=== PATIENT | female | born 1960 | race African-American/Black ===

== ENCOUNTER → 2017-04-01 | Outpatient (CLI) | payer BC | LOC: RAD 10:50 | PROVIDERS: ATTEND Family Medicine | DX: R10.31 Right lower quadrant pain (principal) | CPT/HCPCS: 74176 ==

== ENCOUNTER → 2017-07-17 | Outpatient (CLI) | payer BC ==
--- NOTE | 2017-07-19 13:23 | WOMENS IMAGING REPORT ---
EXAM DESCRIPTION: BILAT SCREENING MAMMO W/CAD COMPLETED DATE/TIME: 07/17/2017 3:40 pm REASON FOR STUDY: BILTERAL SCREENING Z12.31 ENCNTR SCREEN MAMMOGRAM FOR MALIGNANT NEOPLASM OF MARII COMPARISON: 2015 TECHNIQUE: Standard craniocaudal and mediolateral oblique views of each breast recorded using digita l acquisition. LIMITATIONS: None. FINDINGS: RIGHT BREAST MASSES: No suspicious masses. CALCIFICATIONS: No new or suspicious calcifications. ARCHITECTURAL DISTORTION: None. DEVELOPING DENSITY: None. ASYMMETRY: None noted. OTHER: No other significant findings. LEFT BREAST MASSES: No suspicious masses. CALCIFICATIONS: No new or suspicious calcifications. ARCHITECTURAL DISTORTION: Area of architecture distortion and possible developing mass central breast 12 o'clock 7.8 cm from the nipple DEVELOPING DENSITY: None. ASYMMETRY: None noted. OTHER: No other significant findings. Read with the assistance of CAD. .[facility] - R2 Cenova Version 1.3 .[facility] - R2 Cenova Version 1.3 .[facility] - R2 Cenova Version 2.4 .[facility] - R2 Cenova Version 2.4 .[facility] - R2 All Purpose Clerk Version 9.2 IMPRESSION: Architecture distortion in the left breast BREAST DENSITY: b. There are scattered areas of fibroglandular density. BIRAD: 0 Incomplete: Needs Additional Imaging Evaluation and/or prior Mammograms for Comparison. RECOMMENDATION: RECOMMENDED FOLLOW-UP: Breast tomosynthesis with spot compression and ultrasound. The patient will be contacted for additional imaging. COMMENT: The patient has been notified of the results by letter per [place] requirements. Additional no tification policies are in place for contacting patient with suspicious or incomplete findings. Quality ID #[id number]: The [employer] recommends an annual screening mammogram for women aged 40 years or over. This facility utilizes a reminder system to ensure that all patients receive reminder letters, and/or direct phone calls for appointments. This includes reminders for routine scr eening mammograms, diagnostic mammograms, or other Breast Imaging Interventions when appropriate. Th is patient will be placed in the appropriate reminder system. The [employer] (ACR) has developed recommendations for screening MRI of the breast s in certain patient populations, to be used in conjunction with mammography. Breast MRI surveillanc e may be appropriate for women with more than 20% lifetime risk of developing breast cancer as deter mined by genetic testing, significant family history of the disease, or history of mantle radiation f or Hodgkins Disease. ACR Practice Guidelines 2008. TECHNICAL DOCUMENTATION: FINDING NUMBER: (1) ASSESSMENT: (1) JOB ID: [id number] [employer]- All Rights Reserved
== END ==
LOC: WI 15:36
PROVIDERS: ATTEND Nurse Practitioner
DX: Z12.31 Encounter for screening mammogram for malignant neoplasm of breast (principal)
CPT/HCPCS: 77067; G0202

== ENCOUNTER → 2017-08-13 | Outpatient (CLI) | payer BC ==
--- NOTE | 2017-08-13 17:11 | WOMENS IMAGING REPORT ---
EXAM DESCRIPTION: 3D DX MAMMO LEFT UNILAT; U/S BREAST UNILAT LIMITED COMPLETED DATE/TIME: 08/13/2017 1:07 pm; 08/13/2017 1:35 pm REASON FOR STUDY: INCONCLUSIVE MAMMO; INCONCLUSIVE MAMMO; R92.2 R92.2 INCONCLUSIVE MAMMOGRAM COMPARISON: Multiple since 2015 TECHNIQUE: Cone compression craniocaudal and mediolateral oblique images of the breast recorded usin g digital acquisition and breast tomosynthesis. Left breast 90 mediolateral view. Left breast ultrasound LIMITATIONS: None. FINDINGS: BREAST: Left MASSES: The 12 o'clock position left breast, 5 to 6 cm from the nipple, a spiculated mass is present measuring about 2 cm in diameter. This mass is highly suspicious for malignancy. CALCIFICATIONS: No new or suspicious calcifications. ARCHITECTURAL DISTORTION: None. DEVELOPING DENSITY: None. ASYMMETRY: None noted. OTHER: No other significant findings. Read with the assistance of CAD. .[facility] - R2 Cenova Version 1.3 .[facility] - R2 Cenova Version 1.3 .[facility] - R2 Cenova Version 2.4 .[facility] [place] - R2 Cenova Version 2.4 .[facility] - R2 Reli[employer] Technicians Version 9.2 Left breast ultrasound: Ultrasound was performed by both myself as well as the technologist. At the 12 o'clock position, a 2 .4 x 1.5 cm mass is present with ill-defined margins internal color flow and acoustic absorption high ly suspicious for malignancy. This finding was discussed with the patient. She understands the need for left breast biopsy. IMPRESSION: Left breast mass at the 12 o'clock position highly suspicious for malignancy (BI-RADS 5) BREAST DENSITY: b. There are scattered areas of fibroglandular density. BIRAD: 5 Highly suggestive of malignancy. Appropriate action should be taken. RECOMMENDATION: RECOMMENDED FOLLOW UP: Left breast ultrasound-guided core biopsy and post biopsy cli p placement. Follow-up left breast two-view mammogram SPECIFIC INTERVENTION/IMAGING/CONSULTATION RECOMMENDED:As above COMMUNICATION:Today's findings were discussed with the patient, she understands that she needs a left breast biopsy. The findings were also discussed with Lashonda Frederick 08/13/2017 1330 hours. COMMENT: The patient has been notified of the results by letter per MQSA requirements. Additional no tification policies are in place for contacting patient with suspicious or incomplete findings. Quality ID #[id number]: The [employer] recommends an annual screening mammogram for women aged 40 years or over. This facility utilizes a reminder system to ensure that all patients receive reminder letters, and/or direct phone calls for appointments. This includes reminders for routine scr eening mammograms, diagnostic mammograms, or other Breast Imaging Interventions when appropriate. Th is patient will be placed in the appropriate reminder system. The [employer] (ACR) has developed recommendations for screening MRI of the breast s in certain patient populations, to be used in conjunction with mammography. Breast MRI surveillanc e may be appropriate for women with more than 20% lifetime risk of developing breast cancer as deter mined by genetic testing, significant family history of the disease, or history of mantle radiation f or Hodgkins Disease. ACR Practice Guidelines 2008. DBT Technology DBT is a type of tomographic mammography. With conventional mammography, overlapping breast tissue ma y make lesions difficult to detect, even with good compression. DBT uses an x-ray tube that rotates a round the breast, taking images at different angles. These images are then combined to create thin sl ices of the breast that the radiologist can view as a 3D reconstruction. The [employer] unit can perform full-field digital mammograms (2D imaging); or DBT (3D imaging); or both, in a combination mode that quickly performs both the mammogram and the tomosynthesis scan while the breast is still compressed. PQRS 6045F: Fluoroscopic imaging is not utilized for breast tomosynthesis. TECHNICAL DOCUMENTATION: FINDING NUMBER: (1) ASSESSMENT: (1) JOB ID: [id number] [employer]- All Rights Reserved
--- NOTE | 2017-08-13 17:11 | WOMENS IMAGING REPORT ---
EXAM DESCRIPTION: 3D DX MAMMO LEFT UNILAT; U/S BREAST UNILAT LIMITED COMPLETED DATE/TIME: 08/13/2017 1:07 pm; 08/13/2017 1:35 pm REASON FOR STUDY: INCONCLUSIVE MAMMO; INCONCLUSIVE MAMMO; R92.2 R92.2 INCONCLUSIVE MAMMOGRAM COMPARISON: Multiple since 2015 TECHNIQUE: Cone compression craniocaudal and mediolateral oblique images of the breast recorded usin g digital acquisition and breast tomosynthesis. Left breast 90 mediolateral view. Left breast ultrasound LIMITATIONS: None. FINDINGS: BREAST: Left MASSES: The 12 o'clock position left breast, 5 to 6 cm from the nipple, a spiculated mass is present measuring about 2 cm in diameter. This mass is highly suspicious for malignancy. CALCIFICATIONS: No new or suspicious calcifications. ARCHITECTURAL DISTORTION: None. DEVELOPING DENSITY: None. ASYMMETRY: None noted. OTHER: No other significant findings. Read with the assistance of CAD. .[facility] - R2 Cenova Version 1.3 .[facility] - R2 Cenova Version 1.3 .[facility] - R2 Cenova Version 2.4 .[facility] - R2 Cenova Version 2.4 .[facility] - R2 Certified Juvenile Probation Officer Version 9.2 Left breast ultrasound: Ultrasound was performed by both myself as well as the technologist. At the 12 o'clock position, a 2 .4 x 1.5 cm mass is present with ill-defined margins internal color flow and acoustic absorption high ly suspicious for malignancy. This finding was discussed with the patient. She understands the need for left breast biopsy. IMPRESSION: Left breast mass at the 12 o'clock position highly suspicious for malignancy (BI-RADS 5) BREAST DENSITY: b. There are scattered areas of fibroglandular density. BIRAD: 5 Highly suggestive of malignancy. Appropriate action should be taken. RECOMMENDATION: RECOMMENDED FOLLOW UP: Left breast ultrasound-guided core biopsy and post biopsy cli p placement. Follow-up left breast two-view mammogram SPECIFIC INTERVENTION/IMAGING/CONSULTATION RECOMMENDED:As above COMMUNICATION:Today's findings were discussed with the patient, she understands that she needs a left breast biopsy. The findings were also discussed with Lashonda Frederick 08/13/2017 1330 hours. COMMENT: The patient has been notified of the results by letter per MQSA requirements. Additional no tification policies are in place for contacting patient with suspicious or incomplete findings. Quality ID #[id number]: The [employer] recommends an annual screening mammogram for women aged 40 years or over. This facility utilizes a reminder system to ensure that all patients receive reminder letters, and/or direct phone calls for appointments. This includes reminders for routine scr eening mammograms, diagnostic mammograms, or other Breast Imaging Interventions when appropriate. Th is patient will be placed in the appropriate reminder system. The [employer] (ACR) has developed recommendations for screening MRI of the breast s in certain patient populations, to be used in conjunction with mammography. Breast MRI surveillanc e may be appropriate for women with more than 20% lifetime risk of developing breast cancer as deter mined by genetic testing, significant family history of the disease, or history of mantle radiation f or Hodgkins Disease. ACR Practice Guidelines 2008. DBT Technology DBT is a type of tomographic mammography. With conventional mammography, overlapping breast tissue ma y make lesions difficult to detect, even with good compression. DBT uses an x-ray tube that rotates a round the breast, taking images at different angles. These images are then combined to create thin sl ices of the breast that the radiologist can view as a 3D reconstruction. The [employer] unit can perform full-field digital mammograms (2D imaging); or DBT (3D imaging); or both, in a combination mode that quickly performs both the mammogram and the tomosynthesis scan while the breast is still compressed. PQRS 6045F: Fluoroscopic imaging is not utilized for breast tomosynthesis. TECHNICAL DOCUMENTATION: FINDING NUMBER: (1) ASSESSMENT: (1) JOB ID: [id number] [employer] All Rights Reserved
== END ==
LOC: WI 12:35
PROVIDERS: ATTEND Nurse Practitioner
DX: N63 Unspecified lump in breast (principal)
CPT/HCPCS: 77061; 76642; G0206

== ENCOUNTER → 2017-08-19 | Day surgery (SDC) | payer BC ==
--- NOTE | 2017-08-21 09:00 | WOMENS IMAGING REPORT ---
EXAM DESCRIPTION: U/S BREAST BX; LEFT DIG DX MAMMO NO CHG COMPLETED DATE/TIME: 08/19/2017 10:31 am; 08/19/2017 10:18 am REASON FOR STUDY: LT BREAST MASS; S/P LT BREAST BIOPSY N63 UNSPECIFIED LUMP IN BREAST COMPARISON: Previous mammograms and ultrasound 08/13/2017, 07/17/2017, 07/09/2016 TECHNIQUE: The procedure was discussed with the patient and the patient agreed to proceed. The patient was scanned and the area of interest in the 12 o'clock position 9 to 10 cm from the nippl e of the left breast was localized. This correlates with the area of concern on prior imaging studie s. This area was targeted for ultrasound-guided core biopsy. After sterile skin prep and 4 mL local lidocaine 1% for skin and deep tissue anesthesia, a 14 gauge c oaxial core biopsy needle was used to obtain several cores of tissue from the lesion. Under ultrasou nd guidance, a RIBBON clip was placed in the areas sampled. There were no immediate post-procedure c omplications. MAMMOGRAM: Post-procedure two view mammogram was acquired in the digital mammogram suite. The clip wa s 2 cm deep to the expected location on the follow-up mammograms. No significant hematoma. Pathology yields a diagnosis of invasive ductal carcinoma Pathology is concordant. Procedure performed by Dr. Corcoran, who notified the ordering physician's office of the results, . This result was also discussed with the ordering physician's office, 08/21/2017 0800 hours. LIMITATIONS: None. FINDINGS: Ultrasound guided breast biopsy, right breast, medial set diagnosis of invasive ductal car cinoma at the 12 o'clock position POST PROCEDURE MAMMOGRAMS FOR MARKER PLACEMENT: Yes IMPRESSION: ULTRASOUND-GUIDED CORE BIOPSY OF THE LEFT BREAST YIELDS A DIAGNOSIS OF INVASIVE DUCTAL C ARCINOMA BI-RADS 6 Known biopsy-proven malignancy. Appropriate action should be taken. COMMENT: COMMUNICATION: The patient's provider has been notified of the findings. The provider will discuss the findings with the patient. Patient medication list reviewed: Yes- Quality ID# [id number]:Eligible professional attests to documenting i n the medical record they obtained, updated, or reviewed the patient's current medications. TECHNICAL DOCUMENTATION: JOB ID: [id number] [employer]- All Rights Reserved
== END ==
LOC: WI 08:57
PROVIDERS: ATTEND Nuclear Medicine
PROC: 0HBU3ZX Excision of Left Breast, Percutaneous Approach, Diagnostic (ICD-10-PCS; principal; 2017-08-19)
DX: C50.912 Malignant neoplasm of unspecified site of left female breast (principal)
CPT/HCPCS: 19083; 88305; 88342

== ENCOUNTER 2017-12-23 11:58 | Inpatient (IN) | payer BC ==
[2017-12-23] MEDS ORDERED: NORMAL SALINE 1000 ML 1,000 ML IV ONE ×3 (12:42→17:07)
[2017-12-23] MEDS ORDERED: ONDANSETRON HCL INJ/PF 4 MG/2 ML SDV IV ONE (12:43)
--- NOTE | 2017-12-23 12:44 | ER Document Report ---
ED Medical Screen (RME) - General Chief Complaint: General Weakness Stated Complaint: WEAKNESS,NAUSEA Time Seen by Provider: 12/23/17 12:42 Notes: Patient is currently on chemotherapy for breast cancer. She reports feeling very weak with lots of nausea and vomiting over the last several days. TRAVEL OUTSIDE OF THE [place] IN LAST 30 DAYS: No - Related Data Allergies/Adverse Reactions: Sulfa (Sulfonamide Antibiotics) Adverse Reaction (Verified 12/23/17 12:00) Past Medical History Renal/ Medical History: Denies: Hx Peritoneal Dialysis Physical Exam - Vital signs Vitals: Temp Pulse Resp BP Pulse Ox 99.3 F 142 H 18 113/94 H 99 12/23/17 12:13 12/23/17 12:13 12/23/17 12:13 12/23/17 12:13 12/23/17 12:13 Course - Vital Signs Vital signs: Temp Pulse Resp BP Pulse Ox 99.3 F 142 H 18 113/94 H 99 12/23/17 12:13 12/23/17 12:13 12/23/17 12:13 12/23/17 12:13 12/23/17 12:13
[2017-12-23 13:13] LABS: HEMOGLOBIN 11.5 g/dL (12.0-15.5); MEAN CORPUSCULAR HEMOGLOBIN 28.8 pg (27.0-33.4); MEAN CORPUSCULAR HGB CONC 32.8 g/dL (32.0-36.0); MEAN CORPUSCULAR VOLUME 88 fl (80-97); PLATELET COUNT 105 10^3/uL (150-450); RED BLOOD COUNT 3.98 10^6/uL (3.72-5.28); RED CELL DISTRIBUTION WIDTH 19.5 % (11.5-14.0); WHITE BLOOD COUNT 16.3 10^3/uL (4.0-10.5)
[2017-12-23 13:19] LABS: INTERNATIONAL RATION (INR) 1.04; PROTHROMBIN TIME 14.3 SEC (11.4-15.4)
[2017-12-23 13:32] LABS: ALANINE AMINOTRANSFERASE 29 U/L (9-52); ALBUMIN 3.3 g/dL (3.5-5.0); ALKALINE PHOSPHATASE 121 U/L (38-126); ANION GAP 9 (5-19); ASPARTATE AMINO TRANSFERASE 14 U/L (14-36); BILIRUBIN,DIRECT 0.1 mg/dL (0.0-0.4); BILIRUBIN,TOTAL 1.1 mg/dL (0.2-1.3); BLOOD UREA NITROGEN 34 mg/dL (7-20); CALCIUM 9.3 mg/dL (8.4-10.2); CARBON DIOXIDE 22 mmol/L (22-30); CHLORIDE 100 mmol/L (98-107); POTASSIUM 5.1 mmol/L (3.6-5.0); SODIUM 130.5 mmol/L (137-145); TOTAL PROTEIN 5.6 g/dL (6.3-8.2)
[2017-12-23 13:39] LABS: GLUCOSE 423 mg/dL (75-110)
[2017-12-23 13:44] LABS: ABSOLUTE LYMPHOCYTES# (MANUAL) 2.1 10^3/uL (0.5-4.7); ABSOLUTE MONOCYTES # (MANUAL) 1.1 10^3/uL (0.1-1.4); ANISOCYTOSIS 2+; BAND NEUTROPHILS % (MANUAL) 2 % (3-5); BASOPHILS % (MANUAL) 0 % (0-2); EOSINOPHILS % (MANUAL) 0 % (0-6); LYMPHOCYTES % (MANUAL) 13 % (13-45); MONOCYTES % (MANUAL) 7 % (3-13); OVALOCYTES SLIGHT; PLATELET COMMENT DECREASED; POIKILOCYTOSIS 1+; ROULEAUX 1+; SCHISTOCYTES SLIGHT; SEGMENTED NEUTROPHILS % (MAN) 78 % (42-78); TEAR DROP CELLS SLIGHT; TOTAL CELLS COUNTED 100; TOXIC GRANULATION SLIGHT
--- NOTE | 2017-12-23 13:56 | RADIOLOGY REPORT (SQ) ---
EXAM DESCRIPTION: CHEST SINGLE VIEW portable COMPLETED DATE/TIME: 12/23/2017 1:39 pm REASON FOR STUDY: cough COMPARISON: 2008 EXAM PARAMETERS: NUMBER OF VIEWS: One view. TECHNIQUE: Single frontal radiographic view of the chest acquired. RADIATION DOSE: NA LIMITATIONS: None. FINDINGS: LUNGS AND PLEURA: No opacities, masses or pneumothorax. No pleural effusion. MEDIASTINUM AND HILAR STRUCTURES: No masses. Contour normal. HEART AND VASCULAR STRUCTURES: Heart normal in size. Normal vasculature. BONES: No acute findings. HARDWARE: Port on the right. OTHER: No other significant finding. IMPRESSION: Nothing acute. TECHNICAL DOCUMENTATION: JOB ID: [id number] [employer]- All Rights Reserved
[2017-12-23] MEDS ORDERED: CEFEPIME 1 GM/D5W RTU 1 GM/50 ML RTUPB IV ONE (15:32)
--- NOTE | 2017-12-23 15:35 | ER Document Report ---
ED General - General Chief Complaint: General Weakness Stated Complaint: WEAKNESS,NAUSEA Time Seen by Provider: 12/23/17 12:42 TRAVEL OUTSIDE OF THE [place] IN LAST 30 DAYS: No - HPI Patient complains to provider of: not feeling well Onset: Last week Onset/Duration: Gradual, Worse Quality of pain: No pain Associated symptoms: Body/muscle aches, Chills, Nonproductive cough, Nausea, Vomiting Exacerbated by: Denies Relieved by: Denies - Related Data Allergies/Adverse Reactions: Sulfa (Sulfonamide Antibiotics) Adverse Reaction (Verified 12/23/17 12:00) Past Medical History - General Information source: Patient - Social History Smoking Status: Never Smoker Frequency of alcohol use: None Drug Abuse: None Lives with: Family Family History: Reviewed & Not Pertinent Patient has suicidal ideation: No Patient has homicidal ideation: No - Past Medical History Cardiac Medical History: Reports: Hx Hypertension Pulmonary Medical History: Reports: None Neurological Medical History: Reports: None Endocrine Medical History: Reports: Hx Diabetes Mellitus Type 2 Renal/ Medical History: Denies: Hx Peritoneal Dialysis Malignancy Medical History: Reports: Hx Breast Cancer - chemo 2 weeks ago Psychiatric Medical History: Reports: None Traumatic Medical History: Reports: None Past Surgical History: Reports: Other - port Review of Systems - Review of Systems Constitutional: Chills, Weakness EENT: No symptoms reported Cardiovascular: No symptoms reported Respiratory: No symptoms reported Gastrointestinal: See HPI Genitourinary: No symptoms reported Female Genitourinary: No symptoms reported Musculoskeletal: No symptoms reported Skin: No symptoms reported Hematologic/Lymphatic: No symptoms reported Neurological/Psychological: No symptoms reported Physical Exam - Vital signs Vitals: Temp Pulse Resp BP Pulse Ox 99.3 F 142 H 18 113/94 H 99 12/23/17 12:13 12/23/17 12:13 12/23/17 12:13 12/23/17 12:13 12/23/17 12:13 - Notes Notes: Female exam PHYSICAL EXAMINATION: GENERAL: The ill-appearing. No acute distress. HEAD: Atraumatic, normocephalic. EYES: Pupils equal round and reactive to light, extraocular movements intact, conjunctiva are normal. ENT: Nares patent, oropharynx with white patchy areas consistent with thrush. Dry mucous membranes. NECK: Normal range of motion, supple without lymphadenopathy LUNGS: Breath sounds clear to auscultation bilaterally and equal. No wheezes rales or rhonchi. HEART:tachy without murmurs ABDOMEN: Soft, nontender, nondistended abdomen. No guarding, no rebound. No masses appreciated. Female : deferred Musculoskeletal: Normal range of motion, no pitting or edema. No cyanosis. NEUROLOGICAL: Cranial nerves grossly intact. Normal speech. Normal sensory, motor exams PSYCH: Normal mood, normal affect. SKIN: Warm, Dry, normal turgor, no rashes or lesions noted. Right anterior chest wall without signs or symptoms of infection Course - Re-evaluation Re-evalutation: 12/23/17 17:[address] Odering third NS bolus. - Vital Signs Vital signs: Temp Pulse Resp BP Pulse Ox 99.5 F 142 H 18 110/70 98 12/23/17 16:14 12/23/17 12:13 12/23/17 16:00 12/23/17 13:13 12/23/17 13:13 - Laboratory Result Diagrams: 12/23/17 12:55 12/23/17 12:55 Laboratory results interpreted by me: 12/23/17 12/23/17 12:55 12:55 WBC 16.3 H Hgb 11.5 L Hct 35.0 L RDW 19.5 H Plt Count 105 L Band Neutrophils % 2 L Abs Neuts (Manual) 13.0 H Sodium 130.5 L Potassium 5.1 H BUN 34 H Creatinine 1.51 H Est GFR ( Amer) 43 L Est GFR (Non-Af Amer) 35 L Glucose 423 H* Total Protein 5.6 L Albumin 3.3 L - Diagnostic Test Radiology reviewed: Image reviewed, Reports reviewed Radiology results interpreted by me: 12/23/17 17:03 No acute findings chest x-ray - EKG Interpretation by Me Rate: Tachycardia - 132. LVH Discharge - Discharge Clinical Impression: Breast cancer, Neutrophilic leukocytosis, Hyponatremia, Uncontrolled diabetes mellitus, Thrush, oral, Sinus tachycardia Condition: Stable Disposition: ADMITTED INPATIENT Admitting Provider: Hospitalist Romi Mcdermott Unit Admitted: Telemetry
[2017-12-23 17:24] LABS: APPEARANCE,URINE SLIGHTLY-CLOUDY; BILIRUBIN,URINE NEGATIVE (NEGATIVE); COLOR,URINE YELLOW; GLUCOSE, URINE >=500 mg/dL (NEGATIVE); KETONES,URINE NEGATIVE (NEGATIVE); LEUKOCYTE ESTERASE,URINE LARGE (NEGATIVE); NITRITE,URINE NEGATIVE (NEGATIVE); PROTEIN,URINE 30 mg/dL (NEGATIVE); URINE SPECIFIC GRAVITY 1.015; UROBILINOGEN,URINE NEGATIVE mg/dL (<2.0)
[2017-12-23] MEDS ORDERED: ONDANSETRON HCL INJ/PF 4 MG/2 ML SDV IV PRN (17:33)
[2017-12-23] MEDS ORDERED: DEXTROSE 50%-WATER 25 GM/50 ML DISP.SYRIN IV PRN ×2 (17:43)
[2017-12-23] MEDS ORDERED: GLUCAGON,HUMAN RECOMB 1 MG INJ IM PRN (17:43)
[2017-12-23] MEDS ORDERED: DEXTROSE 40% GEL 15 GM TUBE PO PRN ×2 (17:43)
[2017-12-23] MEDS ORDERED: POTASSI CL 20 MEQ/NS 1L 1,000 ML IV PRN (17:49)
[2017-12-23] MEDS ORDERED: PIPERACILLIN SODIUM/TAZOBACTAM 3.375 GM in NORMAL SALINE 100 ML IV SCH (18:00)
[2017-12-23] MEDS ORDERED: VANCOMYCIN HCL 0 MG in DEXTROSE 5%-WATER 250 ML IV NR (18:00)
--- NOTE | 2017-12-23 18:13 | PDOC H&P ---
History of Present Illness Admission Date/PCP: 12/23/17 15:49 director product safety: [facility] Oncologist: [facility] in [place] History of Present Illness: CINTHIA ROSS is a 57 year old female who presents to the emergency room with fever and shaking chills and weakness. Her past medical history is significant for stage II breast cancer for which she is undergoing treatment in [place]. The patient is feeling quite poorly and this an extremely poor historian however it appears her past medical history is significant for a transplanted kidney in 1998, diabetes mellitus, hypertension and hyperlipidemia. She is chronically immunosuppressed due to her transplanted kidney. She reports that s she just started a new chemotherapy a couple of weeks ago and that she is felt extremely poorly since that time. She has had increasing weakness. She has poor p.o. intake and has not been eating or drinking. She states that she has a dry cough. She has had nausea but no vomiting. She has some mild stomach pain and she is having dysuria and thinks she may have a urinary tract infection. Past Medical History Cardiac Medical History: Reports: Hypertension Pulmonary Medical History: Reports: None Neurological Medical History: Reports: None Endocrine Medical History: Reports: Diabetes Mellitus Type 2 Renal/ Medical History: Reports: Other - The patient has a transplanted kidney Malignancy Medical History: Reports: Breast Cancer - chemo 2 weeks ago Psychiatric Medical History: Reports: None Traumatic Medical History: Reports: None Hematology: Reports: Anemia - Iron deficiency anemia Past Surgical History Past Surgical History: Reports: Other - port Social History Information Source: Patient Lives with: Family Smoking Status: Never Smoker Frequency of Alcohol Use: None Hx Recreational Drug Use: No Family History Family History: Reviewed & Not Pertinent Parental Family History Reviewed: Yes Children Family History Reviewed: Yes Sibling(s) Family History Reviewed.: Yes Medication/Allergy Allergies/Adverse Reactions: Sulfa (Sulfonamide Antibiotics) Adverse Reaction (Verified 12/23/17 12:00) Review of Systems Constitutional: PRESENT: anorexia, chills, fatigue, fever(s), headache(s), weakness Eyes: ABSENT: visual disturbances Ears: ABSENT: hearing changes Nose, Mouth, and Throat: PRESENT: headache(s). ABSENT: mouth pain, sore throat , vertigo Cardiovascular: ABSENT: chest pain, dyspnea on exertion, edema, palpitations Respiratory: PRESENT: cough. ABSENT: hemoptysis, sputum Gastrointestinal: PRESENT: abdominal pain, nausea. ABSENT: diarrhea, vomiting Genitourinary: PRESENT: dysuria. ABSENT: hematuria Musculoskeletal: PRESENT: back pain, muscle weakness Integumentary: ABSENT: lesions, rash Neurological: PRESENT: confusion, dizziness, weakness. ABSENT: abnormal gait Psychiatric: ABSENT: anxiety, depression, hallucinations Endocrine: PRESENT: cold intolerance - Discharge 5 Physical Exam Vital Signs: Temp Pulse Resp BP Pulse Ox 99.5 F 142 H 18 110/70 98 12/23/17 16:14 12/23/17 12:13 12/23/17 16:00 12/23/17 13:13 12/23/17 13:13 General appearance: PRESENT: no acute distress, well-developed, well-nourished, other - Acutely ill-appearing Head exam: PRESENT: atraumatic, normocephalic Eye exam: PRESENT: conjunctiva pink, EOMI, PERRLA. ABSENT: scleral icterus Ear exam: PRESENT: normal external ear exam Mouth exam: PRESENT: dry mucosa, tongue midline Neck exam: ABSENT: carotid bruit, JVD, lymphadenopathy, thyromegaly Respiratory exam: PRESENT: clear to auscultation niki. ABSENT: rales, rhonchi, wheezes Cardiovascular exam: PRESENT: RRR. ABSENT: diastolic murmur, rubs, systolic murmur Pulses: PRESENT: normal dorsalis pedis pul GI/Abdominal exam: PRESENT: soft, tenderness. ABSENT: rebound, rigid Rectal exam: PRESENT: deferred Extremities exam: PRESENT: full ROM. ABSENT: calf tenderness, clubbing, pedal edema Neurological exam: PRESENT: alert, awake, oriented to person, oriented to place , oriented to time, oriented to situation, CN II-XII grossly intact. ABSENT: motor sensory deficit Psychiatric exam: PRESENT: appropriate affect, normal mood. ABSENT: homicidal ideation, suicidal ideation Skin exam: PRESENT: dry, intact, warm. ABSENT: cyanosis, rash Results Laboratory Results: 12/23/17 16:55 Urine Color YELLOW Urine Appearance SLIGHTLY-CLOUDY Urine pH 5.0 Ur Specific [place] 1.015 Urine Protein 30 H Urine Glucose (UA) >=500 H Urine Ketones NEGATIVE Urine Blood SMALL H Urine Nitrite NEGATIVE Ur Leukocyte Esterase LARGE H Urine WBC (Auto) 42 Urine RBC (Auto) 5 Impressions: Chest X-Ray 12/23/17 00:00 IMPRESSION: Nothing acute. Assessment & Plan - Diagnosis (1) Sepsis Plan: The patient has evidence of early sepsis. She has leukocytosis, fever, tachypnea, sinus tachycardia and evidence of infection with a urinary tract infection. She also she also is chronically immunosuppressed due to her immunosuppressive drugs for her kidney transplant and recent chemotherapy and may not be mounting an impressive immune response. Therapy will be outlined below. (2) Urinary tract infection Is this a current diagnosis for this admission?: Yes Plan: Foods that the patient is having fevers and shaking chills. She is chronically immunosuppressed. At this point the only source of infection that we are finding is evidence of a urinary tract infection. Due to her significant immunosuppressives immunosuppressed state I am going to place the patient on broad-spectrum IV antibiotics with IV vancomycin and Zosyn. (3) Fever Is this a current diagnosis for this admission?: Yes Plan: The patient is significantly dehydrated. She did also complains of a cough. Chest x-ray was not concerning for underlying pneumonia. The patient will be hydrated with IV fluids tonight and we will recheck a chest x-ray in the morning to see if there is a dividing pneumonia. She will be placed on broad- spectrum IV antibiotics as mentioned above. (4) Transplanted kidney Is this a current diagnosis for this admission?: Yes Plan: The patient will continue her tacrolimus and azathioprine. Unfortunately we do not have nephrology here over the weekend. She cannot recall who her airbrush artist was. Her creatinine was 1.5 at the time of admission. I do not know what her baseline is as all of her doctors are out of town. We will have to watch her kidney function quite closely. (5) Hypertension Is this a current diagnosis for this admission?: Yes Plan: The patient's blood pressure is on the low side likely due to her underlying infection. I am going to hold her Tekturna as well as her amlodipine. (6) Diabetes mellitus Plan: The patient is insulin-dependent. We will continue her Lantus at 28 units nightly. She will also have sliding scale coverage available. Her blood sugar was markedly elevated at the time of admission. Likely due to her acute illness. (7) Anemia Plan: Likely multifactorial. The patient takes iron supplementation at home so she has an element of iron deficiency. Also likely related to her underlying malignancy. (8) Hyponatremia Is this a current diagnosis for this admission?: Yes Plan: She will have a chemistry panel drawn in the morning. (9) Hyperkalemia Is this a current diagnosis for this admission?: Yes Plan: This is quite mild. We will check a chemistry panel in the morning. (10) Elevated serum creatinine Is this a current diagnosis for this admission?: Yes Plan: I do not know what her baseline creatinine is. Currently it is 1.5. She will be given normal saline overnight. She does have a transplanted kidney and is quite ill. We will check a chemistry panel in the morning. - Time Time Spent: Greater than 70 Minutes - Inpatient Certification Medical Necessity: Significant Comorbidiites Make Outpatient Treatment Too Risky , Need Close Monitoring Due to Risk of Patient Decompensation, Need For IV Fluids, Need for IV Antibiotics, Other - Inpatient hospitalization remains necessary. This is a chronically immunosuppressed patient on chemotherapy coming in with signs of early sepsis. She is requiring parenteral fluids and antibiotics. I expect she will be in the hospital for several days.
[2017-12-23 18:50] LABS: VENOUS BLOOD BASE EXCESS -1.9 mmol/L; VENOUS BLOOD HCO3 21.6 mmol/L (20-32); VENOUS BLOOD PCO2 30.4 mmHg (35-63); VENOUS BLOOD PH 7.47 (7.30-7.42)
[2017-12-23] MEDS ORDERED: PIPERACILLIN SODIUM/TAZOBACTAM 2.25 GM in NORMAL SALINE 50 ML IV SCH (21:00)
[2017-12-23] MEDS ORDERED: INSULIN GLARGINE,HUM.REC.ANLOG 300 UNIT/3 ML INSULN.PEN SUBCUT SCH (22:00)
[2017-12-23] MEDS: GABAPENTIN 300 MG CAPSULE PO SCH (23:06)
[2017-12-23] MEDS: TACROLIMUS ANHYDROUS 1 MG CAPSULE PO SCH (23:06)
[2017-12-23] MEDS: ATORVASTATIN CALCIUM 80 MG TABLET PO SCH (23:06)
--- NOTE | 2017-12-23 23:37 | EKG REPORT ---
SEVERITY:- ABNORMAL ECG - SINUS TACHYCARDIA NUPUR, CONSIDER BIATRIAL ABNORMALITIES LEFT VENTRICULAR HYPERTROPHY BORDERLINE T ABNORMALITIES, INFERIOR LEADS : Confirmed by: Batool Butler 23-Dec-2017 23:37:33
[2017-12-23] MEDS ORDERED: VANCOMYCIN HCL 2,000 MG in DEXTROSE 5%-WATER 500 ML IV ONE (23:45)
[2017-12-23] MEDS ORDERED: VANCOMYCIN HCL INJ 1000 MG VIAL IV PRN (23:50)
[2017-12-24] MEDS: INSULIN LISPRO 100 UNIT/ML 3 ML VIAL SUBCUT PRN ×4 (00:28→23:02)
[2017-12-24] MEDS ORDERED: NORMAL SALINE 1000 ML 1,000 ML IV PRN (00:50)
[2017-12-24] MEDS ORDERED: VANCOMYCIN HCL INJ 1000 MG VIAL ONE (00:59)
[2017-12-24] MEDS ORDERED: DILTIAZEM HCL 60 MG TABLET PO ONE (01:00)
[2017-12-24] MEDS ORDERED: DILTIAZEM HCL 30 MG TABLET PO ONE (03:00)
[2017-12-24] MEDS ORDERED: CEFEPIME 1 GM/D5W RTU 1 GM/50 ML RTUPB IV ONE ×2 (03:30→03:40)
[2017-12-24] MEDS: DILTIAZEM HCL 30 MG TABLET PO SCH ×4 (05:37→23:03)
[2017-12-24] MEDS: LANSOPRAZOLE 30 MG TAB.RAP.DR PO SCH (05:38)
[2017-12-24] MEDS: PIPERACILLIN SODIUM/TAZOBACTAM 2.25 GM in NORMAL SALINE 50 ML IV SCH ×3 (05:39→17:58)
[2017-12-24] MEDS: PREDNISONE 5 MG TABLET PO SCH (09:35)
[2017-12-24] MEDS: FERROUS SULFATE 325 MG TABLET PO SCH (09:35)
[2017-12-24] MEDS: AZATHIOPRINE 50 MG TABLET PO SCH (09:36)
[2017-12-24] MEDS: TACROLIMUS ANHYDROUS 1 MG CAPSULE PO SCH ×2 (09:36→23:03)
[2017-12-24] MEDS: ENOXAPARIN SODIUM INJ 40 MG/0.4 ML DISP.SYRIN SUBCUT SCH (09:37)
[2017-12-24] MEDS ORDERED: ALISKIREN HEMIFUMARATE 150 MG TABLET PO SCH (10:00)
--- NOTE | 2017-12-24 18:31 | PDOC PROGRESS REPORT ---
Subjective Progress Note for:: 12/24/17 Subjective:: Patient refers that feels better however is not specific as far as which symptoms had improved. She is more concerned about finding her glasses Review of systems All organ systems evaluated and negative except as seen subjective All laboratories and diagnostics have been reviewed Reason For Visit: FEVER,IMMUNOSUPPRESSED Physical Exam Vital Signs: Temp Pulse Resp BP Pulse Ox 99.4 F 114 H 20 132/61 H 100 12/24/17 04:48 12/24/17 04:48 12/24/17 04:48 12/24/17 04:48 12/24/17 04:48 Intake & Output 12/23/17 12/24/17 12/25/17 06:59 06:59 06:59 Intake Total 1500 Balance 1500 Weight 89.7 kg General appearance: PRESENT: no acute distress, cooperative, obese Head exam: PRESENT: atraumatic, normocephalic Eye exam: PRESENT: conjunctiva pink, EOMI, PERRLA Ear exam: PRESENT: normal external ear exam, TM's normal bilaterally Mouth exam: PRESENT: moist, neck supple Neck exam: PRESENT: full ROM. ABSENT: JVD, lymphadenopathy, tenderness Respiratory exam: PRESENT: clear to auscultation niki Cardiovascular exam: PRESENT: RRR. ABSENT: diastolic murmur, systolic murmur Vascular exam: PRESENT: normal capillary refill GI/Abdominal exam: PRESENT: normal bowel sounds, soft. ABSENT: tenderness Extremities exam: PRESENT: full ROM. ABSENT: joint swelling, pedal edema Musculoskeletal exam: PRESENT: full ROM Neurological exam: PRESENT: alert, awake, oriented to person, oriented to place , oriented to time, oriented to situation, CN II-XII grossly intact Psychiatric exam: PRESENT: appropriate affect, normal mood Skin exam: PRESENT: intact, normal color Results Laboratory Results: 12/23/17 12/23/17 16:55 18:25 VBG pH 7.47 H VBG pCO2 30.4 L VBG HCO3 21.6 VBG Base Excess -1.9 Urine Color YELLOW Urine Appearance SLIGHTLY-CLOUDY Urine pH 5.0 Ur Specific [place] 1.015 Urine Protein 30 H Urine Glucose (UA) >=500 H Urine Ketones NEGATIVE Urine Blood SMALL H Urine Nitrite NEGATIVE Ur Leukocyte Esterase LARGE H Urine WBC (Auto) 42 Urine RBC (Auto) 5 Impressions: Chest X-Ray 01/22/18 00:00 IMPRESSION: Nothing acute. Assessment & Plan - Diagnosis (1) UTI (urinary tract infection) Qualifiers: Urinary tract infection type: acute cystitis Hematuria presence: with hematuria Qualified Code(s): N30.01 - Acute cystitis with hematuria Is this a current diagnosis for this admission?: Yes Plan: Gram-negative bacilli growing in urine culture. Likely culprit of presentation. Will continue current management (2) Bacteremia Is this a current diagnosis for this admission?: Yes Plan: 1 blood culture bottle positive so there is still a possibility of being a contaminant. Will await for result. Will repeat blood culture (3) Anemia Qualifiers: Anemia type: unspecified type Qualified Code(s): D64.9 - Anemia, unspecified Is this a current diagnosis for this admission?: Yes Plan: Likely of chronic disease. We will trend (4) Breast cancer Qualifiers: Breast location: unspecified site of breast Laterality: unspecified laterality Is this a current diagnosis for this admission?: Yes Plan: Patient made aware that for now likely she will not be able to get the next course of chemotherapy due to infection (5) Diabetes mellitus Qualifiers: Diabetes mellitus type: type 2 Diabetes mellitus complication status: with unspecified complications Diabetes mellitus middle or intermediate school principal insulin use: with [place] use Qualified Code(s): E11.8 - Type 2 diabetes mellitus with unspecified complications; Z79.4 - senior care (current) use of insulin; Z79.4 - middle or intermediate school principal ( current) use of insulin; Z79.4 - middle or intermediate school principal (current) use of insulin; Z79.4 - senior care (current) use of insulin Is this a current diagnosis for this admission?: Yes Plan: Increase Lantus to 28 units twice a day and will continue sliding scale (6) Elevated serum creatinine Is this a current diagnosis for this admission?: Yes Plan: To trend - Time Time Spent with patient: 15-24 minutes Medications reviewed and adjusted accordingly: Yes Anticipated discharge: Home Within: within 72 hours - Inpatient Certification Based on my medical assessment, after consideration of the patient's comorbidities, presenting symptoms, or acuity I expect that the services needed warrant INPATIENT care.: Yes I certify that my determination is in accordance with my understanding of Medicare's requirements for reasonable and necessary INPATIENT services [42 CFR 412.3e].: Yes Medical Necessity: Need Close Monitoring Due to Risk of Patient Decompensation, Need for IV Antibiotics
[2017-12-24] MEDS: NORMAL SALINE 1000 ML 1,000 ML IV PRN (20:34)
[2017-12-24 21:19] LABS: ALANINE AMINOTRANSFERASE 45 U/L (9-52); ALBUMIN 2.2 g/dL (3.5-5.0); ALKALINE PHOSPHATASE 107 U/L (38-126); ANION GAP 6 (5-19); ASPARTATE AMINO TRANSFERASE 39 U/L (14-36); BILIRUBIN,DIRECT 0.3 mg/dL (0.0-0.4); BLOOD UREA NITROGEN 18 mg/dL (7-20); CARBON DIOXIDE 18 mmol/L (22-30); CHLORIDE 108 mmol/L (98-107); GLUCOSE 265 mg/dL (75-110); PHOSPHORUS 2.5 mg/dL (2.5-4.5); POTASSIUM 4.6 mmol/L (3.6-5.0); SODIUM 131.8 mmol/L (137-145)
[2017-12-24 21:54] LABS: ABSOLUTE LYMPHOCYTES (AUTO) 1.1 10^3/uL (0.5-4.7); ABSOLUTE MONOCYTES (AUTO) 0.6 10^3/uL (0.1-1.4); ABSOLUTE NEUT (AUTO) 6.3 10^3/uL (1.7-8.2); BASOPHILS % (AUTO) 0.5 % (0-2); HEMATOCRIT 24.9 % (36.0-47.0); LYMPHOCYTES % (AUTO) 13.4 % (13-45); MEAN CORPUSCULAR HEMOGLOBIN 29.7 pg (27.0-33.4); MEAN CORPUSCULAR HGB CONC 33.4 g/dL (32.0-36.0); MEAN CORPUSCULAR VOLUME 89 fl (80-97); MONOCYTES % (AUTO) 7.7 % (3-13); PLATELET COUNT 111 10^3/uL (150-450); RED BLOOD COUNT 2.79 10^6/uL (3.72-5.28); RED CELL DISTRIBUTION WIDTH 19.4 % (11.5-14.0); SEGMENTED NEUTROPHILS % (AUTO) 78.4 % (42-78); TOTAL CELLS COUNTED % (AUTO) 100 %; WHITE BLOOD COUNT 8.1 10^3/uL (4.0-10.5)
[2017-12-24 22:02] LABS: HEMOGLOBIN 8.3 g/dL (12.0-15.5)
[2017-12-24] MEDS: ATORVASTATIN CALCIUM 80 MG TABLET PO SCH (23:03)
[2017-12-24] MEDS: GABAPENTIN 300 MG CAPSULE PO SCH (23:03)
[2017-12-24] MEDS: VANCOMYCIN HCL 1,250 MG in DEXTROSE 5%-WATER 250 ML IV SCH (23:04)
[2017-12-25] MEDS: PIPERACILLIN SODIUM/TAZOBACTAM 2.25 GM in NORMAL SALINE 50 ML IV SCH ×4 (00:41→17:27)
[2017-12-25] MEDS: DILTIAZEM HCL 30 MG TABLET PO SCH ×4 (05:35→23:02)
[2017-12-25] MEDS: LANSOPRAZOLE 30 MG TAB.RAP.DR PO SCH (05:35)
[2017-12-25 07:08] LABS: ABSOLUTE LYMPHOCYTES (AUTO) 1.4 10^3/uL (0.5-4.7); ABSOLUTE MONOCYTES (AUTO) 0.6 10^3/uL (0.1-1.4); ABSOLUTE NEUT (AUTO) 4.6 10^3/uL (1.7-8.2); BASOPHILS % (AUTO) 0.4 % (0-2); EOSINOPHILS % (AUTO) 0.1 % (0-6); HEMATOCRIT 23.3 % (36.0-47.0); LYMPHOCYTES % (AUTO) 20.7 % (13-45); MEAN CORPUSCULAR HEMOGLOBIN 29.5 pg (27.0-33.4); MEAN CORPUSCULAR HGB CONC 33.2 g/dL (32.0-36.0); MEAN CORPUSCULAR VOLUME 89 fl (80-97); MONOCYTES % (AUTO) 9.7 % (3-13); PLATELET COUNT 132 10^3/uL (150-450); RED BLOOD COUNT 2.62 10^6/uL (3.72-5.28); SEGMENTED NEUTROPHILS % (AUTO) 69.1 % (42-78); TOTAL CELLS COUNTED % (AUTO) 100 %; WHITE BLOOD COUNT 6.6 10^3/uL (4.0-10.5)
[2017-12-25 07:11] LABS: HEMOGLOBIN 7.7 g/dL (12.0-15.5)
[2017-12-25 07:29] LABS: ANION GAP 6 (5-19); BLOOD UREA NITROGEN 15 mg/dL (7-20); CALCIUM 8.2 mg/dL (8.4-10.2); CARBON DIOXIDE 20 mmol/L (22-30); CHLORIDE 111 mmol/L (98-107); GLUCOSE 153 mg/dL (75-110); POTASSIUM 4.2 mmol/L (3.6-5.0); SODIUM 137.3 mmol/L (137-145)
[2017-12-25] MEDS: AZATHIOPRINE 50 MG TABLET PO SCH (10:03)
[2017-12-25] MEDS: FERROUS SULFATE 325 MG TABLET PO SCH (10:04)
[2017-12-25] MEDS: HYDROCODONE/ACETAMINOPHEN 5-325 MG TABLET PO PRN ×3 (10:04→23:02)
[2017-12-25] MEDS: TACROLIMUS ANHYDROUS 1 MG CAPSULE PO SCH ×2 (10:04→21:07)
[2017-12-25] MEDS: PREDNISONE 5 MG TABLET PO SCH (10:04)
[2017-12-25] MEDS: INSULIN GLARGINE,HUM.REC.ANLOG 300 UNIT/3 ML INSULN.PEN SUBCUT SCH ×2 (10:05→17:27)
[2017-12-25] MEDS: ENOXAPARIN SODIUM INJ 40 MG/0.4 ML DISP.SYRIN SUBCUT SCH (10:06)
[2017-12-25] MEDS: INSULIN LISPRO 100 UNIT/ML 3 ML VIAL SUBCUT PRN ×2 (12:41→22:10)
[2017-12-25] MEDS ORDERED: NORMAL SALINE 250 ML IV PRN ×2 (14:51)
[2017-12-25] MEDS ORDERED: FUROSEMIDE INJ/PF 20 MG/2 ML SDV IV PRN (14:51)
--- NOTE | 2017-12-25 15:03 | PDOC PROGRESS REPORT ---
Subjective Progress Note for:: 12/25/17 Subjective:: Patient complains of constipation Review of systems All organ systems evaluated and negative except as seen subjective All laboratories and diagnostics have been reviewed Reason For Visit: FEVER,IMMUNOSUPPRESSED Physical Exam Vital Signs: Temp Pulse Resp BP Pulse Ox 97.9 F 94 18 137/58 H 100 12/25/17 03:21 12/25/17 03:21 12/25/17 03:21 12/25/17 03:21 12/25/17 03:21 Intake & Output 12/23/17 12/24/17 12/25/17 06:59 06:59 06:59 Intake Total 1500 2200 Output Total 400 Balance 1500 1800 Weight 89.7 kg 93 kg General appearance: PRESENT: no acute distress, cooperative, obese Head exam: PRESENT: atraumatic, normocephalic Eye exam: PRESENT: conjunctiva pink, EOMI, PERRLA Ear exam: PRESENT: normal external ear exam, TM's normal bilaterally Mouth exam: PRESENT: moist, neck supple Neck exam: PRESENT: full ROM. ABSENT: JVD, lymphadenopathy, tenderness Respiratory exam: PRESENT: clear to auscultation niki Cardiovascular exam: PRESENT: RRR. ABSENT: diastolic murmur, systolic murmur Vascular exam: PRESENT: normal capillary refill GI/Abdominal exam: PRESENT: normal bowel sounds, soft. ABSENT: tenderness Extremities exam: PRESENT: full ROM. ABSENT: clubbing, joint swelling, pedal edema Musculoskeletal exam: PRESENT: ambulatory Neurological exam: PRESENT: alert, oriented to person, oriented to place, oriented to time, oriented to situation, CN II-XII grossly intact Psychiatric exam: PRESENT: appropriate affect, normal mood Skin exam: PRESENT: intact, normal color Results Laboratory Results: 12/24/17 12/24/17 12/24/17 20:40 20:40 21:46 WBC Cancelled 8.1 RBC Cancelled 2.79 L Hgb Cancelled 8.3 L D Hct Cancelled 24.9 L MCV Cancelled 89 MCH Cancelled 29.7 MCHC Cancelled 33.4 RDW Cancelled 19.4 H Plt Count Cancelled 111 L Seg Neutrophils % Cancelled 78.4 H Lymphocytes % Cancelled 13.4 Monocytes % Cancelled 7.7 Eosinophils % Cancelled 0.0 Basophils % Cancelled 0.5 Absolute Neutrophils Cancelled 6.3 Absolute Lymphocytes Cancelled 1.1 Absolute Monocytes Cancelled 0.6 Absolute Eosinophils Cancelled 0.0 Absolute Basophils Cancelled 0.0 Sodium 131.8 L Potassium 4.6 Chloride 108 H Carbon Dioxide 18 L Anion Gap 6 BUN 18 Creatinine 1.54 H Est GFR ( Amer) 42 L Est GFR (Non-Af Amer) 35 L Glucose 265 H Calcium 8.0 L Phosphorus 2.5 Magnesium 1.6 Total Bilirubin 1.0 AST 39 H ALT 45 Alkaline Phosphatase 107 Total Protein 4.0 L Albumin 2.2 L Impressions: Chest X-Ray 12/23/17 00:00 IMPRESSION: Nothing acute. Assessment & Plan - Diagnosis (1) UTI (urinary tract infection) Qualifiers: Urinary tract infection type: acute cystitis Hematuria presence: with hematuria Qualified Code(s): N30.01 - Acute cystitis with hematuria Is this a current diagnosis for this admission?: Yes Plan: Urine culture growing E. coli and a second gram-negative bacilli. Will continue with current management (2) Bacteremia Is this a current diagnosis for this admission?: Yes Plan: One blood culture bottle is positive so there is still a possibility of being a contaminant. Will await for result. Will repeat blood culture (3) Anemia Qualifiers: Anemia type: other cause Is this a current diagnosis for this admission?: Yes Plan: Acute decrease relates to chemotherapy. 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 Qualified Code(s): E11.8 - Type 2 diabetes mellitus with unspecified complications; Z79.4 - retirement (current) use of insulin; 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; 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 of insulin; Z79.4 - retirement (current) use of insulin Is this a current diagnosis for this admission?: Yes Plan: Continue Lantus to 28 units twice a day and will continue sliding scale (6) Elevated serum creatinine Is this a current diagnosis for this admission?: Yes Plan: To trend - Time Time Spent with patient: 15-24 minutes Medications reviewed and adjusted accordingly: Yes Anticipated discharge: Home Within: within 48 hours - Inpatient Certification Based on my medical assessment, after consideration of the patient's comorbidities, presenting symptoms, or acuity I expect that the services needed warrant INPATIENT care.: Yes I certify that my determination is in accordance with my understanding of Medicare's requirements for reasonable and necessary INPATIENT services [42 CFR 412.3e].: Yes Medical Necessity: Need for IV Antibiotics - Blood transfusion
[2017-12-25] MEDS: LACTULOSE SYRUP 20 GM/30 ML UDCUP PO SCH (17:28)
[2017-12-25] MEDS: POLYETHYLENE GLYCOL 3350 POWDER 17 GM/1 PACKET PO SCH (17:28)
[2017-12-25] MEDS: GABAPENTIN 300 MG CAPSULE PO SCH (21:07)
[2017-12-25] MEDS: ATORVASTATIN CALCIUM 80 MG TABLET PO SCH (21:07)
[2017-12-25] MEDS: VANCOMYCIN HCL 1,250 MG in DEXTROSE 5%-WATER 250 ML IV SCH (21:07)
[2017-12-26] MEDS: PIPERACILLIN SODIUM/TAZOBACTAM 2.25 GM in NORMAL SALINE 50 ML IV SCH ×2 (02:56→08:23)
[2017-12-26] MEDS: DILTIAZEM HCL 30 MG TABLET PO SCH ×2 (05:12→12:32)
[2017-12-26] MEDS: NORMAL SALINE 1000 ML 1,000 ML IV PRN (05:13)
[2017-12-26] MEDS: LANSOPRAZOLE 30 MG TAB.RAP.DR PO SCH (05:13)
[2017-12-26 05:35] LABS: ABSOLUTE LYMPHOCYTES (AUTO) 1.1 10^3/uL (0.5-4.7); ABSOLUTE MONOCYTES (AUTO) 0.6 10^3/uL (0.1-1.4); ABSOLUTE NEUT (AUTO) 5.3 10^3/uL (1.7-8.2); BASOPHILS % (AUTO) 0.6 % (0-2); EOSINOPHILS % (AUTO) 0.1 % (0-6); HEMOGLOBIN 8.7 g/dL (12.0-15.5); LYMPHOCYTES % (AUTO) 16.1 % (13-45); MEAN CORPUSCULAR HEMOGLOBIN 29.4 pg (27.0-33.4); MEAN CORPUSCULAR HGB CONC 33.3 g/dL (32.0-36.0); MEAN CORPUSCULAR VOLUME 88 fl (80-97); MONOCYTES % (AUTO) 8.2 % (3-13); PLATELET COUNT 187 10^3/uL (150-450); RED BLOOD COUNT 2.95 10^6/uL (3.72-5.28); RED CELL DISTRIBUTION WIDTH 18.1 % (11.5-14.0); TOTAL CELLS COUNTED % (AUTO) 100 %; WHITE BLOOD COUNT 7.1 10^3/uL (4.0-10.5)
[2017-12-26] MEDS: FERROUS SULFATE 325 MG TABLET PO SCH (10:51)
[2017-12-26] MEDS: ENOXAPARIN SODIUM INJ 40 MG/0.4 ML DISP.SYRIN SUBCUT SCH (10:51)
[2017-12-26] MEDS: INSULIN GLARGINE,HUM.REC.ANLOG 300 UNIT/3 ML INSULN.PEN SUBCUT SCH ×2 (10:51→18:35)
[2017-12-26] MEDS: AZATHIOPRINE 50 MG TABLET PO SCH (10:51)
[2017-12-26] MEDS: PREDNISONE 5 MG TABLET PO SCH (10:51)
[2017-12-26] MEDS: TACROLIMUS ANHYDROUS 1 MG CAPSULE PO SCH ×2 (10:51→21:14)
[2017-12-26] MEDS ORDERED: ONDANSETRON HCL INJ/PF 4 MG/2 ML SDV IV PRN (11:30)
--- NOTE | 2017-12-26 12:51 | PDOC PROGRESS REPORT ---
Subjective Progress Note for:: 12/26/17 Subjective:: Patient complains of shortness of breath since she came in otherwise feels better. Review of systems All organ systems evaluated and negative except as seen subjective All laboratories and diagnostics have been reviewed Reason For Visit: FEVER,IMMUNOSUPPRESSED Physical Exam Vital Signs: Temp Pulse Resp BP Pulse Ox 98.0 F 89 16 135/65 H 100 12/26/17 01:05 12/26/17 02:00 12/26/17 01:05 12/26/17 01:05 12/26/17 01:05 Intake & Output 12/25/17 12/26/17 12/27/17 06:59 06:59 06:59 Intake Total 2200 2550 Output Total 400 400 Balance 1800 2150 Weight 93 kg 94.5 kg General appearance: PRESENT: no acute distress, cooperative, obese Head exam: PRESENT: atraumatic, normocephalic Eye exam: PRESENT: conjunctiva pink, EOMI, PERRLA Ear exam: PRESENT: normal external ear exam Mouth exam: PRESENT: moist Neck exam: PRESENT: full ROM. ABSENT: JVD, tenderness Respiratory exam: PRESENT: clear to auscultation niki Cardiovascular exam: PRESENT: RRR. ABSENT: diastolic murmur, systolic murmur Vascular exam: PRESENT: normal capillary refill GI/Abdominal exam: PRESENT: normal bowel sounds, soft. ABSENT: tenderness Extremities exam: ABSENT: clubbing, joint swelling, pedal edema Musculoskeletal exam: PRESENT: ambulatory Neurological exam: PRESENT: alert, awake, oriented to person, oriented to place , oriented to time, oriented to situation, CN II-XII grossly intact Psychiatric exam: PRESENT: appropriate affect, normal mood Skin exam: PRESENT: intact, pallor Results Laboratory Results: 12/26/17 05:00 12/25/17 05:25 12/25/17 12/25/17 12/25/17 05:25 05:25 15:40 WBC 6.6 RBC 2.62 L Hgb 7.7 L Hct 23.3 L MCV 89 MCH 29.5 MCHC 33.2 RDW 19.0 H Plt Count 132 L Seg Neutrophils % 69.1 Lymphocytes % 20.7 Monocytes % 9.7 Eosinophils % 0.1 Basophils % 0.4 Absolute Neutrophils 4.6 Absolute Lymphocytes 1.4 Absolute Monocytes 0.6 Absolute Eosinophils 0.0 Absolute Basophils 0.0 Sodium 137.3 Potassium 4.2 Chloride 111 H Carbon Dioxide 20 L Anion Gap 6 BUN 15 Creatinine 1.34 H Est GFR ( Amer) 49 L Est GFR (Non-Af Amer) 41 L Glucose 153 H Calcium 8.2 L Magnesium 1.7 Blood Type A POSITIVE Antibody Screen NEGATIVE 12/26/17 05:00 WBC 7.1 RBC 2.95 L Hgb 8.7 L Hct 26.0 L MCV 88 MCH 29.4 MCHC 33.3 RDW 18.1 H Plt Count 187 Seg Neutrophils % 75.0 Lymphocytes % 16.1 Monocytes % 8.2 Eosinophils % 0.1 Basophils % 0.6 Absolute Neutrophils 5.3 Absolute Lymphocytes 1.1 Absolute Monocytes 0.6 Absolute Eosinophils 0.0 Absolute Basophils 0.0 Sodium Potassium Chloride Carbon Dioxide Anion Gap BUN Creatinine Est GFR ( Amer) Est GFR (Non-Af Amer) Glucose Calcium Magnesium Blood Type Antibody Screen Impressions: Chest X-Ray 12/23/17 00:00 IMPRESSION: Nothing acute. Assessment & Plan - Diagnosis (1) UTI (urinary tract infection) Qualifiers: Urinary tract infection type: acute cystitis Hematuria presence: with hematuria Qualified Code(s): N30.01 - Acute cystitis with hematuria Is this a current diagnosis for this admission?: Yes Plan: Urine culture growing E. coli and Klebsiella. To discontinue Zosyn and change to Ceftin (2) Bacteremia Is this a current diagnosis for this admission?: No Plan: Repeat blood cultures final report still pending but initial blood culture resulting to me due to contaminant (3) Anemia Qualifiers: Anemia type: other cause Is this a current diagnosis for this admission?: Yes Plan: Acute decrease relates to chemotherapy. 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 Qualified Code(s): E11.8 - Type 2 diabetes mellitus with unspecified complications; Z79.4 - intermodal dispatcher (current) use of insulin; Z79.4 - intermodal dispatcher ( current) use of insulin; Z79.4 - [facility] (current) use of insulin; Z79.4 - [facility] (current) use of insulin Is this a current diagnosis for this admission?: Yes Plan: Continue Lantus to 28 units twice a day and will continue sliding scale (6) CKD (chronic kidney disease) stage 3, GFR 30-59 ml/min Is this a current diagnosis for this admission?: Yes Plan: Stable (7) Dyspnea Qualifiers: Dyspnea type: shortness of breath Qualified Code(s): R06.02 - Shortness of breath; R06.00 - Dyspnea, unspecified; R06.01 - Orthopnea Is this a current diagnosis for this admission?: Yes Plan: Order VQ scan - Time Time Spent with patient: 15-24 minutes Anticipated discharge: Home Within: within 48 hours - Inpatient Certification Based on my medical assessment, after consideration of the patient's comorbidities, presenting symptoms, or acuity I expect that the services needed warrant INPATIENT care.: Yes I certify that my determination is in accordance with my understanding of Medicare's requirements for reasonable and necessary INPATIENT services [42 CFR 412.3e].: Yes Medical Necessity: Need Close Monitoring Due to Risk of Patient Decompensation
[2017-12-26] MEDS ORDERED: DILTIAZEM HCL 180 MG CAPSULE.CR PO ONE (13:30)
--- NOTE | 2017-12-26 13:36 | RADIOLOGY REPORT (SQ) ---
EXAM DESCRIPTION: CHEST PA/LAT COMPLETED DATE/TIME: 12/26/2017 1:27 pm REASON FOR STUDY: DYSPNEA (ALSO FOR NM VQ SCAN) COMPARISON: 12/23/2017. EXAM PARAMETERS: NUMBER OF VIEWS: two views TECHNIQUE: Digital Frontal and Lateral radiographic views of the chest acquired. RADIATION DOSE: NA LIMITATIONS: none FINDINGS: LUNGS AND PLEURA: No opacities, masses or pneumothorax. No pleural effusion. MEDIASTINUM AND HILAR STRUCTURES: No masses or contour abnormalities. HEART AND VASCULAR STRUCTURES: Heart normal size. No evidence for failure. BONES: No acute findings. HARDWARE: Vascular access port. OTHER: No other significant finding. IMPRESSION: NO SIGNIFICANT RADIOGRAPHIC FINDING IN THE CHEST. TECHNICAL DOCUMENTATION: JOB ID: [id number] [employer]- All Rights Reserved
--- NOTE | 2017-12-26 13:38 | RADIOLOGY REPORT (SQ) ---
EXAM DESCRIPTION: NM LUNG PERFUSION SCAN COMPLETED DATE/TIME: 12/26/2017 1:25 pm REASON FOR STUDY: dyspnea COMPARISON: Concurrent chest x-ray. RADIONUCLIDE AND DOSE: 5.13 millicuries TC-99m MAA The route of agent administration: Intravenous TECHNIQUE: Eight views of the lungs acquired following injection of MAA. LIMITATIONS: None. FINDINGS: PERFUSION: Perfusion images with normal homogenous activity and no wedge-shaped or segment al defects. OTHER: No other significant finding. IMPRESSION: NORMAL PERFUSION LUNG SCAN. TECHNICAL DOCUMENTATION: JOB ID: [id number] [employer]- All Rights Reserved
[2017-12-26] MEDS: POLYETHYLENE GLYCOL 3350 POWDER 17 GM/1 PACKET PO SCH (18:22)
[2017-12-26] MEDS: LACTULOSE SYRUP 20 GM/30 ML UDCUP PO SCH (18:33)
[2017-12-26] MEDS: CEFUROXIME 500 MG TABLET PO SCH (21:13)
[2017-12-26] MEDS: GABAPENTIN 300 MG CAPSULE PO SCH (21:14)
[2017-12-26] MEDS: ATORVASTATIN CALCIUM 80 MG TABLET PO SCH (21:14)
[2017-12-26] MEDS: INSULIN LISPRO 100 UNIT/ML 3 ML VIAL SUBCUT PRN (22:57)
[2017-12-27] MEDS: LANSOPRAZOLE 30 MG TAB.RAP.DR PO SCH (05:16)
[2017-12-27 08:23] LABS: ABSOLUTE LYMPHOCYTES (AUTO) 1.1 10^3/uL (0.5-4.7); ABSOLUTE MONOCYTES (AUTO) 0.8 10^3/uL (0.1-1.4); ABSOLUTE NEUT (AUTO) 6.6 10^3/uL (1.7-8.2); BASOPHILS % (AUTO) 0.3 % (0-2); EOSINOPHILS % (AUTO) 0.1 % (0-6); HEMATOCRIT 24.9 % (36.0-47.0); HEMOGLOBIN 8.4 g/dL (12.0-15.5); LYMPHOCYTES % (AUTO) 12.9 % (13-45); MEAN CORPUSCULAR HEMOGLOBIN 29.6 pg (27.0-33.4); MEAN CORPUSCULAR HGB CONC 33.5 g/dL (32.0-36.0); MEAN CORPUSCULAR VOLUME 88 fl (80-97); MONOCYTES % (AUTO) 9.7 % (3-13); PLATELET COUNT 245 10^3/uL (150-450); RED BLOOD COUNT 2.83 10^6/uL (3.72-5.28); RED CELL DISTRIBUTION WIDTH 18.2 % (11.5-14.0); TOTAL CELLS COUNTED % (AUTO) 100 %; WHITE BLOOD COUNT 8.6 10^3/uL (4.0-10.5)
[2017-12-27 08:38] LABS: ANION GAP 5 (5-19); BLOOD UREA NITROGEN 13 mg/dL (7-20); CALCIUM 9.1 mg/dL (8.4-10.2); CARBON DIOXIDE 21 mmol/L (22-30); CHLORIDE 113 mmol/L (98-107); GLUCOSE 98 mg/dL (75-110); POTASSIUM 4.2 mmol/L (3.6-5.0); SODIUM 138.6 mmol/L (137-145)
[2017-12-27] MEDS: INSULIN GLARGINE,HUM.REC.ANLOG 300 UNIT/3 ML INSULN.PEN SUBCUT SCH ×2 (09:31→17:16)
[2017-12-27] MEDS: ENOXAPARIN SODIUM INJ 40 MG/0.4 ML DISP.SYRIN SUBCUT SCH (09:32)
[2017-12-27] MEDS: TACROLIMUS ANHYDROUS 1 MG CAPSULE PO SCH ×2 (09:32→21:49)
[2017-12-27] MEDS: FERROUS SULFATE 325 MG TABLET PO SCH (09:34)
[2017-12-27] MEDS: CEFUROXIME 500 MG TABLET PO SCH (09:34)
[2017-12-27] MEDS: PREDNISONE 5 MG TABLET PO SCH (09:35)
[2017-12-27] MEDS: AZATHIOPRINE 50 MG TABLET PO SCH (09:35)
[2017-12-27] MEDS: INSULIN LISPRO 100 UNIT/ML 3 ML VIAL SUBCUT PRN ×3 (11:56→22:26)
[2017-12-27] MEDS: CEFTRIAXONE 2 GM/D5W RTU 2 GM/50 ML RTUPB IV SCH (14:21)
[2017-12-27] MEDS: LACTOBACILLUS ACIDOPHILUS 250 MG TAB PO SCH (17:16)
--- NOTE | 2017-12-27 18:54 | PDOC PROGRESS REPORT ---
Subjective Progress Note for:: 12/27/17 Subjective:: Relates that is having diarrhea since last night. Shortness of breath is getting better. Nurse reports that patient is not requiring oxygen supplementation Review of systems All organ systems evaluated and negative except as seen subjective All laboratories and diagnostics have been reviewed Reason For Visit: FEVER,IMMUNOSUPPRESSED Physical Exam Vital Signs: Temp Pulse Resp BP Pulse Ox 98.5 F 88 20 114/52 L 100 12/27/17 03:34 12/27/17 07:00 12/27/17 03:34 12/27/17 03:34 12/27/17 03:34 Intake & Output 12/26/17 12/27/17 12/28/17 06:59 06:59 06:59 Intake Total 2550 1108 Output Total 400 Balance 2150 1108 Weight 94.5 kg 93.9 kg General appearance: PRESENT: no acute distress, cooperative, obese Head exam: PRESENT: atraumatic, normocephalic Eye exam: PRESENT: EOMI, PERRLA Ear exam: PRESENT: normal external ear exam, TM's normal bilaterally Neck exam: PRESENT: full ROM. ABSENT: JVD, lymphadenopathy, tenderness Respiratory exam: PRESENT: clear to auscultation niki Cardiovascular exam: PRESENT: RRR. ABSENT: diastolic murmur, systolic murmur Vascular exam: PRESENT: normal capillary refill GI/Abdominal exam: PRESENT: normal bowel sounds, soft. ABSENT: tenderness Extremities exam: PRESENT: full ROM. ABSENT: joint swelling, pedal edema Musculoskeletal exam: PRESENT: ambulatory, full ROM Neurological exam: PRESENT: alert, awake, oriented to person, oriented to place , oriented to time, oriented to situation, CN II-XII grossly intact Psychiatric exam: PRESENT: appropriate affect, normal mood Results Laboratory Results: 12/26/17 05:00 12/26/17 21:45 12/26/17 21:45 Creatinine 1.36 H Est GFR ( Amer) 48 L Est GFR (Non-Af Amer) 40 L 12/23/17 16:55 Clean Catch Midstream Urine Culture - Final Escherichia Coli Klebsiella Pneumoniae 12/26/17 11:29 NT-Pro-B Natriuret Pep 513 Impressions: Chest X-Ray 12/26/17 00:00 IMPRESSION: NO SIGNIFICANT RADIOGRAPHIC FINDING IN THE CHEST. Lung Scan-VQ NM 12/26/17 00:00 IMPRESSION: NORMAL PERFUSION LUNG SCAN. Assessment & Plan - Diagnosis (1) UTI (urinary tract infection) Qualifiers: Urinary tract infection type: acute cystitis Hematuria presence: with hematuria Qualified Code(s): N30.01 - Acute cystitis with hematuria Is this a current diagnosis for this admission?: Yes Plan: Urine culture growing E. coli and Klebsiella. Since growing gram-positive cocci in blood will place on Rocephin IV which will cover for both gram-negative bacilli (2) Bacteremia Is this a current diagnosis for this admission?: No Plan: Repeat blood cultures are negative. However grew Staphylococcus auricularis. To order echocardiogram and to place patient on Rocephin IV She will need a full course of 14 days (3) Anemia Qualifiers: Anemia type: other cause Is this a current diagnosis for this admission?: Yes Plan: Acute decrease relates to chemotherapy. Improved after transfusion of 1 unit of packed red blood cell (4) Breast cancer Qualifiers: Breast location: unspecified site of breast Laterality: unspecified laterality Is this a current diagnosis for this admission?: Yes Plan: Patient made aware that for now likely she will not be able to get the next course of chemotherapy due to infection (5) Diabetes mellitus Qualifiers: Diabetes mellitus type: type 2 Diabetes mellitus complication status: with unspecified complications Diabetes mellitus chcf insulin use: with chcf use Qualified Code(s): E11.8 - Type 2 diabetes mellitus with unspecified complications; Z79.4 - halfway (current) use of insulin; Z79.4 - petroleum terminal plant operator ( current) use of insulin; Z79.4 - petroleum terminal plant operator (current) use of insulin; Z79.4 - halfway (current) use of insulin Is this a current diagnosis for this admission?: Yes Plan: Continue Lantus to 28 units twice a day and will continue sliding scale (6) CKD (chronic kidney disease) stage 3, GFR 30-59 ml/min Is this a current diagnosis for this admission?: Yes Plan: Stable (7) Dyspnea Qualifiers: Dyspnea type: shortness of breath Qualified Code(s): R06.02 - Shortness of breath; R06.00 - Dyspnea, unspecified; R06.01 - Orthopnea Is this a current diagnosis for this admission?: Yes Plan: Resolved. (8) Acute respiratory failure Qualifiers: Respiratory failure complication: hypoxia Qualified Code(s): J96.01 - Acute respiratory failure with hypoxia Is this a current diagnosis for this admission?: Yes Plan: Resolved. Order BNP in a.m. (9) Diarrhea Qualifiers: Diarrhea type: unspecified type Qualified Code(s): R19.7 - Diarrhea, unspecified Is this a current diagnosis for this admission?: Yes Plan: Will discontinue MiraLAX and lactulose since she might be going from constipated to having diarrhea. Add lactobacillus - Time Time Spent with patient: 15-24 minutes Medications reviewed and adjusted accordingly: Yes Anticipated discharge: Home Within: within 72 hours - Inpatient Certification Based on my medical assessment, after consideration of the patient's comorbidities, presenting symptoms, or acuity I expect that the services needed warrant INPATIENT care.: Yes I certify that my determination is in accordance with my understanding of Medicare's requirements for reasonable and necessary INPATIENT services [42 CFR 412.3e].: Yes Medical Necessity: Need for IV Antibiotics
[2017-12-27] MEDS: HYDROCODONE/ACETAMINOPHEN 5-325 MG TABLET PO PRN (18:59)
[2017-12-27] MEDS: ATORVASTATIN CALCIUM 80 MG TABLET PO SCH (21:48)
[2017-12-27] MEDS: GABAPENTIN 300 MG CAPSULE PO SCH (21:49)
[2017-12-28] MEDS: LANSOPRAZOLE 30 MG TAB.RAP.DR PO SCH (05:32)
[2017-12-28] MEDS: PREDNISONE 5 MG TABLET PO SCH (10:08)
[2017-12-28] MEDS: LACTOBACILLUS ACIDOPHILUS 250 MG TAB PO SCH ×2 (10:09→18:01)
[2017-12-28] MEDS: ENOXAPARIN SODIUM INJ 40 MG/0.4 ML DISP.SYRIN SUBCUT SCH (10:09)
[2017-12-28] MEDS: FERROUS SULFATE 325 MG TABLET PO SCH (10:09)
[2017-12-28] MEDS: TACROLIMUS ANHYDROUS 1 MG CAPSULE PO SCH ×2 (10:09→22:03)
[2017-12-28] MEDS: INSULIN GLARGINE,HUM.REC.ANLOG 300 UNIT/3 ML INSULN.PEN SUBCUT SCH ×2 (10:09→18:02)
[2017-12-28] MEDS: HYDROCODONE/ACETAMINOPHEN 5-325 MG TABLET PO PRN ×2 (10:10→18:01)
[2017-12-28] MEDS: AZATHIOPRINE 50 MG TABLET PO SCH (10:14)
--- NOTE | 2017-12-28 13:06 | PDOC PROGRESS REPORT ---
Subjective Progress Note for:: 12/28/17 Subjective:: Patient refers that is not having shortness of breath and the diarrhea is gone Review of systems All organ systems evaluated and negative except as seen subjective All laboratories and diagnostics have been reviewed Reason For Visit: FEVER,IMMUNOSUPPRESSED Physical Exam Vital Signs: Temp Pulse Resp BP Pulse Ox 98.4 F 102 H 20 134/68 H 100 12/28/17 04:09 12/28/17 04:09 12/28/17 04:09 12/28/17 04:09 12/28/17 04:09 Intake & Output 12/27/17 12/28/17 12/29/17 06:59 06:59 06:59 Intake Total 1108 1447 Balance 1108 1447 Weight 93.9 kg 92.4 kg General appearance: PRESENT: no acute distress, cooperative, obese Head exam: PRESENT: atraumatic, normocephalic Eye exam: PRESENT: EOMI, PERRLA Ear exam: PRESENT: normal external ear exam Mouth exam: PRESENT: moist Neck exam: PRESENT: full ROM. ABSENT: JVD, lymphadenopathy, tenderness Respiratory exam: PRESENT: clear to auscultation niki Cardiovascular exam: PRESENT: RRR. ABSENT: diastolic murmur, systolic murmur Vascular exam: PRESENT: normal capillary refill GI/Abdominal exam: PRESENT: normal bowel sounds, soft. ABSENT: tenderness Extremities exam: PRESENT: full ROM. ABSENT: joint swelling, pedal edema Musculoskeletal exam: PRESENT: ambulatory. ABSENT: full ROM Neurological exam: PRESENT: alert, awake, oriented to person, oriented to place , oriented to time, oriented to situation, CN II-XII grossly intact Psychiatric exam: PRESENT: appropriate affect, normal mood Skin exam: PRESENT: erythema, normal color Results Laboratory Results: 12/27/17 08:04 12/27/17 08:04 12/27/17 12/27/17 08:04 08:04 WBC 8.6 RBC 2.83 L Hgb 8.4 L Hct 24.9 L MCV 88 MCH 29.6 MCHC 33.5 RDW 18.2 H Plt Count 245 Seg Neutrophils % 77.0 Lymphocytes % 12.9 L Monocytes % 9.7 Eosinophils % 0.1 Basophils % 0.3 Absolute Neutrophils 6.6 Absolute Lymphocytes 1.1 Absolute Monocytes 0.8 Absolute Eosinophils 0.0 Absolute Basophils 0.0 Sodium 138.6 Potassium 4.2 Chloride 113 H Carbon Dioxide 21 L Anion Gap 5 BUN 13 Creatinine 1.04 Est GFR ( Amer) > 60 Est GFR (Non-Af Amer) 54 L Glucose 98 Calcium 9.1 12/26/17 12/28/17 11:29 06:00 NT-Pro-B Natriuret Pep 513 1160 H Impressions: Chest X-Ray 12/26/17 00:00 IMPRESSION: NO SIGNIFICANT RADIOGRAPHIC FINDING IN THE CHEST. Lung Scan-VQ NM 12/26/17 00:00 IMPRESSION: NORMAL PERFUSION LUNG SCAN. Assessment & Plan - Diagnosis (1) UTI (urinary tract infection) Qualifiers: Urinary tract infection type: acute cystitis Hematuria presence: with hematuria Qualified Code(s): N30.01 - Acute cystitis with hematuria Is this a current diagnosis for this admission?: Yes Plan: Urine culture growing E. coli and Klebsiella. Continue current treatment (2) Bacteremia Is this a current diagnosis for this admission?: No Plan: Repeat blood cultures are negative. Initial blood culture drawn fro her port grew Staphylococcus auricularis. Ordered echocardiogram and to continue Rocephin IV. Will try to contact ID in [facility]. (3) Anemia Qualifiers: Anemia type: other cause Is this a current diagnosis for this admission?: Yes Plan: Acute decrease relates to chemotherapy. Improved after transfusion of 1 unit of packed red blood cell (4) Breast cancer Qualifiers: Breast location: unspecified site of breast Laterality: unspecified laterality Is this a current diagnosis for this admission?: Yes Plan: Patient made aware that for now likely she will not be able to get the next course of chemotherapy due to infection (5) Diabetes mellitus Qualifiers: Diabetes mellitus type: type 2 Diabetes mellitus complication status: with unspecified complications Diabetes mellitus fci insulin use: with fci use Qualified Code(s): E11.8 - Type 2 diabetes mellitus with unspecified complications; Z79.4 - long term care social worker (current) use of insulin; Z79.4 - jail ( current) use of insulin; Z79.4 - long term care social worker (current) use of insulin; Z79.4 - jail (current) use of insulin Is this a current diagnosis for this admission?: Yes Plan: Continue Lantus to 28 units twice a day and will continue sliding scale (6) CKD (chronic kidney disease) stage 3, GFR 30-59 ml/min Is this a current diagnosis for this admission?: Yes Plan: Stable (7) Dyspnea Qualifiers: Dyspnea type: shortness of breath Qualified Code(s): R06.02 - Shortness of breath; R06.00 - Dyspnea, unspecified; R06.01 - Orthopnea Is this a current diagnosis for this admission?: Yes Plan: Resolved. (8) Acute respiratory failure Qualifiers: Respiratory failure complication: hypoxia Qualified Code(s): J96.01 - Acute respiratory failure with hypoxia Is this a current diagnosis for this admission?: Yes Plan: Resolved. BNP elevated and may relate to fluid overload. Echocardiogram has been requested. Will start Lasix IV (9) Diarrhea Qualifiers: Diarrhea type: unspecified type Qualified Code(s): R19.7 - Diarrhea, unspecified Is this a current diagnosis for this admission?: Yes Plan: Resolved - Time Time Spent with patient: 15-24 minutes Medications reviewed and adjusted accordingly: Yes Anticipated discharge: Home Within: within 72 hours - Inpatient Certification Based on my medical assessment, after consideration of the patient's comorbidities, presenting symptoms, or acuity I expect that the services needed warrant INPATIENT care.: Yes I certify that my determination is in accordance with my understanding of Medicare's requirements for reasonable and necessary INPATIENT services [42 CFR 412.3e].: Yes Medical Necessity: Need for IV Antibiotics - IV lasix
[2017-12-28] MEDS ORDERED: FUROSEMIDE INJ/PF 20 MG/2 ML SDV IV ONE (14:30)
[2017-12-28] MEDS: CEFTRIAXONE 2 GM/D5W RTU 2 GM/50 ML RTUPB IV SCH (15:04)
[2017-12-28] MEDS: INSULIN LISPRO 100 UNIT/ML 3 ML VIAL SUBCUT PRN ×2 (15:05→18:02)
[2017-12-28] MEDS: GABAPENTIN 300 MG CAPSULE PO SCH (22:03)
[2017-12-28] MEDS: ATORVASTATIN CALCIUM 80 MG TABLET PO SCH (22:03)
[2017-12-28] MEDS: FUROSEMIDE INJ/PF 20 MG/2 ML SDV IV SCH (22:04)
[2017-12-29] MEDS: HYDROCODONE/ACETAMINOPHEN 5-325 MG TABLET PO PRN ×2 (05:28→19:50)
[2017-12-29] MEDS: LANSOPRAZOLE 30 MG TAB.RAP.DR PO SCH (05:28)
[2017-12-29 06:00] LABS: HEMATOCRIT 26.1 % (36.0-47.0); HEMOGLOBIN 8.8 g/dL (12.0-15.5); MEAN CORPUSCULAR HEMOGLOBIN 29.3 pg (27.0-33.4); MEAN CORPUSCULAR HGB CONC 33.7 g/dL (32.0-36.0); MEAN CORPUSCULAR VOLUME 87 fl (80-97); PLATELET COUNT 341 10^3/uL (150-450); RED CELL DISTRIBUTION WIDTH 18.3 % (11.5-14.0); WHITE BLOOD COUNT 11.8 10^3/uL (4.0-10.5)
[2017-12-29 06:28] LABS: ABSOLUTE LYMPHOCYTES# (MANUAL) 3.1 10^3/uL (0.5-4.7); ABSOLUTE MONOCYTES # (MANUAL) 1.1 10^3/uL (0.1-1.4); ABSOLUTE NEUTROPHILS# (MANUAL) 7.7 10^3/uL (1.7-8.2); BAND NEUTROPHILS % (MANUAL) 1 % (3-5); BASOPHILS % (MANUAL) 0 % (0-2); EOSINOPHILS % (MANUAL) 0 % (0-6); LYMPHOCYTES % (MANUAL) 26 % (13-45); MONOCYTES % (MANUAL) 9 % (3-13); SEGMENTED NEUTROPHILS % (MAN) 64 % (42-78); TOTAL CELLS COUNTED 100
[2017-12-29 06:29] LABS: ANION GAP 6 (5-19); BLOOD UREA NITROGEN 14 mg/dL (7-20); CALCIUM 9.2 mg/dL (8.4-10.2); CARBON DIOXIDE 24 mmol/L (22-30); CHLORIDE 110 mmol/L (98-107); GLUCOSE 59 mg/dL (75-110); HYPERSEGMENTED NEUTROPHILS PRESENT; PLATELET CLUMPS PRESENT; PLATELET COMMENT ADEQUATE; POTASSIUM 3.7 mmol/L (3.6-5.0); SODIUM 139.9 mmol/L (137-145)
[2017-12-29 06:32] LABS: ANISOCYTOSIS 1+; BURR CELLS SLIGHT; HYPOCHROMASIA SLIGHT; OVALOCYTES SLIGHT; POIKILOCYTOSIS SLIGHT; POLYCHROMASIA 1+
[2017-12-29] MEDS ORDERED: MAGNESIUM SULFATE/D5W 1 GM/100 ML RTUPB IV ONE (07:15)
[2017-12-29] MEDS ORDERED: MAGNESIUM SULFATE 4 GM/100 ML RTUPB IV ONE (07:20)
[2017-12-29] MEDS: INSULIN GLARGINE,HUM.REC.ANLOG 300 UNIT/3 ML INSULN.PEN SUBCUT SCH ×2 (09:49→18:13)
[2017-12-29] MEDS ORDERED: MAGNESIUM SULFATE 4 GM/D5W 100 ML IV ONE ×2 (10:00)
[2017-12-29] MEDS: PREDNISONE 5 MG TABLET PO SCH (10:24)
[2017-12-29] MEDS: TACROLIMUS ANHYDROUS 1 MG CAPSULE PO SCH ×2 (10:24→21:33)
[2017-12-29] MEDS: AZATHIOPRINE 50 MG TABLET PO SCH (10:24)
[2017-12-29] MEDS: LACTOBACILLUS ACIDOPHILUS 250 MG TAB PO SCH ×2 (10:24→18:13)
[2017-12-29] MEDS: FERROUS SULFATE 325 MG TABLET PO SCH (10:25)
[2017-12-29] MEDS: FUROSEMIDE INJ/PF 20 MG/2 ML SDV IV SCH ×2 (10:25→21:31)
[2017-12-29] MEDS: ENOXAPARIN SODIUM INJ 40 MG/0.4 ML DISP.SYRIN SUBCUT SCH (10:25)
--- NOTE | 2017-12-29 11:41 | PDOC PROGRESS REPORT ---
Subjective Progress Note for:: 12/29/17 Subjective:: No complaints Review of systems All organ systems evaluated and negative except as seen subjective All laboratories and diagnostics have been reviewed Reason For Visit: FEVER,IMMUNOSUPPRESSED Physical Exam Vital Signs: Temp Pulse Resp BP Pulse Ox 98.3 F 112 H 18 135/61 H 96 12/29/17 05:27 12/29/17 05:27 12/29/17 05:27 12/29/17 05:27 12/29/17 05:27 Intake & Output 12/28/17 12/29/17 12/30/17 06:59 06:59 06:59 Intake Total 1447 2076 Balance 1442076 Weight 92.4 kg 89.8 kg General appearance: PRESENT: no acute distress, cooperative, obese Head exam: PRESENT: atraumatic, normocephalic Eye exam: PRESENT: EOMI, PERRLA Ear exam: PRESENT: normal external ear exam Mouth exam: PRESENT: moist Neck exam: PRESENT: full ROM. ABSENT: JVD, lymphadenopathy Respiratory exam: PRESENT: clear to auscultation niki. ABSENT: unlabored Cardiovascular exam: PRESENT: RRR. ABSENT: diastolic murmur, systolic murmur Vascular exam: PRESENT: normal capillary refill GI/Abdominal exam: PRESENT: normal bowel sounds, soft. ABSENT: tenderness Extremities exam: PRESENT: full ROM. ABSENT: pedal edema Musculoskeletal exam: PRESENT: ambulatory Neurological exam: PRESENT: alert, awake, oriented to person, oriented to place , oriented to time, oriented to situation, CN II-XII grossly intact Psychiatric exam: PRESENT: appropriate affect, normal mood Skin exam: PRESENT: intact, normal color Results Laboratory Results: 12/29/17 05:30 12/29/17 05:30 12/29/17 12/29/17 05:30 05:30 WBC 11.8 H RBC 3.00 L Hgb 8.8 L Hct 26.1 L MCV 87 MCH 29.3 MCHC 33.7 RDW 18.3 H Plt Count 341 Seg Neutrophils % Not Reportable Lymphocytes % Not Reportable Monocytes % Not Reportable Eosinophils % Not Reportable Basophils % Not Reportable Absolute Neutrophils Not Reportable Absolute Lymphocytes Not Reportable Absolute Monocytes Not Reportable Absolute Eosinophils Not Reportable Absolute Basophils Not Reportable Sodium 139.9 Potassium 3.7 Chloride 110 H Carbon Dioxide 24 Anion Gap 6 BUN 14 Creatinine 1.19 Est GFR ( Amer) 56 L Est GFR (Non-Af Amer) 47 L Glucose 59 L Calcium 9.2 Magnesium 1.1 L* 12/23/17 18:25 Blood Blood Culture - Final NO GROWTH IN 5 DAYS 12/26/17 12/28/17 11:29 06:00 NT-Pro-B Natriuret Pep 513 1160 H Impressions: Chest X-Ray 12/26/17 00:00 IMPRESSION: NO SIGNIFICANT RADIOGRAPHIC FINDING IN THE CHEST. Lung Scan-VQ NM 12/26/17 00:00 IMPRESSION: NORMAL PERFUSION LUNG SCAN. Assessment & Plan - Diagnosis (1) UTI (urinary tract infection) Qualifiers: Urinary tract infection type: acute cystitis Hematuria presence: with hematuria Qualified Code(s): N30.01 - Acute cystitis with hematuria Is this a current diagnosis for this admission?: Yes Plan: Urine culture growing E. coli and Klebsiella. Patient switch to cefazolin because of MSSA in blood (2) Bacteremia Is this a current diagnosis for this admission?: No Plan: Repeat blood cultures are negative. Initial blood culture drawn fro her port grew Staphylococcus auricularis. Ordered echocardiogram and to change to cefazolin due to MSSA. Echocardiogram has been ordered (3) Anemia Qualifiers: Anemia type: other cause Is this a current diagnosis for this admission?: Yes Plan: Acute decrease relates to chemotherapy. Improved after transfusion of 1 unit of packed red blood cell (4) Breast cancer Qualifiers: Breast location: unspecified site of breast Laterality: unspecified laterality Is this a current diagnosis for this admission?: Yes Plan: Patient made aware that for now likely she will not be able to get the next course of chemotherapy due to infection (5) Diabetes mellitus Qualifiers: Diabetes mellitus type: type 2 Diabetes mellitus complication status: with unspecified complications Diabetes mellitus intermediate insulin use: with local intermodal truck driver use Qualified Code(s): E11.8 - Type 2 diabetes mellitus with unspecified complications; Z79.4 - long term (current) use of insulin; Z79.4 - group home ( current) use of insulin; Z79.4 - group home (current) use of insulin; Z79.4 - long term (current) use of insulin Is this a current diagnosis for this admission?: Yes Plan: Continue Lantus to 28 units twice a day and will continue sliding scale (6) CKD (chronic kidney disease) stage 3, GFR 30-59 ml/min Is this a current diagnosis for this admission?: Yes Plan: Stable (7) Dyspnea Qualifiers: Dyspnea type: shortness of breath Qualified Code(s): R06.02 - Shortness of breath; R06.00 - Dyspnea, unspecified; R06.01 - Orthopnea Is this a current diagnosis for this admission?: Yes Plan: Resolved. (8) Acute respiratory failure Qualifiers: Respiratory failure complication: hypoxia Qualified Code(s): J96.01 - Acute respiratory failure with hypoxia Is this a current diagnosis for this admission?: Yes Plan: Resolved. BNP elevated and may relate to fluid overload. Echocardiogram has been requested. Continue lasix IV (9) Diarrhea Qualifiers: Diarrhea type: unspecified type Qualified Code(s): R19.7 - Diarrhea, unspecified Is this a current diagnosis for this admission?: Yes Plan: Resolved (10) Hypomagnesemia Is this a current diagnosis for this admission?: Yes Plan: Replace IV and trend - Time Time Spent with patient: 15-24 minutes Medications reviewed and adjusted accordingly: Yes - Inpatient Certification Based on my medical assessment, after consideration of the patient's comorbidities, presenting symptoms, or acuity I expect that the services needed warrant INPATIENT care.: Yes I certify that my determination is in accordance with my understanding of Medicare's requirements for reasonable and necessary INPATIENT services [42 CFR 412.3e].: Yes Medical Necessity: Need Close Monitoring Due to Risk of Patient Decompensation, Need for IV Antibiotics
[2017-12-29] MEDS ORDERED: CEFAZOLIN 2 GM/D5W RTU 2 GM/50 ML RTUPB IV SCH (12:00)
[2017-12-29] MEDS: CEFAZOLIN 2 GM/D5W RTU 2 GM/50 ML RTUPB IV SCH ×2 (16:00→21:34)
[2017-12-29] MEDS: INSULIN LISPRO 100 UNIT/ML 3 ML VIAL SUBCUT PRN ×2 (18:13→22:37)
[2017-12-29] MEDS: ATORVASTATIN CALCIUM 80 MG TABLET PO SCH (21:33)
[2017-12-29] MEDS: GABAPENTIN 300 MG CAPSULE PO SCH (21:33)
[2017-12-30] MEDS: CEFAZOLIN 2 GM/D5W RTU 2 GM/50 ML RTUPB IV SCH ×3 (02:29→15:26)
[2017-12-30] MEDS: HYDROCODONE/ACETAMINOPHEN 5-325 MG TABLET PO PRN ×3 (04:52→21:04)
[2017-12-30] MEDS: LANSOPRAZOLE 30 MG TAB.RAP.DR PO SCH (04:52)
[2017-12-30 07:26] LABS: ABSOLUTE LYMPHOCYTES (AUTO) 1.8 10^3/uL (0.5-4.7); ABSOLUTE MONOCYTES (AUTO) 1.2 10^3/uL (0.1-1.4); ABSOLUTE NEUT (AUTO) 9.2 10^3/uL (1.7-8.2); BASOPHILS % (AUTO) 0.4 % (0-2); EOSINOPHILS % (AUTO) 0.2 % (0-6); HEMATOCRIT 27.9 % (36.0-47.0); HEMOGLOBIN 9.1 g/dL (12.0-15.5); LYMPHOCYTES % (AUTO) 14.8 % (13-45); MEAN CORPUSCULAR HEMOGLOBIN 29.1 pg (27.0-33.4); MEAN CORPUSCULAR HGB CONC 32.8 g/dL (32.0-36.0); MEAN CORPUSCULAR VOLUME 89 fl (80-97); MONOCYTES % (AUTO) 9.4 % (3-13); PLATELET COUNT 364 10^3/uL (150-450); RED BLOOD COUNT 3.14 10^6/uL (3.72-5.28); RED CELL DISTRIBUTION WIDTH 18.8 % (11.5-14.0); SEGMENTED NEUTROPHILS % (AUTO) 75.2 % (42-78); TOTAL CELLS COUNTED % (AUTO) 100 %; WHITE BLOOD COUNT 12.3 10^3/uL (4.0-10.5)
[2017-12-30 07:50] LABS: ANION GAP 11 (5-19); BLOOD UREA NITROGEN 14 mg/dL (7-20); CALCIUM 9.4 mg/dL (8.4-10.2); CARBON DIOXIDE 25 mmol/L (22-30); CHLORIDE 105 mmol/L (98-107); GLUCOSE 52 mg/dL (75-110); POTASSIUM 3.7 mmol/L (3.6-5.0); SODIUM 141.1 mmol/L (137-145)
[2017-12-30] MEDS: FERROUS SULFATE 325 MG TABLET PO SCH (10:09)
[2017-12-30] MEDS: PREDNISONE 5 MG TABLET PO SCH (10:09)
[2017-12-30] MEDS: LACTOBACILLUS ACIDOPHILUS 250 MG TAB PO SCH ×2 (10:09→18:18)
[2017-12-30] MEDS: TACROLIMUS ANHYDROUS 1 MG CAPSULE PO SCH ×2 (10:10→21:05)
[2017-12-30] MEDS: AZATHIOPRINE 50 MG TABLET PO SCH (10:10)
[2017-12-30] MEDS: INSULIN GLARGINE,HUM.REC.ANLOG 300 UNIT/3 ML INSULN.PEN SUBCUT SCH ×2 (10:12→18:19)
[2017-12-30] MEDS: ENOXAPARIN SODIUM INJ 40 MG/0.4 ML DISP.SYRIN SUBCUT SCH (10:12)
[2017-12-30] MEDS: INSULIN LISPRO 100 UNIT/ML 3 ML VIAL SUBCUT PRN ×2 (13:18→18:19)
--- NOTE | 2017-12-30 16:55 | PDOC PROGRESS REPORT ---
Subjective Progress Note for:: 12/30/17 Subjective:: No complaints Review of systems All organ systems evaluated and negative except as seen subjective All laboratories and diagnostics have been reviewed Reason For Visit: FEVER,IMMUNOSUPPRESSED Physical Exam Vital Signs: Temp Pulse Resp BP Pulse Ox 98.8 F 108 H 19 145/65 H 99 12/30/17 04:08 12/30/17 04:08 12/30/17 04:08 12/30/17 04:08 12/30/17 04:08 Intake & Output 12/29/17 12/30/17 12/31/17 06:59 06:59 06:59 Intake Total 2076 173 Balance 2076 1736 Weight 89.8 kg 88.3 kg General appearance: PRESENT: no acute distress, morbidly obese Head exam: PRESENT: atraumatic, normocephalic Eye exam: PRESENT: EOMI, PERRLA Ear exam: PRESENT: normal external ear exam Mouth exam: PRESENT: moist, neck supple Neck exam: PRESENT: full ROM. ABSENT: JVD, lymphadenopathy Respiratory exam: PRESENT: clear to auscultation niki Cardiovascular exam: PRESENT: RRR. ABSENT: diastolic murmur, systolic murmur Vascular exam: PRESENT: normal capillary refill Extremities exam: PRESENT: full ROM. ABSENT: clubbing, pedal edema Musculoskeletal exam: PRESENT: ambulatory. ABSENT: full ROM Neurological exam: PRESENT: alert, awake, oriented to person, oriented to place , oriented to time, oriented to situation, CN II-XII grossly intact Psychiatric exam: PRESENT: appropriate affect, normal mood Skin exam: PRESENT: intact, normal color Results Laboratory Results: 12/29/17 05:30 12/29/17 05:30 12/26/17 12/28/17 11:29 06:00 NT-Pro-B Natriuret Pep 513 1160 H Impressions: Chest X-Ray 12/26/17 00:00 IMPRESSION: NO SIGNIFICANT RADIOGRAPHIC FINDING IN THE CHEST. Lung Scan-VQ NM 12/26/17 00:00 IMPRESSION: NORMAL PERFUSION LUNG SCAN. Assessment & Plan - Diagnosis (1) UTI (urinary tract infection) Qualifiers: Urinary tract infection type: acute cystitis Hematuria presence: with hematuria Qualified Code(s): N30.01 - Acute cystitis with hematuria Is this a current diagnosis for this admission?: Yes Plan: Urine culture growing E. coli and Klebsiella. Ceftin 500 mgs po bid (2) Bacteremia Is this a current diagnosis for this admission?: No Plan: Repeat blood cultures realigned still growing gram-positive cocci. Talk to patient's oncologist Dr. Hearn [phone] And agrees line need to come off. Patient still needing 3 more treatments for cancer therapy. I had requested a PICC line and then found out after I talked to these Dr. Hearn, that radiology was concerned about the kidney functions even though is normal. We do not have a renal service available for consult for the next [address] Santos to remove the MediPort. A peripheral line has been obtained and will put patient on nafcillin 12 g continuously. Recommend to contact her oncologist again for further redirect. Oncologist is willing to follow-up patient as far as obtaining blood cultures etc. (3) Anemia Qualifiers: Anemia type: other cause Is this a current diagnosis for this admission?: Yes Plan: Acute decrease relates to chemotherapy. Improved after transfusion of 1 unit of packed red blood cell (4) Breast cancer Qualifiers: Breast location: unspecified site of breast Laterality: unspecified laterality Is this a current diagnosis for this admission?: Yes Plan: Patient made aware that for now likely she will not be able to get the next course of chemotherapy due to infection (5) Diabetes mellitus Qualifiers: Diabetes mellitus type: type 2 Diabetes mellitus complication status: with unspecified complications Diabetes mellitus local company intermodal truck driver insulin use: with local company intermodal truck driver use Qualified Code(s): E11.8 - Type 2 diabetes mellitus with unspecified complications; Z79.4 - penitentiary (current) use of insulin; Z79.4 - penitentiary ( current) use of insulin; 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 of insulin; 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 of insulin Is this a current diagnosis for this admission?: Yes (6) CKD (chronic kidney disease) stage 3, GFR 30-59 ml/min Is this a current diagnosis for this admission?: Yes Plan: Stable (7) Dyspnea Qualifiers: Dyspnea type: shortness of breath Qualified Code(s): R06.02 - Shortness of breath; R06.00 - Dyspnea, unspecified; R06.01 - Orthopnea Is this a current diagnosis for this admission?: Yes Plan: Resolved. (8) Acute respiratory failure Qualifiers: Respiratory failure complication: hypoxia Qualified Code(s): J96.01 - Acute respiratory failure with hypoxia Is this a current diagnosis for this admission?: Yes Plan: Resolved. BNP elevated and may relate to fluid overload. Echocardiogram result is pending. Off lasix (9) Diarrhea Qualifiers: Diarrhea type: unspecified type Qualified Code(s): R19.7 - Diarrhea, unspecified Is this a current diagnosis for this admission?: Yes Plan: Resolved (10) Hypomagnesemia Is this a current diagnosis for this admission?: Yes Plan: Replaced - Time Time Spent with patient: 15-24 minutes Medications reviewed and adjusted accordingly: Yes Anticipated discharge: Home with Homehealth Within: within 48 hours - Inpatient Certification Based on my medical assessment, after consideration of the patient's comorbidities, presenting symptoms, or acuity I expect that the services needed warrant INPATIENT care.: Yes I certify that my determination is in accordance with my understanding of Medicare's requirements for reasonable and necessary INPATIENT services [42 CFR 412.3e].: Yes Medical Necessity: Need for IV Antibiotics
[2017-12-30] MEDS ORDERED: DILTIAZEM HCL INJ 25 MG/5 ML VIAL ONE (17:55)
[2017-12-30] MEDS ORDERED: WATER IV PRN (18:00)
[2017-12-30] MEDS ORDERED: NAFCILLIN SODIUM IV PRN (18:00)
[2017-12-30] MEDS ORDERED: DEXTROSE 5% IV PRN (18:00)
--- NOTE | 2017-12-30 18:05 | XCELERA REPORT ---
[address] [address] Transthoracic Echocardiogram Report Name: CINTHIA ROSS Age: 57 yrs Gender: Female : 1960 Patient Status: Inpatient Patient Location: [address] [place] [address] Study Date: 12/30/2017 10:59 AM Height: 63 in Weight: 203 lb BSA: 1.9 m2 Procedure: A complete two-dimensional transthoracic echocardiogram was performed (2D, M-mode, spectral and color flow Doppler). The study was technically adequate with some images being suboptimal in quality. Reason For Study: elevated bnp/dyspnea Ordering Physician: FAHAD ARANGO Performed By: Trista Herron Interpretation Summary The left ventricular ejection fraction is normal. There is borderline concentric left ventricular hypertrophy. The left ventricle is grossly normal size. Doppler measurements suggest pseudonormalized left ventricular relaxation, which is associated with grade II/IV or mild to moderate diastolic dysfunction Wall motion cannot be accurately commented on, but no definite regional wall motion abnormalities noted. Borderline right ventricular enlargement. The right atrium is normal in size The left atrium is mildly dilated. There is a trace amount of mitral regurgitation There is no mitral valve stenosis. No aortic regurgitation is present. There is no aortic valve stenosis There is a trace or physiologic amount of tricuspid regurgitation Tricuspid regurgitation jet envelope not well defined to measure RV systolic pressure accurately. There is no pericardial effusion. MMode/2D Measurements & Calculations RVDd: 4.3 cm LVIDd: 4.9 cm FS: 39.5 % Ao root diam: 2.6 cm IVSd: 0.97 cm LVIDs: 3.0 cm EDV(Teich): 113.7 ml LVPWd: 0.98 cm ESV(Teich): 34.2 ml Ao root area: 5.3 cm2 EF(Teich): 69.9 % Doppler Measurements & Calculations MV E max mao: MV dec slope: Ao V2 max: LV V1 max P.5 cm/sec 200.4 cm/sec 8.6 mmHg MV A max mao: 696.1 cm/sec2 Ao max PG: LV V1 max: 145.7 cm/sec MV dec time: 16.1 mmHg 146.3 cm/sec MV E/A: 0.57 0.12 sec PA V2 max: TR max mao: 134.4 cm/sec 239.7 cm/sec PA max P.2 mmHgTR max P.0 mmHg Left Ventricle The left ventricle is grossly normal size. There is borderline concentric left ventricular hypertrophy. The left ventricular ejection fraction is normal. Doppler measurements suggest pseudonormalized left ventricular relaxation, which is associated with grade II/IV or mild to moderate diastolic dysfunction. Wall motion cannot be accurately commented on, but no definite regional wall motion abnormalities noted. Right Ventricle Borderline right ventricular enlargement. There is normal right ventricular wall thickness. The right ventricular systolic function is normal. Atria The right atrium is normal in size. The left atrium is mildly dilated. Interarterial septum not well visualized and not well dopplered. Cannot comment on ASD/PFO presence. Mitral Valve The mitral valve is grossly normal. There is no mitral valve stenosis. There is a trace amount of mitral regurgitation. Aortic Valve The aortic valve is grossly normal. There is no aortic valve stenosis. No aortic regurgitation is present. Tricuspid Valve The tricuspid valve is not well visualized secondary to technical limitations. There is no tricuspid stenosis. There is a trace or physiologic amount of tricuspid regurgitation. Tricuspid regurgitation jet envelope not well defined to measure RV systolic pressure accurately. Pulmonic Valve The pulmonic valve is not well visualized. Great Vessels The aortic root is not well visualized but is probably normal size. The inferior vena cava appeared normal and decreased > 50% with respiration (RAP 5-10 mmHg). Effusions There is no pericardial effusion. : FAHAD ARANGO > Batool Butler
[2017-12-30] MEDS ORDERED: NORMAL SALINE 500 ML IV ONE (18:12)
[2017-12-30] MEDS: CEFUROXIME 500 MG TABLET PO SCH (18:18)
[2017-12-30] MEDS: GABAPENTIN 300 MG CAPSULE PO SCH (21:04)
[2017-12-30] MEDS: ATORVASTATIN CALCIUM 80 MG TABLET PO SCH (21:04)
[2017-12-31] MEDS: HYDROCODONE/ACETAMINOPHEN 5-325 MG TABLET PO PRN ×3 (02:41→22:38)
--- NOTE | 2017-12-31 06:43 | CONSULTATION REPORT E ---
Consultation Report NAME: CINTHIA ROSS : 1960 AGE: 57Y DATE: 12/30/2017 330 A TO: IKE STEPHENS M.D. FROM: LUKASZ ASHLEY M.D. Requesting Physician Patient is seen at the request of the hospitalist. CHIEF COMPLAINT: Port removal. HISTORY OF PRESENT ILLNESS: The patient is a 57-year-old, -Y[place] female with a long history of multiple chronic medical problems who was rehospitalized at [facility] approximately 1 week ago to the hospitalist service for fever, shaking chills, and weakness. She was felt to have sepsis, likely of urinary tract infection. She was started on intravenous antibiotics with resolution of UTI sxs but tachycardia has persisted. She has had extensive workup including VQ scan negative for PE, and chest x-ray showing no evidence of pneumonia. Two sets of blood cultures, 1 from 12/23 and 1 from 12/28 grew out gram-positive cocci , identification pending. Opinion was rendered by patient's oncologist who recommended port removal. Surgery was consulted. The patient's history is significant for end-stage renal disease, 20 years status post cadaveric kidney transplant by Dr. Tylor Hurt, [facility]. The patient is maintained on chronic tacrolimus and Imuran immunosuppression. Several months ago, the patient was diagnosed with triple-negative breast cancer. She is undergoing neoadjuvant chemotherapy through a right subclavian Infusaport catheter placed approximately 4 months ago by [facility]. According to the patient, her primary tumor has shrunk favorably. This is her first Infusaport catheter. She denies problems with it to date. Past medical and surgical history, review of systems, and medications, are all found in the history and physical document. PHYSICAL EXAM: GENERAL: Patient examined on the third floor of [facility]. She remains tachycardic throughout her entire hospitalization. Temperature has been afebrile. Again, patient immunosuppressed pharmacologically. Patient is awake, alert and oriented x4. NEUROLOGIC: Patient is getting up and going to the bathroom at the bedside commode. CHEST: Examination revealed right subclavian port in position. No erythema, edema, swelling, drainage, etc. The port is de-accessed. It feels like it is an elongated, 2-chamber port. CARDIOPULMONARY: The rest of the cardiopulmonary exam is grossly unremarkable except for the tachycardia. LABORATORY PROFILE: White blood cell count up to 12,300, hemoglobin 9.1. PT/INR on 12/23 unremarkable, BUN and creatinine this morning 1.3 and 14. IMPRESSION: Gram-positive septicemia in pharmacologically immunosuppressed patient with diabetes, end-stage renal failure with kidney transplant, superimposed on neoadjuvant chemotherapy for Stage II, triple-negative breast cancer; rule out port as source for sepsis. RECOMMENDATIONS: 1. I received this consultation at approximately 7:30 this evening. Due to intraoperative surgical commitments and other more emergent consults, I am seen the patient now at 11 p.m. She is not interested in performing a procedure at bedside tonight. 2. We will review patient's case for port removal tomorrow with the team. This will be done by the surgicalist of the day. I explained to the patient that a reassessment will occur in the morning, and if deemed appropriate, port can be removed at bedside. 3. Will hold Lovenox and other blood thinners tonight and tomorrow morning. DICTATING PHYSICIAN: IKE STEPHENS M.D. [id number] PHY#: [id number] ID: [id number] JOB#: [id number] ACCT: [id number] cc:IKE STEPHENS M.D. > MTDD
[2017-12-31] MEDS: LANSOPRAZOLE 30 MG TAB.RAP.DR PO SCH (06:56)
[2017-12-31 07:35] LABS: ABSOLUTE LYMPHOCYTES (AUTO) 1.9 10^3/uL (0.5-4.7); ABSOLUTE NEUT (AUTO) 4.6 10^3/uL (1.7-8.2); BASOPHILS % (AUTO) 0.4 % (0-2); EOSINOPHILS % (AUTO) 0.3 % (0-6); HEMOGLOBIN 8.9 g/dL (12.0-15.5); LYMPHOCYTES % (AUTO) 24.6 % (13-45); MEAN CORPUSCULAR HGB CONC 34.2 g/dL (32.0-36.0); MEAN CORPUSCULAR VOLUME 88 fl (80-97); MONOCYTES % (AUTO) 13.9 % (3-13); PLATELET COUNT 329 10^3/uL (150-450); RED BLOOD COUNT 2.96 10^6/uL (3.72-5.28); RED CELL DISTRIBUTION WIDTH 18.9 % (11.5-14.0); SEGMENTED NEUTROPHILS % (AUTO) 60.8 % (42-78); TOTAL CELLS COUNTED % (AUTO) 100 %; WHITE BLOOD COUNT 7.5 10^3/uL (4.0-10.5)
[2017-12-31 07:39] LABS: ANION GAP 8 (5-19); BLOOD UREA NITROGEN 12 mg/dL (7-20); CALCIUM 9.3 mg/dL (8.4-10.2); CARBON DIOXIDE 24 mmol/L (22-30); CHLORIDE 110 mmol/L (98-107); GLUCOSE 77 mg/dL (75-110); POTASSIUM 4.1 mmol/L (3.6-5.0); SODIUM 141.6 mmol/L (137-145)
[2017-12-31] MEDS: ENOXAPARIN SODIUM INJ 40 MG/0.4 ML DISP.SYRIN SUBCUT SCH (09:22)
[2017-12-31] MEDS ORDERED: GLUCAGON,HUMAN RECOMB 1 MG INJ SUBCUT PRN (10:35)
[2017-12-31] MEDS ORDERED: DEXTROSE 40% GEL 15 GM TUBE PO PRN ×2 (10:35)
[2017-12-31] MEDS ORDERED: DEXTROSE 50%-WATER 25 GM/50 ML DISP.SYRIN IV PRN ×2 (10:35)
--- NOTE | 2017-12-31 10:35 | PDOC PROGRESS REPORT ---
Subjective Progress Note for:: 12/31/17 Subjective:: No complaints this morning. She reports no tenderness around the port site Reason For Visit: FEVER,IMMUNOSUPPRESSED Physical Exam Vital Signs: Temp Pulse Resp BP Pulse Ox 98.5 F 106 H 14 141/67 H 94 12/31/17 08:25 12/31/17 08:25 12/31/17 08:25 12/31/17 08:25 12/31/17 08:25 Intake & Output 12/30/17 12/31/17 01/01/18 06:59 06:59 06:59 Intake Total 1737 1465 Balance 1737 1465 Weight 88.3 kg Respiratory exam: PRESENT: clear to auscultation niki Cardiovascular exam: PRESENT: RRR GI/Abdominal exam: PRESENT: soft, other - Nontender. Bowel sounds normal Skin exam: PRESENT: other - Port site without significant erythema. There is some mild thickening of the subcutaneous tissue around the port site. Results Laboratory Results: 12/31/17 06:37 12/31/17 06:37 12/31/17 12/31/17 06:37 06:37 WBC 7.5 RBC 2.96 L Hgb 8.9 L Hct 26.0 L MCV 88 MCH 30.0 MCHC 34.2 RDW 18.9 H Plt Count 329 Seg Neutrophils % 60.8 Lymphocytes % 24.6 Monocytes % 13.9 H Eosinophils % 0.3 Basophils % 0.4 Absolute Neutrophils 4.6 Absolute Lymphocytes 1.9 Absolute Monocytes 1.0 Absolute Eosinophils 0.0 Absolute Basophils 0.0 Sodium 141.6 Potassium 4.1 Chloride 110 H Carbon Dioxide 24 Anion Gap 8 BUN 12 Creatinine 1.19 Est GFR ( Amer) 56 L Est GFR (Non-Af Amer) 47 L Glucose 77 Calcium 9.3 Magnesium 1.6 12/28/17 16:43 Blood Blood Culture - Final Staphylococcus Epidermidis 12/25/17 17:25 Blood Blood Culture - Final NO GROWTH IN 5 DAYS 12/25/17 15:40 Blood Blood Culture - Final NO GROWTH IN 5 DAYS 12/26/17 12/28/17 11:29 06:00 NT-Pro-B Natriuret Pep 513 1160 H Impressions: Chest X-Ray 12/26/17 00:00 IMPRESSION: NO SIGNIFICANT RADIOGRAPHIC FINDING IN THE CHEST. Lung Scan-VQ NM 12/26/17 00:00 IMPRESSION: NORMAL PERFUSION LUNG SCAN. Assessment & Plan - Diagnosis (1) Bacteremia Is this a current diagnosis for this admission?: No - Plan Summary Plan Summary: Oncology would like to have the port removed. I will make her n.p.o. after midnight and plan removal of the port in the operating room tomorrow.
[2017-12-31] MEDS: FERROUS SULFATE 325 MG TABLET PO SCH (11:54)
[2017-12-31] MEDS: TACROLIMUS ANHYDROUS 1 MG CAPSULE PO SCH ×2 (11:54→22:40)
[2017-12-31] MEDS: PREDNISONE 5 MG TABLET PO SCH (11:55)
[2017-12-31] MEDS: LACTOBACILLUS ACIDOPHILUS 250 MG TAB PO SCH ×2 (11:56→17:37)
[2017-12-31] MEDS: CEFUROXIME 500 MG TABLET PO SCH ×2 (11:56→17:37)
[2017-12-31] MEDS: AZATHIOPRINE 50 MG TABLET PO SCH (11:57)
[2017-12-31] MEDS: INSULIN GLARGINE,HUM.REC.ANLOG 300 UNIT/3 ML INSULN.PEN SUBCUT SCH ×2 (12:56→17:39)
--- NOTE | 2017-12-31 14:28 | PDOC CONSULTATION ---
<ZENAIDA SWAIN - Last Filed: 12/31/17 14:06> Consultation Consult Date: 12/31/17 Consult reason:: PICC line placement approval History of Present Illness Admission Date/PCP: 12/23/17 15:49 History of Present Illness: CINTHIA ROSS is a 57 year old female who presents to the emergency room with fever and shaking chills and weakness. Her past medical history is significant for stage II breast cancer for which she is undergoing treatment in [place]. The patient is feeling quite poorly and this an extremely poor historian however it appears her past medical history is significant for a transplanted kidney in 1998, diabetes mellitus, hypertension and hyperlipidemia. She is chronically immunosuppressed due to her transplanted kidney. She reports that s she just started a new chemotherapy a couple of weeks ago. She has felt bad since the time of starting that chemo. She had increasing weakness. She has had a non-productive cough over the past week. She has had nausea but no vomiting. At the time of admission she was having mild stomach pain and she was having dysuria. Over her visit blood cultures and an urine culture was done. Both showed growth. At this time I was consulted to determine if she could have a picc line placed. According to her, her baseline creatinine is from 1.1 to 1.4. Past Medical History Pulmonary Medical History: Reports: None Neurological Medical History: Reports: None Endocrine Medical History: Reports: Diabetes Mellitus Type 2 Complications of Diabetes: Reports: None Renal/ Medical History: Reports: Other - The patient has a transplanted kidney Malignancy Medical History: Reports: Breast Cancer - chemo 2 weeks ago Psychiatric Medical History: Reports: None Traumatic Medical History: Reports: None Past Surgical History Past Surgical History: Reports: Other - port Social History Lives with: Family Smoking Status: Former Smoker Last Time Smoked: 1998 Frequency of Alcohol Use: None Hx Recreational Drug Use: No Drugs: None - Advance Directive Resuscitation Status: Full Code Family History Parental Family History Reviewed: No Children Family History Reviewed: NA Sibling(s) Family History Reviewed.: NA Medication/Allergy Home Medications: Amlodipine Besylate [Norvasc 10 mg Tablet] 10 mg PO DAILY 12/23/17 Atorvastatin Calcium [Lipitor 80 mg Tablet] 80 mg PO QHS 12/23/17 Dexamethasone [Decadron 4 Mg Tablet] 8 mg PO BID MDD SEE PATIENT COMMENTS Esomeprazole Mag Trihydrate [Nexium] 40 mg PO ACBRKFST 12/23/17 Ferrous Sulfate [Feosol 325 mg Tablet] 325 mg PO DAILY 12/23/17 Gabapentin [Neurontin 300 mg Capsule] 300 mg PO Q8 12/23/17 Glyburide [Diabeta 5 mg Tablet] 5 mg PO DAILY 12/23/17 Insulin Glargine,Hum.rec.anlog [Lantus Solostar] 28 unit SQ QHS 12/23/17 Ondansetron [Zofran Odt 4 mg Tablet] 8 mg PO Q6HP PRN 12/23/17 Prednisone [Deltasone 5 mg Tablet] 5 mg PO WBRKFST 12/23/17 Prochlorperazine Maleate [Compazine 10 mg Tablet] 10 mg PO Q6HP PRN 12/23/17 Sennosides/Docusate 8.6-50 mg [Senna Plus Tablet] 1 tab PO DAILY 12/23/17 Tramadol HCl [Ultram 50 mg Tablet] 50 mg PO Q6HP PRN 12/23/17 Allergies/Adverse Reactions: Sulfa (Sulfonamide Antibiotics) Adverse Reaction (Verified 12/23/17 12:00) Review of Systems Constitutional: PRESENT: weakness. ABSENT: chills, fever(s), headache(s) - f Eyes: ABSENT: visual disturbances Ears: ABSENT: hearing changes Cardiovascular: ABSENT: chest pain, dyspnea on exertion, edema, orthropnea, palpitations Respiratory: PRESENT: cough. ABSENT: dyspnea, sputum Gastrointestinal: PRESENT: nausea. ABSENT: abdominal pain, constipation, diarrhea, vomiting Genitourinary: PRESENT: dysuria. ABSENT: hematuria Musculoskeletal: PRESENT: muscle weakness Integumentary: ABSENT: erythema, lesions Neurological: PRESENT: weakness. ABSENT: dizziness, numbness Physical Exam Vital Signs: Temp Pulse Resp BP Pulse Ox 98.0 F 111 H 18 166/65 H 98 12/31/17 11:48 12/31/17 11:48 12/31/17 11:48 12/31/17 11:48 12/31/17 11:48 Intake & Output 12/30/17 12/31/17 01/01/18 06:59 06:59 06:59 Intake Total 1737 1465 0 Balance 1737 1465 0 Weight 88.3 kg General appearance: PRESENT: no acute distress, well-developed, well-nourished Mouth exam: PRESENT: moist, neck supple Neck exam: PRESENT: full ROM. ABSENT: JVD Respiratory exam: PRESENT: clear to auscultation niki. ABSENT: accessory muscle use, crackles, rales, rhonchi, wheezes Cardiovascular exam: PRESENT: RRR, +S1, +S2 GI/Abdominal exam: PRESENT: soft Extremities exam: ABSENT: pedal edema, tenderness Musculoskeletal exam: PRESENT: normal inspection. ABSENT: tenderness Neurological exam: PRESENT: alert, awake, oriented to person, oriented to place , oriented to time, oriented to situation Skin exam: PRESENT: dry, intact, warm Results Laboratory Results: 12/31/17 06:37 12/31/17 06:37 12/31/17 12/31/17 06:37 06:37 WBC 7.5 RBC 2.96 L Hgb 8.9 L Hct 26.0 L MCV 88 MCH 30.0 MCHC 34.2 RDW 18.9 H Plt Count 329 Seg Neutrophils % 60.8 Lymphocytes % 24.6 Monocytes % 13.9 H Eosinophils % 0.3 Basophils % 0.4 Absolute Neutrophils 4.6 Absolute Lymphocytes 1.9 Absolute Monocytes 1.0 Absolute Eosinophils 0.0 Absolute Basophils 0.0 Sodium 141.6 Potassium 4.1 Chloride 110 H Carbon Dioxide 24 Anion Gap 8 BUN 12 Creatinine 1.19 Est GFR ( Amer) 56 L Est GFR (Non-Af Amer) 47 L Glucose 77 Calcium 9.3 Magnesium 1.6 12/28/17 16:43 Blood Blood Culture - Final Staphylococcus Epidermidis 12/25/17 17:25 Blood Blood Culture - Final NO GROWTH IN 5 DAYS 12/25/17 15:40 Blood Blood Culture - Final NO GROWTH IN 5 DAYS 12/26/17 12/28/17 11:29 06:00 NT-Pro-B Natriuret Pep 513 1160 H Impressions: Chest X-Ray 12/26/17 00:00 IMPRESSION: NO SIGNIFICANT RADIOGRAPHIC FINDING IN THE CHEST. Lung Scan-VQ NM 12/26/17 00:00 IMPRESSION: NORMAL PERFUSION LUNG SCAN. Assessment & Plan - Diagnosis (1) Bacteremia Is this a current diagnosis for this admission?: No Plan: With the patient's current GFR she is okay to have a picc lined placed. <Celso FOFANA - Last Filed: 01/01/18 13:35> History of Present Illness Admission Date/PCP: 12/23/17 15:49 History of Present Illness: CINTHIA ROSS is a 57 year old female Physical Exam Vital Signs: Temp Pulse Resp BP Pulse Ox 99.0 F 120 H 17 152/70 H 100 01/01/18 12:42 01/01/18 12:42 01/01/18 12:42 01/01/18 12:42 01/01/18 12:42 Intake & Output 12/31/17 01/01/18 01/02/18 06:59 06:59 06:59 Intake Total 1465 1310 360 Output Total 0 60 Balance 1465 1310 300 Weight 90.7 kg Results Laboratory Results: 01/01/18 05:44 12/31/17 06:37 01/01/18 05:44 WBC 7.4 RBC 2.85 L Hgb 8.4 L Hct 25.1 L MCV 88 MCH 29.6 MCHC 33.6 RDW 18.6 H Plt Count 314 12/28/17 16:43 Blood Blood Culture - Final Staphylococcus Epidermidis 12/26/17 12/28/17 11:29 06:00 NT-Pro-B Natriuret Pep 513 1160 H Impressions: Chest X-Ray 12/26/17 00:00 IMPRESSION: NO SIGNIFICANT RADIOGRAPHIC FINDING IN THE CHEST. Lung Scan-VQ NM 12/26/17 00:00 IMPRESSION: NORMAL PERFUSION LUNG SCAN. Assessment & Plan - Diagnosis (1) CKD (chronic kidney disease) stage 3, GFR 30-59 ml/min Is this a current diagnosis for this admission?: Yes Plan: CKD 3 in the background of transplanted kidney. Given that she is OK to have the PICC line. (2) Diabetes mellitus Qualifiers: Diabetes mellitus type: type 2 Diabetes mellitus complication status: with unspecified complications Diabetes mellitus group home insulin use: with group home use Qualified Code(s): E11.8 - Type 2 diabetes mellitus with unspecified complications; Z79.4 - oil heaterman (current) use of insulin; Z79.4 - MCC ( current) use of insulin; Z79.4 - oil heaterman (current) use of insulin; Z79.4 - MCC (current) use of insulin Is this a current diagnosis for this admission?: Yes Plan: Adv on tight control (3) Transplanted kidney Is this a current diagnosis for this admission?: Yes Plan: On high risk meds.
[2017-12-31] MEDS: INSULIN LISPRO 100 UNIT/ML 3 ML VIAL SUBCUT PRN (17:45)
--- NOTE | 2017-12-31 18:11 | PDOC PROGRESS REPORT ---
Subjective Progress Note for:: 12/31/17 Subjective:: Patient is doing well she has no specific complaints no fever no chills no shortness of breath Reason For Visit: FEVER,IMMUNOSUPPRESSED Physical Exam Vital Signs: Temp Pulse Resp BP Pulse Ox 98.1 F 105 H 18 124/62 100 12/31/17 15:23 12/31/17 15:23 12/31/17 15:23 12/31/17 15:23 12/31/17 15:23 Intake & Output 12/30/17 12/31/17 01/01/18 00:59 00:59 00:59 Intake Total 1667 1085 480 Balance 1667 1085 480 Weight 89.8 kg 88.3 kg General appearance: PRESENT: no acute distress, morbidly obese Head exam: PRESENT: atraumatic, normocephalic Eye exam: PRESENT: EOMI, PERRLA Ear exam: PRESENT: normal external ear exam Mouth exam: PRESENT: moist, neck supple Neck exam: PRESENT: full ROM. ABSENT: JVD, lymphadenopathy Respiratory exam: PRESENT: clear to auscultation niki Cardiovascular exam: PRESENT: RRR. Grade 3/6 systolic murmur Vascular exam: PRESENT: normal capillary refill Extremities exam: PRESENT: full ROM. ABSENT: clubbing, pedal edema Musculoskeletal exam: PRESENT: ambulatory. ABSENT: full ROM Neurological exam: PRESENT: alert, awake, oriented to person, oriented to place , oriented to time, oriented to situation, CN II-XII grossly intact Results Laboratory Results: 12/31/17 06:37 12/31/17 06:37 12/31/17 12/31/17 06:37 06:37 WBC 7.5 RBC 2.96 L Hgb 8.9 L Hct 26.0 L MCV 88 MCH 30.0 MCHC 34.2 RDW 18.9 H Plt Count 329 Seg Neutrophils % 60.8 Lymphocytes % 24.6 Monocytes % 13.9 H Eosinophils % 0.3 Basophils % 0.4 Absolute Neutrophils 4.6 Absolute Lymphocytes 1.9 Absolute Monocytes 1.0 Absolute Eosinophils 0.0 Absolute Basophils 0.0 Sodium 141.6 Potassium 4.1 Chloride 110 H Carbon Dioxide 24 Anion Gap 8 BUN 12 Creatinine 1.19 Est GFR ( Amer) 56 L Est GFR (Non-Af Amer) 47 L Glucose 77 Calcium 9.3 Magnesium 1.6 12/28/17 16:43 Blood Blood Culture - Final Staphylococcus Epidermidis 12/25/17 17:25 Blood Blood Culture - Final NO GROWTH IN 5 DAYS 12/25/17 15:40 Blood Blood Culture - Final NO GROWTH IN 5 DAYS 12/26/17 12/28/17 11:29 06:00 NT-Pro-B Natriuret Pep 513 1160 H Impressions: Chest X-Ray 12/26/17 00:00 IMPRESSION: NO SIGNIFICANT RADIOGRAPHIC FINDING IN THE CHEST. Lung Scan-VQ NM 12/26/17 00:00 IMPRESSION: NORMAL PERFUSION LUNG SCAN. Assessment & Plan - Diagnosis (1) MSSA (methicillin susceptible Staphylococcus aureus) Is this a current diagnosis for this admission?: Yes Plan: Bacteremia on nafcillin IV PICC line insertion was improved Treatment should be 14 days of treatment after negative blood culture (2) Breast cancer Qualifiers: Breast location: unspecified site of breast Laterality: unspecified laterality Is this a current diagnosis for this admission?: Yes (3) CKD (chronic kidney disease) stage 3, GFR 30-59 ml/min Is this a current diagnosis for this admission?: Yes - Time Time Spent with patient: PICC line to be inserted in a.m. Patient may be transferred to telemetry unit Time Spent with patient: 25-34 minutes
[2017-12-31] MEDS ORDERED: VANCOMYCIN HCL 0 MG in DEXTROSE 5%-WATER 250 ML IV NR (18:30)
[2017-12-31] MEDS: ATORVASTATIN CALCIUM 80 MG TABLET PO SCH (22:36)
[2017-12-31] MEDS: GABAPENTIN 300 MG CAPSULE PO SCH (22:38)
[2017-12-31] MEDS: VANCOMYCIN HCL 1,000 MG in DEXTROSE 5%-WATER 250 ML IV SCH (22:38)
[2018-01-01] MEDS: LANSOPRAZOLE 30 MG TAB.RAP.DR PO SCH (06:07)
[2018-01-01 06:14] LABS: HEMATOCRIT 25.1 % (36.0-47.0); HEMOGLOBIN 8.4 g/dL (12.0-15.5); MEAN CORPUSCULAR HEMOGLOBIN 29.6 pg (27.0-33.4); MEAN CORPUSCULAR HGB CONC 33.6 g/dL (32.0-36.0); MEAN CORPUSCULAR VOLUME 88 fl (80-97); PLATELET COUNT 314 10^3/uL (150-450); RED BLOOD COUNT 2.85 10^6/uL (3.72-5.28); RED CELL DISTRIBUTION WIDTH 18.6 % (11.5-14.0); WHITE BLOOD COUNT 7.4 10^3/uL (4.0-10.5)
[2018-01-01] MEDS ORDERED: BUPIVACAINE HCL 0.5%-EPI 1:200000 INJ/PF 30 ML VIAL ONE (08:27)
[2018-01-01] MEDS ORDERED: NORMAL SALINE 1000 ML 1,000 ML IV PRN (08:31)
[2018-01-01] MEDS ORDERED: PROPOFOL INJ 200 MG/20 ML VIAL IV ONE (09:31)
[2018-01-01] MEDS ORDERED: MIDAZOLAM 2 MG/2 ML INJ ONE (09:31)
[2018-01-01] MEDS ORDERED: FENTANYL CITRATE INJ/PF 100 MCG/2 ML AMPUL ONE (09:31)
[2018-01-01] MEDS ORDERED: DEXMEDETOMIDINE INJ 80 MCG/20 ML VIAL IV ONE (09:32)
[2018-01-01] MEDS ORDERED: PROMETHAZINE HCL INJ 25 MG/1 ML VIAL IV PRN (10:10)
[2018-01-01] MEDS ORDERED: MEPERIDINE HCL/PF INJ 25 MG/1 ML DISP.SYRIN IV PRN (10:10)
[2018-01-01] MEDS ORDERED: FENTANYL CITRATE INJ/PF 100 MCG/2 ML AMPUL IV PRN ×3 (10:10)
--- NOTE | 2018-01-01 10:29 | Operative Report ---
Operative Report DATE OF SURGERY: 01/01/18 PREOPERATIVE DIAGNOSIS: Bacteremia POSTOPERATIVE DIAGNOSIS: Bacteremia OPERATION: Removal of Port-A-Cath SURGEON: GLORIA BARON ANESTHESIA: Local TISSUE REMOVED OR ALTERED: Port-A-Cath COMPLICATIONS: None ESTIMATED BLOOD LOSS: Minimal INTRAOPERATIVE FINDINGS: No purulent fluid identified around the port PROCEDURE: After informed consent, the patient was taken to the operating room. After administration of IV sedation, she was prepped and draped in sterile fashion. The patient was on antibiotics preoperatively at therapeutic levels. 1% lidocaine was used for local anesthesia. A skin incision was made overlying the port. No sutures were identified anchoring the port to the chest wall. The port was easily mobilized and the catheter withdrawn. The tip of the catheter was sent for culture sensitivity and Gram stain. The wound was irrigated. The wound was then closed in layers with 3-0 Vicryl subcutaneous suture and 4-0 Monocryl interrupted subcuticular closure. Dermabond was applied. The patient told procedure well, was awake from anesthesia, transferred to the recovery room in stable condition
[2018-01-01] MEDS: DIPHENHYDRAMINE HCL 50 MG/ML VIAL IV PRN ×2 (11:25→11:27)
[2018-01-01] MEDS: ENOXAPARIN SODIUM INJ 40 MG/0.4 ML DISP.SYRIN SUBCUT SCH (11:37)
[2018-01-01] MEDS: CEFUROXIME 500 MG TABLET PO SCH ×2 (11:43→17:44)
[2018-01-01] MEDS: FERROUS SULFATE 325 MG TABLET PO SCH (11:44)
[2018-01-01] MEDS: AZATHIOPRINE 50 MG TABLET PO SCH (11:44)
[2018-01-01] MEDS: PREDNISONE 5 MG TABLET PO SCH (11:45)
[2018-01-01] MEDS: VANCOMYCIN HCL 1,000 MG in DEXTROSE 5%-WATER 250 ML IV SCH ×2 (11:46→21:50)
[2018-01-01] MEDS: TACROLIMUS ANHYDROUS 1 MG CAPSULE PO SCH ×2 (11:46→21:51)
[2018-01-01] MEDS: LACTOBACILLUS ACIDOPHILUS 250 MG TAB PO SCH ×2 (11:46→17:44)
[2018-01-01] MEDS: INSULIN GLARGINE,HUM.REC.ANLOG 300 UNIT/3 ML INSULN.PEN SUBCUT SCH ×2 (11:47→17:42)
--- NOTE | 2018-01-01 14:58 | PDOC PROGRESS REPORT ---
Subjective Reason For Visit: FEVER,IMMUNOSUPPRESSED Physical Exam Vital Signs: Temp Pulse Resp BP Pulse Ox 99.0 F 120 H 17 152/70 H 100 01/01/18 12:42 01/01/18 12:42 01/01/18 12:42 01/01/18 12:42 01/01/18 12:42 Intake & Output 12/31/17 01/01/18 01/02/18 00:59 00:59 00:59 Intake Total 1085 1540 610 Output Total 60 Balance 1085 1540 550 Weight 88.3 kg 90.7 kg Results Laboratory Results: 01/01/18 05:44 12/31/17 06:37 01/01/18 05:44 WBC 7.4 RBC 2.85 L Hgb 8.4 L Hct 25.1 L MCV 88 MCH 29.6 MCHC 33.6 RDW 18.6 H Plt Count 314 12/26/17 12/28/17 11:29 06:00 NT-Pro-B Natriuret Pep 513 1160 H Impressions: Chest X-Ray 12/26/17 00:00 IMPRESSION: NO SIGNIFICANT RADIOGRAPHIC FINDING IN THE CHEST. Lung Scan-VQ NM 12/26/17 00:00 IMPRESSION: NORMAL PERFUSION LUNG SCAN. Assessment & Plan - Diagnosis (1) Breast cancer Qualifiers: Breast location: unspecified site of breast Laterality: unspecified laterality Is this a current diagnosis for this admission?: Yes (2) CKD (chronic kidney disease) stage 3, GFR 30-59 ml/min Is this a current diagnosis for this admission?: Yes (5) Diabetes mellitus Qualifiers: Diabetes mellitus type: type 2 Diabetes mellitus complication status: with unspecified complications Diabetes mellitus alf insulin use: with terminal gauger use Qualified Code(s): E11.8 - Type 2 diabetes mellitus with unspecified complications; Z79.4 - terminal gauger (current) use of insulin; Z79.4 - shelter ( current) use of insulin; Z79.4 - terminal gauger (current) use of insulin; Z79.4 - shelter (current) use of insulin Is this a current diagnosis for this admission?: Yes (6) Hypertension Qualifiers: Hypertension type: essential hypertension Qualified Code(s): I10 - Essential (primary) hypertension Is this a current diagnosis for this admission?: Yes (7) Staphylococcus epidermidis bacteremia Is this a current diagnosis for this admission?: Yes Plan: Staph epidermidis resistant to penicillin and to be treated for 2 weeks with vancomycin until 01/15/2018 Patient may be discharged tomorrow after PICC line is intact inserted patient wishes to have antibiotics at home patient to be discharged with home health and home infusions - Time Time Spent with patient: 25-34 minutes
[2018-01-01] MEDS: INSULIN LISPRO 100 UNIT/ML 3 ML VIAL SUBCUT PRN ×2 (17:44→22:13)
[2018-01-01] MEDS: HYDROCODONE/ACETAMINOPHEN 5-325 MG TABLET PO PRN (21:50)
[2018-01-01] MEDS: GABAPENTIN 300 MG CAPSULE PO SCH (21:50)
[2018-01-01] MEDS: ATORVASTATIN CALCIUM 80 MG TABLET PO SCH (21:51)
[2018-01-02] MEDS: HYDROCODONE/ACETAMINOPHEN 5-325 MG TABLET PO PRN ×2 (04:29→13:11)
[2018-01-02] MEDS: LANSOPRAZOLE 30 MG TAB.RAP.DR PO SCH (04:30)
[2018-01-02] MEDS ORDERED: AMLODIPINE BESYLATE 10 MG TABLET PO ONE (05:00)
--- NOTE | 2018-01-02 10:20 | PDOC PROGRESS REPORT ---
Subjective Progress Note for:: 01/02/18 Subjective:: No complaints Reason For Visit: FEVER,IMMUNOSUPPRESSED Physical Exam Vital Signs: Temp Pulse Resp BP Pulse Ox 99.0 F 104 H 15 151/67 H 100 01/02/18 07:35 01/02/18 07:35 01/02/18 07:35 01/02/18 07:35 01/02/18 07:35 Intake & Output 01/01/18 01/02/18 01/03/18 06:59 06:59 06:59 Intake Total 1310 1730 Output Total 0 60 Balance 1310 1670 Weight 90.7 kg 85.9 kg Skin exam: PRESENT: other - Wound is clean dry and intact with no swelling and no erythema. Results Laboratory Results: 01/01/18 05:44 12/26/17 12/28/17 11:29 06:00 NT-Pro-B Natriuret Pep 513 1160 H Impressions: Chest X-Ray 12/26/17 00:00 IMPRESSION: NO SIGNIFICANT RADIOGRAPHIC FINDING IN THE CHEST. Lung Scan-VQ NM 12/26/17 00:00 IMPRESSION: NORMAL PERFUSION LUNG SCAN. Assessment & Plan - Diagnosis (1) Bloodstream infection due to port-a-cath Is this a current diagnosis for this admission?: Yes Plan: Status post Port-A-Cath removal. Site appears good. Surgical list service signing off. Call us for any problems.
[2018-01-02] MEDS: LACTOBACILLUS ACIDOPHILUS 250 MG TAB PO SCH (10:26)
[2018-01-02] MEDS: INSULIN GLARGINE,HUM.REC.ANLOG 300 UNIT/3 ML INSULN.PEN SUBCUT SCH (10:26)
[2018-01-02] MEDS: TACROLIMUS ANHYDROUS 1 MG CAPSULE PO SCH (10:26)
[2018-01-02] MEDS: AZATHIOPRINE 50 MG TABLET PO SCH (10:27)
[2018-01-02] MEDS: PREDNISONE 5 MG TABLET PO SCH (10:27)
[2018-01-02] MEDS: FERROUS SULFATE 325 MG TABLET PO SCH (10:31)
[2018-01-02] MEDS: CEFUROXIME 500 MG TABLET PO SCH (10:32)
[2018-01-02] MEDS: VANCOMYCIN HCL 1,000 MG in DEXTROSE 5%-WATER 250 ML IV SCH (10:32)
[2018-01-02] MEDS: ENOXAPARIN SODIUM INJ 40 MG/0.4 ML DISP.SYRIN SUBCUT SCH (10:33)
[2018-01-02 11:01] LABS: VANCOMYCIN,TROUGH 20.6 ug/mL (5.0-20.0)
[2018-01-02 12:14] LABS: ABSOLUTE LYMPHOCYTES (AUTO) 1.4 10^3/uL (0.5-4.7); ABSOLUTE MONOCYTES (AUTO) 0.9 10^3/uL (0.1-1.4); BASOPHILS % (AUTO) 0.6 % (0-2); EOSINOPHILS % (AUTO) 0.6 % (0-6); HEMATOCRIT 26.1 % (36.0-47.0); HEMOGLOBIN 8.7 g/dL (12.0-15.5); LYMPHOCYTES % (AUTO) 18.6 % (13-45); MEAN CORPUSCULAR HEMOGLOBIN 29.6 pg (27.0-33.4); MEAN CORPUSCULAR HGB CONC 33.1 g/dL (32.0-36.0); MEAN CORPUSCULAR VOLUME 89 fl (80-97); MONOCYTES % (AUTO) 12.5 % (3-13); PLATELET COUNT 271 10^3/uL (150-450); RED BLOOD COUNT 2.93 10^6/uL (3.72-5.28); RED CELL DISTRIBUTION WIDTH 18.7 % (11.5-14.0); SEGMENTED NEUTROPHILS % (AUTO) 67.7 % (42-78); TOTAL CELLS COUNTED % (AUTO) 100 %; WHITE BLOOD COUNT 7.4 10^3/uL (4.0-10.5)
--- NOTE | 2018-01-02 12:24 | PDOC PROGRESS REPORT ---
Subjective Progress Note for:: 01/02/18 Subjective:: Patient is having a PICC line placed this morning she has been extremely stable Reason For Visit: FEVER,IMMUNOSUPPRESSED Physical Exam Vital Signs: Temp Pulse Resp BP Pulse Ox 99.0 F 104 H 15 151/67 H 100 01/02/18 07:35 01/02/18 07:35 01/02/18 07:35 01/02/18 07:35 01/02/18 07:35 Intake & Output 01/01/18 01/02/18 01/03/18 00:59 00:59 00:59 Intake Total 1540 1130 850 Output Total 60 Balance 1540 1070 850 Weight 90.7 kg 85.9 kg General appearance: PRESENT: no acute distress, morbidly obese Head exam: PRESENT: atraumatic, normocephalic Eye exam: PRESENT: EOMI, PERRLA Ear exam: PRESENT: normal external ear exam Mouth exam: PRESENT: moist, neck supple Neck exam: PRESENT: full ROM. ABSENT: JVD, lymphadenopathy Respiratory exam: PRESENT: clear to auscultation niki Cardiovascular exam: PRESENT: RRR. Grade 3/6 systolic murmur Vascular exam: PRESENT: normal capillary refill Extremities exam: PRESENT: full ROM. ABSENT: clubbing, pedal edema Musculoskeletal exam: PRESENT: ambulatory. ABSENT: full ROM Neurological exam: PRESENT: alert, awake, oriented to person, oriented to place , oriented to time, oriented to situation, CN II-XII grossly intact Results Laboratory Results: 01/02/18 09:58 01/02/18 09:58 01/02/18 01/02/18 09:58 09:58 WBC 7.4 RBC 2.93 L Hgb 8.7 L Hct 26.1 L MCV 89 MCH 29.6 MCHC 33.1 RDW 18.7 H Plt Count 271 Seg Neutrophils % 67.7 Lymphocytes % 18.6 Monocytes % 12.5 Eosinophils % 0.6 Basophils % 0.6 Absolute Neutrophils 5.0 Absolute Lymphocytes 1.4 Absolute Monocytes 0.9 Absolute Eosinophils 0.0 Absolute Basophils 0.0 Creatinine 1.08 Est GFR ( Amer) > 60 Est GFR (Non-Af Amer) 52 L 12/26/17 12/28/17 11:29 06:00 NT-Pro-B Natriuret Pep 513 1160 H Impressions: Chest X-Ray 12/26/17 00:00 IMPRESSION: NO SIGNIFICANT RADIOGRAPHIC FINDING IN THE CHEST. Lung Scan-VQ NM 12/26/17 00:00 IMPRESSION: NORMAL PERFUSION LUNG SCAN. Assessment & Plan - Diagnosis (1) Breast cancer Qualifiers: Breast location: unspecified site of breast Laterality: unspecified laterality Is this a current diagnosis for this admission?: Yes (2) CKD (chronic kidney disease) stage 3, GFR 30-59 ml/min Is this a current diagnosis for this admission?: Yes (5) Diabetes mellitus Qualifiers: Diabetes mellitus type: type 2 Diabetes mellitus complication status: with unspecified complications Diabetes mellitus assisted insulin use: with watermelon inspector use Qualified Code(s): E11.8 - Type 2 diabetes mellitus with unspecified complications; Z79.4 - long term (current) use of insulin; Z79.4 - custodial ( current) use of insulin; Z79.4 - custodial (current) use of insulin; Z79.4 - custodial (current) use of insulin Is this a current diagnosis for this admission?: Yes (6) Hypertension Qualifiers: Hypertension type: essential hypertension Qualified Code(s): I10 - Essential (primary) hypertension Is this a current diagnosis for this admission?: Yes (7) Staphylococcus epidermidis bacteremia Is this a current diagnosis for this admission?: Yes - Time Time Spent with patient: Patient will be discharged in a.m. with home infusions if all is set up Time Spent with patient: 25-34 minutes
--- NOTE | 2018-01-02 12:54 | RADIOLOGY REPORT (SQ) ---
EXAM DESCRIPTION: PICC INSERTION; FLUORO/CV PLACEMENT; U/S GUIDE FOR VASCULAR ACCESS COMPLETED DATE/TIME: 01/02/2018 12:25 pm REASON FOR STUDY: No IV access; IV ACCESS COMPARISON: Chest films 12/26/2017 FLUOROSCOPY TIME: 55 seconds total fluoro time 2 digital chest images and 1 ultrasound image saved to PACS. TECHNIQUE: Fluoroscopic and ultrasound guided PICC placement. LIMITATIONS: None. PROCEDURE: After written consent and assessment were obtained, the patient was brought into the fluo roscopy room and place supine on the table. Ultrasound was used on the patient's right arm for PICC access. The right arm was prepped and draped in a sterile fashion along with the ultrasound probe. Th e entry site was anesthetized with 3.5 mL of 1% lidocaine. A 21 gauge 7 cm needle was advanced throug h the skin and into the basilic vein under live ultrasound guidance. An ultrasound image was saved t o PACS confirming access site. A .018 guide wire was then inserted through the needle and into the v enous system. The needle was the removed and an 11 blade scalpel was used to make a 1cm skin incision . A 5 fr peel-away sheath was advanced over the wire and into the venous system. A measurement was t hen made using the existing wire and live fluoroscopic guidance. The wire was then removed and the tr immed. The PICC was advanced through the peel-away sheath and into the venous system. The peel-away s hailey was removed and the catheter was adhered to the patients arm with a stat lock. The catheter was then aspirated and flushed and a sterile bandage was placed over the access site. A fluoroscopic sp ot image was saved to PACS confirming the catheter tip within the superior vena cava. IMPRESSION: SUCCESSFUL PLACEMENT OF A 5 FR DUAL LUMEN 35 CM PICC IN THE RIGHT BASILIC VEIN. COMMENT: Patient medication list reviewed: Yes- Quality ID# 130:Eligible professional attests to doc umenting in the medical record they obtained, updated, or reviewed the patient's current medications. . Quality ID 145: Final reports for procedures using fluoroscopy that document radiation exposure lennie shahriar, or exposure time and number of fluorographic images (if radiation exposure indices are not avail able) Quality ID #76: The patient was prepped and draped using maximum sterile barrier technique including cap, mask, sterile gown, sterile gloves, a large sterile sheet, hand hygiene, and 2% Chlorhexidine fo r cutaneous antisepsis. When ultrasound is used, sterile ultrasound techniques are followed requiring sterile gel and sterile probes. TECHNICAL DOCUMENTATION: JOB ID: [id number] [employer]- All Rights Reserved
--- NOTE | 2018-01-02 14:56 | PDOC DISCHARGE SUMMARY ---
General - Admit/Disc Date/PCP Admission Date/Primary Care Provider: 12/23/17 15:49 Discharge Date: 01/02/18 - Discharge Diagnosis (1) Breast cancer Is this a current diagnosis for this admission?: Yes (2) CKD (chronic kidney disease) stage 3, GFR 30-59 ml/min Is this a current diagnosis for this admission?: Yes (5) Diabetes mellitus Is this a current diagnosis for this admission?: Yes (6) Hypertension Is this a current diagnosis for this admission?: Yes (7) Staphylococcus epidermidis bacteremia Is this a current diagnosis for this admission?: Yes - Additional Information Resuscitation Status: Full Code Discharge Diet: Diabetic Discharge Activity: Activity As Tolerated Prescriptions: Vancomycin/0.9 % Sod Chloride [Vanco 1 Gram/250 ml-0.9% NaCl] 1 gm IV Q12H 14 Days #28 plast..bag Home Medications: Amlodipine Besylate [Norvasc 10 mg Tablet] 10 mg PO DAILY 12/23/17 Atorvastatin Calcium [Lipitor 80 mg Tablet] 80 mg PO QHS 12/23/17 Dexamethasone [Decadron 4 Mg Tablet] 8 mg PO BID MDD SEE PATIENT COMMENTS Esomeprazole Mag Trihydrate [Nexium] 40 mg PO ACBRKFST 12/23/17 Ferrous Sulfate [Feosol 325 mg Tablet] 325 mg PO DAILY 12/23/17 Gabapentin [Neurontin 300 mg Capsule] 300 mg PO Q8 12/23/17 Glyburide [Diabeta 5 mg Tablet] 5 mg PO DAILY 12/23/17 Insulin Glargine,Hum.rec.anlog [Lantus Solostar] 28 unit SQ QHS 12/23/17 Ondansetron [Zofran Odt 4 mg Tablet] 8 mg PO Q6HP PRN 12/23/17 Prednisone [Deltasone 5 mg Tablet] 5 mg PO WBRKFST 12/23/17 Prochlorperazine Maleate [Compazine 10 mg Tablet] 10 mg PO Q6HP PRN 12/23/17 Sennosides/Docusate 8.6-50 mg [Senna Plus Tablet] 1 tab PO DAILY 12/23/17 Tramadol HCl [Ultram 50 mg Tablet] 50 mg PO Q6HP PRN 12/23/17 Vancomycin/0.9 % Sod Chloride [Vanco 1 Gram/250 ml-0.9% NaCl] 1 gm IV Q12H 14 Days #28 plast..bag 01/02/18 History of Present Illness Patient complains of: shaking chills weakness History of Present Illness: CINTHIA ROSS is a 57 year old female who presents to the emergency room with fever and shaking chills and weakness. Her past medical history is significant for stage II breast cancer for which she is undergoing treatment in [place]. The patient is feeling quite poorly and this an extremely poor historian however it appears her past medical history is significant for a transplanted kidney in 1998, diabetes mellitus, hypertension and hyperlipidemia. She is chronically immunosuppressed due to her transplanted kidney. She reports that s she just started a new chemotherapy a couple of weeks ago and that she is felt extremely poorly since that time. She has had increasing weakness. She has poor p.o. intake and has not been eating or drinking. She states that she has a dry cough. She has had nausea but no vomiting. She has some mild stomach pain and she is having dysuria and thinks she may have a urinary tract infection. Hospital Course Hospital Course: (1) Breast cancer Qualifiers: Breast location: unspecified site of breast Laterality: unspecified laterality Is this a current diagnosis for this admission?: Yes (2) CKD (chronic kidney disease) stage 3, GFR 30-59 ml/min Is this a current diagnosis for this admission?: Yes patient's renal function was Stable during the hospital stay she was evaluated by nephrology and was found to be Candidate for PICC line at discharge (3) Diabetes mellitus Blood sugars where well controlled during her hospital stay (4) Hypertension Blood pressure was controlled during her stay (5) Staphylococcus epidermidis bacteremia staph was resistant to penicillin And vancomycin was initiated Patient will be discharged on vancomycin IV to complete a 14 day course of antibiotics An echocardiogram was performed there was no evidence of endocarditis; Physical Exam Vital Signs: Temp Pulse Resp BP Pulse Ox 98.8 F 105 H 17 165/70 H 97 01/02/18 11:19 01/02/18 14:00 01/02/18 11:19 01/02/18 11:19 01/02/18 11:19 Intake & Output 01/01/18 01/02/18 01/03/18 00:59 00:59 00:59 Intake Total 1540 1130 1205 Output Total 60 Balance 1540 1070 1205 Weight 90.7 kg 85.9 kg General appearance: PRESENT: no acute distress, morbidly obese Head exam: PRESENT: atraumatic, normocephalic Eye exam: PRESENT: EOMI, PERRLA Ear exam: PRESENT: normal external ear exam Mouth exam: PRESENT: moist, neck supple Neck exam: PRESENT: full ROM. ABSENT: JVD, lymphadenopathy Respiratory exam: PRESENT: clear to auscultation niki Cardiovascular exam: PRESENT: RRR. Grade 3/6 systolic murmur Vascular exam: PRESENT: normal capillary refill Extremities exam: PRESENT: full ROM. ABSENT: clubbing, pedal edema Musculoskeletal exam: PRESENT: ambulatory. ABSENT: full ROM Neurological exam: PRESENT: alert, awake, oriented to person, oriented to place , oriented to time, oriented to situation, CN II-XII grossly intact Results Laboratory Results: 01/02/18 09:58 01/02/18 09:58 01/02/18 01/02/18 09:58 09:58 WBC 7.4 RBC 2.93 L Hgb 8.7 L Hct 26.1 L MCV 89 MCH 29.6 MCHC 33.1 RDW 18.7 H Plt Count 271 Seg Neutrophils % 67.7 Lymphocytes % 18.6 Monocytes % 12.5 Eosinophils % 0.6 Basophils % 0.6 Absolute Neutrophils 5.0 Absolute Lymphocytes 1.4 Absolute Monocytes 0.9 Absolute Eosinophils 0.0 Absolute Basophils 0.0 Creatinine 1.08 Est GFR ( Amer) > 60 Est GFR (Non-Af Amer) 52 L 12/26/17 12/28/17 11:29 06:00 NT-Pro-B Natriuret Pep 513 1160 H Impressions: Chest X-Ray 12/26/17 00:00 IMPRESSION: NO SIGNIFICANT RADIOGRAPHIC FINDING IN THE CHEST. Lung Scan-VQ NM 12/26/17 00:00 IMPRESSION: NORMAL PERFUSION LUNG SCAN. Guidance Fluoroscopy 01/02/18 00:00 IMPRESSION: SUCCESSFUL PLACEMENT OF A 5 FR DUAL LUMEN 35 CM PICC IN THE RIGHT BASILIC VEIN. Interventional Vascular Procedure 01/02/18 00:00 IMPRESSION: SUCCESSFUL PLACEMENT OF A 5 FR DUAL LUMEN 35 CM PICC IN THE RIGHT BASILIC VEIN. PICC Line Insertion 01/02/18 00:00 IMPRESSION: SUCCESSFUL PLACEMENT OF A 5 FR DUAL LUMEN 35 CM PICC IN THE RIGHT BASILIC VEIN. Plan Discharge Plan: Patient was discharged home with home health and home infusion on vancomycin IV for 2 weeks Time Spent: Greater than 30 Minutes
[2018-01-02 16:53] VITALS: BP 158/64
[2018-01-02] MEDS ORDERED: VANCOMYCIN HCL 750 MG in DEXTROSE 5%-WATER 250 ML IV SCH (22:00)
[2018-01-03] MEDS ORDERED: AMLODIPINE BESYLATE 10 MG TABLET PO SCH (10:00)
--- NOTE | 2018-03-19 07:45 | Progress Note ---
Provider Note Provider Note: Patient is a 58 year old female S/P transplanted kidney immunosuppressed presented with sepsis sepsis was secondary to UTI and infected portocath line. staph epidermidis was isolated from culture drawn from port-o-cath line. it was a confirmed diagnosis. infection was present on admission .
== END 2018-01-02 17:34 | disposition home health service (06) | DRG 314 ==
LOC: ER 11:58 → EH 15:49 → UNDOADMIN 15:49 → 3S 23:59
PROVIDERS: ADMIT Internal Medicine; ATTEND Internal Medicine
PROC: 30233N1 Transfusion of Nonautologous Red Blood Cells into Peripheral Vein, Percutaneous Approach (ICD-10-PCS; 2017-12-25)
PROC: 0JPT0WZ Removal of Totally Implantable Vascular Access Device from Trunk Subcutaneous Tissue and Fascia, Open Approach (ICD-10-PCS; principal; 2018-01-01 10:15)
PROC: 02HV33Z Insertion of Infusion Device into Superior Vena Cava, Percutaneous Approach (ICD-10-PCS; 2018-01-02)
PROC: B5181ZA Fluoroscopy of Superior Vena Cava using Low Osmolar Contrast, Guidance (ICD-10-PCS; 2018-01-02)
PROC: B548ZZA Ultrasonography of Superior Vena Cava, Guidance (ICD-10-PCS; 2018-01-02)
DX: T80.211A Bloodstream infection due to central venous catheter, initial encounter (principal); A41.9 Sepsis, unspecified organism; N30.01 Acute cystitis with hematuria; B37.0 Candidal stomatitis; Z94.0 Kidney transplant status; C50.919 Malignant neoplasm of unspecified site of unspecified female breast; D64.81 Anemia due to antineoplastic chemotherapy; E11.9 Type 2 diabetes mellitus without complications; E11.22 Type 2 diabetes mellitus with diabetic chronic kidney disease; N18.3 Chronic kidney disease, stage 3 (moderate); B96.20 Unspecified Escherichia coli [E. coli] as the cause of diseases classified elsewhere; B96.1 Klebsiella pneumoniae [K. pneumoniae] as the cause of diseases classified elsewhere; R19.7 Diarrhea, unspecified; E83.42 Hypomagnesemia; Z16.11 Resistance to penicillins; B95.61 Methicillin susceptible Staphylococcus aureus infection as the cause of diseases classified elsewhere; E78.5 Hyperlipidemia, unspecified; I12.9 Hypertensive chronic kidney disease with stage 1 through stage 4 chronic kidney disease, or unspecified chronic kidney disease; R00.0 Tachycardia, unspecified; E11.65 Type 2 diabetes mellitus with hyperglycemia; Z88.2 Allergy status to sulfonamides; Z79.4 Long term (current) use of insulin
CPT/HCPCS: 36415; 36430; 36569; 400; 71045; 71046; 76937; 77001; 78580; 80048; 80053; 80076; 80202; 81001; 82565; 82803; 82962; 83036; 83605; 83735; 83880; 84100; 85025; 85027; 85610; 86850; 86900; 86901; 86920; 87040; 87070; 87077; 87086; 87088; 87186; 93005; 93010; 93306; 96361; 96374; 99285; A9540; J0690; J0692; J0696; J1642; J1650; J1815; J1940; J2250; J2405; J2543; J2704; J3010; J3370; J3475; J3490; J7030; J7040; J7060; J7500; J7507; J7512; P9016; Q9969

== ENCOUNTER 2018-01-08 12:29 | Emergency (ER) | payer BC ==
--- NOTE | 2018-01-08 14:26 | RADIOLOGY REPORT (SQ) ---
EXAM DESCRIPTION: CHEST SINGLE VIEW COMPLETED DATE/TIME: 01/08/2018 2:17 pm REASON FOR STUDY: PICC line placement COMPARISON: 12/26/2017 EXAM PARAMETERS: NUMBER OF VIEWS: One view. TECHNIQUE: Single frontal radiographic view of the chest acquired. RADIATION DOSE: NA LIMITATIONS: None. FINDINGS: LUNGS AND PLEURA: No opacities, masses or pneumothorax. No pleural effusion. MEDIASTINUM AND HILAR STRUCTURES: No masses. Contour normal. HEART AND VASCULAR STRUCTURES: Heart normal in size. Normal vasculature. BONES: No acute findings. HARDWARE: PICC line is identified with its tip at the level of proximal right subclavian vein or supe rior portion of the superior vena cava OTHER: No other significant finding. IMPRESSION: PICC line as noted above. No pneumothorax is seen. Other findings as noted above TECHNICAL DOCUMENTATION: JOB ID: [id number] [employer]- All Rights Reserved
--- NOTE | 2018-01-08 15:17 | ER Document Report ---
ED General - General Chief Complaint: Other Stated Complaint: PICC LINE Time Seen by Provider: 01/08/18 13:49 TRAVEL OUTSIDE OF THE [place] IN LAST 30 DAYS: No - HPI Patient complains to provider of: PICC line issue Notes: Patient coming in with a issue with her PICC line states that home health care nurse cannot draw any blood. Patient was evaluated by radiology team and deemed need for any PICC line replacement is that her PICC line originally was called. This was performed upon my evaluation the patient patient had already had a PICC line replaced no difficulty resting comfortably relaxed possibly be discharged home. - Related Data Allergies/Adverse Reactions: Sulfa (Sulfonamide Antibiotics) Adverse Reaction (Verified 12/23/17 12:00) Past Medical History - Social History Smoking Status: Unknown if Ever Smoked Family History: Reviewed & Not Pertinent Patient has suicidal ideation: No Patient has homicidal ideation: No - Past Medical History Cardiac Medical History: Reports: Hx Hypertension Endocrine Medical History: Reports: Hx Diabetes Mellitus Type 2 Renal/ Medical History: Denies: Hx Peritoneal Dialysis Malignancy Medical History: Reports: Hx Breast Cancer - chemo 2 weeks ago Past Surgical History: Reports: Other - port Review of Systems - Review of Systems Constitutional: Other - PICC line tissue EENT: No symptoms reported Cardiovascular: No symptoms reported Respiratory: No symptoms reported Gastrointestinal: No symptoms reported Genitourinary: No symptoms reported Female Genitourinary: No symptoms reported Musculoskeletal: No symptoms reported Skin: No symptoms reported Hematologic/Lymphatic: No symptoms reported Neurological/Psychological: No symptoms reported Physical Exam - Vital signs Vitals: Temp Pulse Resp BP Pulse Ox 99.5 F 111 H 20 181/84 H 97 01/08/18 13:10 01/08/18 13:10 01/08/18 13:10 01/08/18 13:10 01/08/18 13:10 Interpretation: Normal - General General appearance: Appears well, Alert - HEENT Head: Normocephalic, Atraumatic Eyes: Normal Pupils: PERRL - Respiratory Respiratory status: No respiratory distress - Abdominal Inspection: Normal - He eventually arrived Distension: No distension - Extremities General upper extremity: Normal inspection, Nontender, Other - PICC line right arm General lower extremity: Normal inspection, Nontender - Neurological Neuro grossly intact: Yes Cognition: Normal Orientation: AAOx4 Delfin Coma Scale Eye Opening: Spontaneous Delfin Coma Scale Verbal: Oriented Delfin Coma Scale Motor: Obeys Commands [place] Coma Scale Total: 15 Sensory: Normal - Psychological Associated symptoms: Normal affect, Normal mood - Skin Skin Temperature: Warm Skin Moisture: Dry Skin Color: Normal Course - Re-evaluation Re-evalutation: 01/08/18 15:37 PICC line looks to be in good position I did confirm wtih radiologist PICC line in good position no comp occasions patient will be discharged - Vital Signs Vital signs: Temp Pulse Resp BP Pulse Ox 98.0 F 96 16 144/59 H 95 01/08/18 15:19 01/08/18 15:19 01/08/18 15:19 01/08/18 15:19 01/08/18 15:19 Discharge - Discharge Clinical Impression: picc line replacement Condition: Good Disposition: HOME, SELF-CARE Additional Instructions: Please follow-up with your primary care physician as needed. Return to primary care physician's office or return to ER if you develop further PICC line issues.
[2018-01-08 15:21] VITALS: BP 144/59
--- NOTE | 2018-01-08 15:39 | RADIOLOGY REPORT (SQ) ---
EXAM DESCRIPTION: PICC LINE REPLACEMENT; FLUORO/CV PLACEMENT COMPLETED DATE/TIME: 01/08/2018 3:14 pm REASON FOR STUDY: right arm dual lumen; PICC REPLACEMENT, PICC NOT FLUSH COMPARISON: PICC catheter placement 01/02/2018 FLUOROSCOPY TIME: 39 seconds 1 digital radiographic images saved to PACS. TECHNIQUE: Fluoroscopic guided PICC replacement. LIMITATIONS: None. PROCEDURE: After written consent and assessment were obtained, the patient was brought into the fluo roscopy room and place supine on the table. The right arm an existing PICC was prepped and draped i n a sterile fashion. The entry site was anesthetized with 3.5 mL of 1% lidocaine. A .018 guide wire was then inserted through the existing PICC and into the venous system. The old catheter was then rem andrey and a new catheter measuring 37 cm was advanced over the wire and into the venous system. The w beverly was then removed and the catheter was adhered to the patients arm with a stat lock. The catheter was then aspirated and flushed and a sterile bandage was placed over the access site. A fluoroscopic spot image was saved to PACS confirming the catheter tip within the superior vena cava. IMPRESSION: SUCCESSFUL OVER THE WIRE REPLACEMENT OF AN OLD PICC FOR A NEW ONE THAT IS 5 FR DUAL LUME N 44 CM PICC IN THE RIGHT ARM. COMMENT: Patient medication list reviewed: Yes- Quality ID# 130:Eligible professional attests to doc umenting in the medical record they obtained, updated, or reviewed the patient's current medications. . Quality ID 145: Final reports for procedures using fluoroscopy that document radiation exposure lennie shahriar, or exposure time and number of fluorographic images (if radiation exposure indices are not avail able) Quality ID #76: The patient was prepped and draped using maximum sterile barrier technique including cap, mask, sterile gown, sterile gloves, a large sterile sheet, hand hygiene, and 2% Chlorhexidine fo r cutaneous antisepsis. When ultrasound is used, sterile ultrasound techniques are followed requiring sterile gel and sterile probes. TECHNICAL DOCUMENTATION: JOB ID: [id number] [employer]- All Rights Reserved
== END 2018-01-08 15:27 | disposition home or self-care (01) ==
LOC: ER 12:29
DX: Z45.2 Encounter for adjustment and management of vascular access device (principal); I10 Essential (primary) hypertension; E11.9 Type 2 diabetes mellitus without complications; C50.919 Malignant neoplasm of unspecified site of unspecified female breast; Z88.2 Allergy status to sulfonamides
CPT/HCPCS: 99284; 71045; 36584; 77001; J1642

== ENCOUNTER → 2018-01-10 | Outpatient (CLI) | payer BC ==
[2018-01-10 18:30] LABS: ALANINE AMINOTRANSFERASE 23 U/L (9-52); ALBUMIN 3.3 g/dL (3.5-5.0); ALKALINE PHOSPHATASE 68 U/L (38-126); ANION GAP 9 (5-19); ASPARTATE AMINO TRANSFERASE 16 U/L (14-36); BILIRUBIN,DIRECT 0.2 mg/dL (0.0-0.4); BILIRUBIN,TOTAL 0.8 mg/dL (0.2-1.3); BLOOD UREA NITROGEN 19 mg/dL (7-20); CALCIUM 9.2 mg/dL (8.4-10.2); CARBON DIOXIDE 25 mmol/L (22-30); CHLORIDE 104 mmol/L (98-107); GLUCOSE 242 mg/dL (75-110); POTASSIUM 5.2 mmol/L (3.6-5.0); SODIUM 138.3 mmol/L (137-145); TOTAL PROTEIN 5.3 g/dL (6.3-8.2)
[2018-01-10 18:33] LABS: VANCOMYCIN,TROUGH 25.4 ug/mL (5.0-20.0)
[2018-01-10 18:41] LABS: ABSOLUTE EOSINOPHILS # (AUTO) 0.2 10^3/uL (0.0-0.6); ABSOLUTE LYMPHOCYTES (AUTO) 1.6 10^3/uL (0.5-4.7); ABSOLUTE MONOCYTES (AUTO) 0.8 10^3/uL (0.1-1.4); ABSOLUTE NEUT (AUTO) 5.9 10^3/uL (1.7-8.2); BASOPHILS % (AUTO) 0.5 % (0-2); EOSINOPHILS % (AUTO) 2.7 % (0-6); HEMATOCRIT 24.3 % (36.0-47.0); LYMPHOCYTES % (AUTO) 18.8 % (13-45); MEAN CORPUSCULAR HEMOGLOBIN 29.4 pg (27.0-33.4); MEAN CORPUSCULAR VOLUME 89 fl (80-97); PLATELET COUNT 351 10^3/uL (150-450); RED BLOOD COUNT 2.73 10^6/uL (3.72-5.28); RED CELL DISTRIBUTION WIDTH 18.4 % (11.5-14.0); TOTAL CELLS COUNTED % (AUTO) 100 %; WHITE BLOOD COUNT 8.5 10^3/uL (4.0-10.5)
[2018-01-10 19:19] LABS: ERYTHROCYTE SEDIMENTATION RATE 83 mm/hr (0-30)
== END ==
LOC: WELLCARE 18:06
PROVIDERS: ATTEND Family Medicine
DX: R78.81 Bacteremia (principal)
CPT/HCPCS: 80053; 80202; 85025; 85652

== ENCOUNTER 2018-02-10 11:14 | Emergency (ER) | payer BC ==
[2018-02-10] MEDS ORDERED: INSULIN REG, HUMAN 100 UNIT/ML 3 ML VIAL (PYX) IV ONE (13:02)
[2018-02-10] MEDS ORDERED: NORMAL SALINE 1000 ML 1,000 ML IV ONE ×2 (13:02→15:36)
--- NOTE | 2018-02-10 13:03 | ER Document Report ---
ED Medical Screen (RME) - General Chief Complaint: High Blood Sugar Stated Complaint: BLOOD SUGAR CONCERNS Time Seen by Provider: 02/10/18 13:02 Notes: Patient states she is on scheduled insulin but no sliding scale. She also takes oral diabetic medications. She states for several weeks her sugars have been high and she has been unable to control them. She states she came to the hospital today because she needs to get the blood sugars under control for a surgery next week. TRAVEL OUTSIDE OF THE [place] IN LAST 30 DAYS: No - Related Data Allergies/Adverse Reactions: Sulfa (Sulfonamide Antibiotics) Adverse Reaction (Verified 02/10/18 12:54) Past Medical History - Social History Chew tobacco use (# tins/day): No Frequency of alcohol use: None Drug Abuse: None - Past Medical History Cardiac Medical History: Reports: Hx Hypercholesterolemia, Hx Hypertension Endocrine Medical History: Reports: Hx Diabetes Mellitus Type 2 Renal/ Medical History: Denies: Hx Peritoneal Dialysis Malignancy Medical History: Reports: Hx Breast Cancer - chemo 2 weeks ago Past Surgical History: Reports: Hx Hysterectomy, Hx Kidney (Renal Surgery) - left kidney transplant, Other - port - Immunizations History of Influenza Vaccine for 09/2017 - 01/2018 Season: Yes Physical Exam - Vital signs Vitals: Temp Pulse Resp BP Pulse Ox 97.7 F 92 17 171/60 H 100 02/10/18 11:33 02/10/18 11:33 02/10/18 11:33 02/10/18 11:33 02/10/18 11:33 Course - Vital Signs Vital signs: Temp Pulse Resp BP Pulse Ox 97.7 F 92 17 171/60 H 100 02/10/18 11:33 02/10/18 11:33 02/10/18 11:33 02/10/18 11:33 02/10/18 11:33
[2018-02-10 13:49] LABS: ALANINE AMINOTRANSFERASE 35 U/L (9-52); ALBUMIN 3.8 g/dL (3.5-5.0); ALKALINE PHOSPHATASE 80 U/L (38-126); ANION GAP 10 (5-19); ASPARTATE AMINO TRANSFERASE 18 U/L (14-36); BILIRUBIN,DIRECT 0.4 mg/dL (0.0-0.4); BILIRUBIN,TOTAL 0.8 mg/dL (0.2-1.3); BLOOD UREA NITROGEN 50 mg/dL (7-20); CALCIUM 10.2 mg/dL (8.4-10.2); CARBON DIOXIDE 24 mmol/L (22-30); CHLORIDE 102 mmol/L (98-107); POTASSIUM 4.9 mmol/L (3.6-5.0); SODIUM 136.3 mmol/L (137-145); TOTAL PROTEIN 6.3 g/dL (6.3-8.2)
[2018-02-10 13:59] LABS: GLUCOSE 495 mg/dL (75-110)
[2018-02-10 14:10] LABS: APPEARANCE,URINE CLEAR; BILIRUBIN,URINE NEGATIVE (NEGATIVE); COLOR,URINE YELLOW; GLUCOSE, URINE >=500 mg/dL (NEGATIVE); KETONES,URINE NEGATIVE (NEGATIVE); LEUKOCYTE ESTERASE,URINE TRACE (NEGATIVE); NITRITE,URINE NEGATIVE (NEGATIVE); PROTEIN,URINE 100 mg/dL (NEGATIVE); URINE SPECIFIC GRAVITY 1.022; UROBILINOGEN,URINE NEGATIVE mg/dL (<2.0)
[2018-02-10 14:37] LABS: ABSOLUTE BASOPHILS # (AUTO) 0.1 10^3/uL (0.0-0.2); ABSOLUTE LYMPHOCYTES (AUTO) 0.7 10^3/uL (0.5-4.7); ABSOLUTE MONOCYTES (AUTO) 0.5 10^3/uL (0.1-1.4); ABSOLUTE NEUT (AUTO) 9.3 10^3/uL (1.7-8.2); BASOPHILS % (AUTO) 0.6 % (0-2); EOSINOPHILS % (AUTO) 0.1 % (0-6); HEMATOCRIT 33.8 % (36.0-47.0); HEMOGLOBIN 11.2 g/dL (12.0-15.5); LYMPHOCYTES % (AUTO) 6.2 % (13-45); MEAN CORPUSCULAR HGB CONC 33.2 g/dL (32.0-36.0); MEAN CORPUSCULAR VOLUME 87 fl (80-97); MONOCYTES % (AUTO) 4.7 % (3-13); PLATELET COUNT 220 10^3/uL (150-450); RED BLOOD COUNT 3.87 10^6/uL (3.72-5.28); RED CELL DISTRIBUTION WIDTH 18.1 % (11.5-14.0); SEGMENTED NEUTROPHILS % (AUTO) 88.4 % (42-78); TOTAL CELLS COUNTED % (AUTO) 100 %; WHITE BLOOD COUNT 10.5 10^3/uL (4.0-10.5)
--- NOTE | 2018-02-10 16:03 | ER Document Report ---
ED General - General Chief Complaint: High Blood Sugar Stated Complaint: BLOOD SUGAR CONCERNS Time Seen by Provider: 02/10/18 13:02 TRAVEL OUTSIDE OF THE [place] IN LAST 30 DAYS: No - HPI Notes: Patient is a 57-year-old female with a history of type 1 diabetes, kidney transplant who presents to the ED complaining of elevated glucose readings. Patient states that her symptoms have been elevated over the last 1-2 days. Patient did not address this with her PCM in [place]. Patient states that she has been trying to eat a healthy diet, but has not been exercising. She is on 80 units of Lantus in the evenings. She does not take any other medicines for her sugar. Patient states that she has otherwise felt well. No other concerns or complaints at this time. Denies any headache, fever, neck pain, URI , sore throat, chest pain, palpitations, syncope, cough, shortness of breath, wheeze, dyspnea, abdominal pain, nausea/vomiting/diarrhea, urinary retention, dysuria, hematuria, numbness/tingling, saddle anesthesia, muscle paralysis/ weakness, or rash. - Related Data Allergies/Adverse Reactions: Sulfa (Sulfonamide Antibiotics) Adverse Reaction (Verified 02/10/18 12:54) Past Medical History - Social History Smoking Status: Former Smoker Chew tobacco use (# tins/day): No Frequency of alcohol use: None Drug Abuse: None Family History: Reviewed & Not Pertinent Patient has suicidal ideation: No Patient has homicidal ideation: No - Past Medical History Cardiac Medical History: Reports: Hx Hypercholesterolemia, Hx Hypertension Endocrine Medical History: Reports: Hx Diabetes Mellitus Type 2 Renal/ Medical History: Denies: Hx Peritoneal Dialysis Malignancy Medical History: Reports: Hx Breast Cancer - chemo 2 weeks ago Past Surgical History: Reports: Hx Hysterectomy, Hx Kidney (Renal Surgery) - left kidney transplant, Other - port Review of Systems - Review of Systems -: Yes All other systems reviewed and negative Physical Exam - Vital signs Vitals: Temp Pulse Resp BP Pulse Ox 97.7 F 92 17 171/60 H 100 02/10/18 11:33 02/10/18 11:33 02/10/18 11:33 02/10/18 11:33 02/10/18 11:33 - Notes Notes: PHYSICAL EXAMINATION: GENERAL: Well-appearing, well-nourished and in no acute distress. LUNGS: Breath sounds clear to auscultation bilaterally and equal. No wheezes rales or rhonchi. HEART: Regular rate and rhythm without murmurs, rubs, gallops. ABDOMEN: Soft, nontender, nondistended abdomen. No guarding, no rebound. No masses appreciated. Normal bowel sounds present. No CVA tenderness bilaterally. Extremities: No cyanosis, clubbing, or edema b/l. Peripheral pulses 2+. Capillary refill less than 3 seconds. NEUROLOGICAL: Cranial nerves grossly intact. Normal speech, normal gait. Normal sensory, motor exams PSYCH: Normal mood, normal affect. SKIN: Warm, Dry, normal turgor, no rashes or lesions noted. Course - Re-evaluation Re-evalutation: 02/10/18 16:10 Patient is an afebrile, well-hydrated, 57-year-old female who presents to the ED with elevated blood glucose. Vitals are acceptable. PE is otherwise unremarkable. CBC and urinalysis were unremarkable for any acute pathology. CMP did not show any anion gap, but did have glucose levels at 495 with an Accu- Chek at 520. Patient was given 1 L of fluid as well as 10 units of insulin. Upon recheck of her Accu-Chek, glucose decreased to 230's. Patient appears well and is tolerating food without any difficulties. Low suspicion for any DKA , severe dehydration, or other systemic emergent condition at this time. Patient to continue monitoring glucose twice daily and keep a log as well as taking her insulin as directed. Recheck with your PCM in 1-2 days as you have your procedure on Saturday for your Breast cancer. Return to the ED with any worsening/concerning symptoms otherwise as reviewed discharge. Patient is in agreement. - Vital Signs Vital signs: Temp Pulse Resp BP Pulse Ox 97.7 F 92 17 171/60 H 100 02/10/18 11:33 02/10/18 11:33 02/10/18 11:33 02/10/18 11:33 02/10/18 11:33 - Laboratory Result Diagrams: 02/10/18 13:20 02/10/18 13:20 Laboratory results interpreted by me: 02/10/18 02/10/18 02/10/18 11:37 13:20 13:20 Hgb 11.2 L Hct 33.8 L RDW 18.1 H Seg Neutrophils % 88.4 H Lymphocytes % 6.2 L Absolute Neutrophils 9.3 H Sodium 136.3 L BUN 50 H Creatinine 1.31 H Est GFR ( Amer) 50 L Est GFR (Non-Af Amer) 42 L Glucose 495 H* POC Glucose 520 H* Urine Protein Urine Glucose (UA) Ur Leukocyte Esterase 02/10/18 13:20 Hgb Hct RDW Seg Neutrophils % Lymphocytes % Absolute Neutrophils Sodium BUN Creatinine Est GFR ( Amer) Est GFR (Non-Af Amer) Glucose POC Glucose Urine Protein 100 H Urine Glucose (UA) >=500 H Ur Leukocyte Esterase TRACE H Discharge - Discharge Clinical Impression: Elevated glucose Condition: Stable Disposition: HOME, SELF-CARE Additional Instructions: Maintain adequate fluid and food intake Take home medications as directed Low carb/sugar diet Exercise regularly Weight control Monitor blood glucose twice daily and keep a log Monitor symptoms for any acute changes Recheck with your PCM in 1-2 days Consider a follow-up with endocrinology Return to the ED with any worsening symptoms and/or development of fever, headache, chest pain, palpitations, syncope, shortness of breath, trouble breathing, abdominal pain, n/v/d, blood in stool/urine, loss of control of bowel /bladder, urinary retention, muscle weakness/paralysis, numbness/tingling, or other worsening symptoms that are concerning to you. Forms: Elevated Blood Pressure Referrals: PEDRO SANFORD MD [NO LOCAL MD] - Follow up as needed
[2018-02-10 17:14] VITALS: BP 151/78
== END 2018-02-10 17:14 | disposition home or self-care (01) ==
LOC: ER 11:14
DX: E10.65 Type 1 diabetes mellitus with hyperglycemia (principal); C50.919 Malignant neoplasm of unspecified site of unspecified female breast; I10 Essential (primary) hypertension; Z94.0 Kidney transplant status; Z87.891 Personal history of nicotine dependence; Z88.2 Allergy status to sulfonamides
CPT/HCPCS: 99283; 36415; 82962; 85025; 80053; 81001; J1815; J7030

== ENCOUNTER 2018-11-21 17:21 | Emergency (ER) | payer BC ==
--- NOTE | 2018-11-21 17:46 | ER Document Report ---
ED Medical Screen (RME) - General Chief Complaint: Chest Pain Stated Complaint: CHEST PAIN Time Seen by Provider: 11/21/18 17:34 Notes: This 58-year-old female patient was instructed to come the emergency room by her doctor. She has past history of breast cancer, renal transplant, insulin- dependent diabetes. She is on prednisone 5 mg a day as her only immunosuppressant. She did have a cardiac ablation on 11/06/2018, since then she has had intermittent chest pains with shortness of breath with his getting worse. She does have increased dyspnea on exertion. She is scheduled for a cardiac echo on 11/26/2018. Sitting in the chair the patient takes fairly frequent deep breaths at rest. She states the breathing is worse with exertion. I have greeted and performed a rapid initial assessment of this patient. A comprehensive ED assessment and evaluation of the patient, analysis of test results and completion of the medical decision making process will be conducted by additional ED providers. TRAVEL OUTSIDE OF THE [place] IN LAST 30 DAYS: No - Related Data Allergies/Adverse Reactions: Sulfa (Sulfonamide Antibiotics) Adverse Reaction (Verified 02/10/18 12:54) Past Medical History - Social History Chew tobacco use (# tins/day): No Frequency of alcohol use: None Drug Abuse: None - Past Medical History Cardiac Medical History: Reports: Hx Hypercholesterolemia, Hx Hypertension Endocrine Medical History: Reports: Hx Diabetes Mellitus Type 2 Renal/ Medical History: Denies: Hx Peritoneal Dialysis Malignancy Medical History: Reports: Hx Breast Cancer - chemo 2 weeks ago Past Surgical History: Reports: Hx Cardiac Surgery - Cardiac ablation 2017, Hx Hysterectomy, Hx Kidney (Renal Surgery) - left kidney transplant, Other - port - Immunizations History of Influenza Vaccine for 09/2017 - 01/2018 Season: Yes Physical Exam - Vital signs Vitals: Temp Pulse Resp BP Pulse Ox 98.1 F 75 18 185/64 H 100 11/21/18 17:38 11/21/18 17:38 11/21/18 17:38 11/21/18 17:38 11/21/18 17:38 Course - Vital Signs Vital signs: Temp Pulse Resp BP Pulse Ox 98.1 F 75 18 185/64 H 100 11/21/18 17:38 11/21/18 17:38 11/21/18 17:38 11/21/18 17:38 11/21/18 17:38
--- NOTE | 2018-11-21 18:47 | RADIOLOGY REPORT (SQ) ---
EXAM DESCRIPTION: CHEST 2 VIEWS COMPLETED DATE/TIME: 11/21/2018 6:24 pm REASON FOR STUDY: Dyspnea and chest pain following cardiac ablation COMPARISON: 12/26/2017 EXAM PARAMETERS: NUMBER OF VIEWS: two views TECHNIQUE: Digital Frontal and Lateral radiographic views of the chest acquired. RADIATION DOSE: NA LIMITATIONS: none FINDINGS: LUNGS AND PLEURA: No opacities, masses or pneumothorax. No pleural effusion. MEDIASTINUM AND HILAR STRUCTURES: No masses or contour abnormalities. HEART AND VASCULAR STRUCTURES: Heart normal size. No evidence for failure. BONES: No acute findings. HARDWARE: Injection port on the right. OTHER: No other significant finding. IMPRESSION: NO ACUTE RADIOGRAPHIC FINDING IN THE CHEST. TECHNICAL DOCUMENTATION: JOB ID: [id number] [employer]- All Rights Reserved Reading location - IP/workstation name: [email or web address]
[2018-11-21 19:31] LABS: ABSOLUTE LYMPHOCYTES (AUTO) 1.7 10^3/uL (0.5-4.7); ABSOLUTE MONOCYTES (AUTO) 0.7 10^3/uL (0.1-1.4); ABSOLUTE NEUT (AUTO) 4.3 10^3/uL (1.7-8.2); BASOPHILS % (AUTO) 0.5 % (0-2); EOSINOPHILS % (AUTO) 0.6 % (0-6); HEMOGLOBIN 10.4 g/dL (12.0-15.5); LYMPHOCYTES % (AUTO) 24.9 % (13-45); MEAN CORPUSCULAR HEMOGLOBIN 28.3 pg (27.0-33.4); MEAN CORPUSCULAR HGB CONC 33.6 g/dL (32.0-36.0); MEAN CORPUSCULAR VOLUME 84 fl (80-97); MONOCYTES % (AUTO) 9.9 % (3-13); PLATELET COUNT 245 10^3/uL (150-450); RED BLOOD COUNT 3.68 10^6/uL (3.72-5.28); RED CELL DISTRIBUTION WIDTH 17.9 % (11.5-14.0); SEGMENTED NEUTROPHILS % (AUTO) 64.1 % (42-78); TOTAL CELLS COUNTED % (AUTO) 100 %; WHITE BLOOD COUNT 6.6 10^3/uL (4.0-10.5)
[2018-11-21 19:36] LABS: APPEARANCE,URINE SLIGHTLY-CLOUDY; BILIRUBIN,URINE NEGATIVE (NEGATIVE); COLOR,URINE YELLOW; GLUCOSE, URINE >=500 mg/dL (NEGATIVE); KETONES,URINE NEGATIVE (NEGATIVE); LEUKOCYTE ESTERASE,URINE NEGATIVE (NEGATIVE); NITRITE,URINE NEGATIVE (NEGATIVE); PROTEIN,URINE >=500 mg/dL (NEGATIVE); URINE SPECIFIC GRAVITY 1.021; UROBILINOGEN,URINE NEGATIVE mg/dL (<2.0)
[2018-11-21 19:51] LABS: BLOOD UREA NITROGEN 33 mg/dL (7-20); CALCIUM 9.6 mg/dL (8.4-10.2); GLUCOSE 292 mg/dL (75-110)
[2018-11-21 19:52] LABS: ALANINE AMINOTRANSFERASE 37 U/L (9-52); ALBUMIN 3.2 g/dL (3.5-5.0); ALKALINE PHOSPHATASE 225 U/L (38-126); ANION GAP 5 (5-19); ASPARTATE AMINO TRANSFERASE 45 U/L (14-36); BILIRUBIN,DIRECT 0.4 mg/dL (0.0-0.4); BILIRUBIN,TOTAL 0.8 mg/dL (0.2-1.3); CARBON DIOXIDE 28 mmol/L (22-30); CHLORIDE 105 mmol/L (98-107); CREATINE KINASE 97 U/L (30-135); POTASSIUM 4.5 mmol/L (3.6-5.0); SODIUM 138.3 mmol/L (137-145); TOTAL PROTEIN 5.9 g/dL (6.3-8.2)
[2018-11-21 20:09] LABS: CREATINE KINASE MB 0.68 ng/mL (<4.55); NT PRO BNP 4540 pg/mL (5-900)
[2018-11-21 20:10] LABS: TROPONIN I < 0.012 ng/mL
--- NOTE | 2018-11-21 20:13 | ER Document Report ---
ED General - General Chief Complaint: Chest Pain Stated Complaint: CHEST PAIN Time Seen by Provider: 11/21/18 17:34 Notes: Patient is a 58-year-old female with a past medical history of diabetes, hypertension, recently had a cardiac ablation within the past several weeks who presents with complaints of chest pain and shortness of breath both of which are intermittent that have been ongoing since a cardiac ablation. She saw her check writer Dr. Licea today who referred her to the emergency department for assessment of a possible pericardial effusion. The patient denies any pain or shortness of breath at the time of my assessment. States the pain is a catching, aching pain that comes to the right side of her chest intermittently. No clear triggering or exacerbating factor. Nothing seems to relieve the symptoms and they do resolve spontaneously. She denies any pleuritic pain. Denies any symptoms of any kind currently. She states "I need to think any to be here, I only came because my doctor insisted". No syncope. No increased lower extremity edema. TRAVEL OUTSIDE OF THE [place] IN LAST 30 DAYS: No - Related Data Allergies/Adverse Reactions: Sulfa (Sulfonamide Antibiotics) Adverse Reaction (Verified 02/10/18 12:54) Past Medical History - General Information source: Patient - Social History Smoking Status: Never Smoker Chew tobacco use (# tins/day): No Frequency of alcohol use: None Drug Abuse: None Lives with: Family Family History: Reviewed & Not Pertinent Patient has suicidal ideation: No Patient has homicidal ideation: No - Past Medical History Cardiac Medical History: Reports: Hx Hypercholesterolemia, Hx Hypertension Endocrine Medical History: Reports: Hx Diabetes Mellitus Type 2 Renal/ Medical History: Denies: Hx Peritoneal Dialysis Malignancy Medical History: Reports: Hx Breast Cancer - chemo 2 weeks ago Past Surgical History: Reports: Hx Cardiac Surgery - Cardiac ablation 2018, Hx Hysterectomy, Hx Kidney (Renal Surgery) - left kidney transplant, Other - port Review of Systems - Review of Systems Notes: Constitutional: Negative for fever. HENT: Negative for sore throat. Eyes: Negative for visual changes. Cardiovascular: Positive for chest pain. Respiratory: Positive for shortness of breath. Gastrointestinal: Negative for abdominal pain, vomiting or diarrhea. Genitourinary: Negative for dysuria. Musculoskeletal: Negative for back pain. Skin: Negative for rash. Neurological: Negative for headaches, weakness or numbness. 10 point ROS negative except as marked above and in HPI. Physical Exam - Vital signs Vitals: Temp Pulse Resp BP Pulse Ox 98.1 F 75 18 185/64 H 100 11/21/18 17:38 11/21/18 17:38 11/21/18 17:38 11/21/18 17:38 11/21/18 17:38 Interpretation: Hypertensive Notes: PHYSICAL EXAMINATION: GENERAL: Well-appearing, well-nourished and in no acute distress. HEAD: Atraumatic, normocephalic. EYES: Pupils equal round and reactive to light, extraocular movements intact, sclera anicteric, conjunctiva are normal. ENT: nares patent, oropharynx clear without exudates. Moist mucous membranes. NECK: Normal range of motion, supple without lymphadenopathy LUNGS: Breath sounds clear to auscultation bilaterally and equal. No wheezes rales or rhonchi. HEART: Regular rate and rhythm without murmurs, bedside echocardiogram without evidence of pericardial effusion or tamponade ABDOMEN: Soft, nontender, normoactive bowel sounds. No guarding, no rebound. No masses appreciated. EXTREMITIES: Normal range of motion, trace edema in the bilateral lower extremities that is equal and symmetric. No cyanosis. NEUROLOGICAL: No focal neurological deficits. Moves all extremities spontaneously and on command. PSYCH: Normal mood, normal affect. SKIN: Warm, Dry, normal turgor, no rashes or lesions noted. Course - Re-evaluation Re-evalutation: 11/21/18 20:06 Presentation of intermittent chest pain and shortness of breath over the past 2.5 weeks in an otherwise well appearing patient. Patient referred to the emergency department by her check writer due to concerns of a possible pericardial effusion. Low clinical suspicion for ACS given clinical history, exam, EKG without ST elevations or depressions, and negative initial troponin. HEART score less than or equal to 3. PE also seems unlikely given clinical history, absence of tachycardia and contrary to triage assessment note the patient does not demonstrate any dyspnea of any kind of my exam. She is saturating 100% on room air, breathing 14 times per minute. She states that her symptoms are all entirely intermittent. She denies any pleuritic component to her pain. No unilateral leg swelling. Will therefore not pursue this diagnosis at this time is a very low clinical suspicion at this time and patient is in agreement. CXR without evidence of pneumothorax or pneumonia. No widened mediastinum. Aortic dissection also seems unlikely given history, symmetric pulses, CXR, and vitals. Patient's BNP is elevated and on my bedside echocard iogram it does appear that the patient has mild congestive failure. She does have bilateral lower extremity edema that is equal and symmetric approximate 1+. The patient is scheduled for a formal outpatient echocardiogram and I suspect that her shortness of breath may be coming from mild congestive failure. Given her history of kidney transplant and ongoing kidney failure I do not feel comfortable starting the patient on furosemide and advised that she should make this decision in conjunction with her manager women and cardiology physicians. Overall assessment: Intermittent chest pain in a patient without evidence of cardiac or other serious etiology on workup today. I discussed with patient that, based on their age, risk factors and emergency department testing today, the likelihood that their symptoms are related to a heart attack is very low (estimated risk of heart attack or over the next 30 days of less than 1%). The patient demonstrates decision making capacity and has verbalized an understanding of these risks to me. Based on this, the patient has chosen to follow-up as an outpatient. Usual chest pain return precautions reviewed. The patient states understanding and agreement with this plan. - Vital Signs Vital signs: Temp Pulse Resp BP Pulse Ox 98.1 F 75 15 178/66 H 100 11/21/18 17:38 11/21/18 17:38 11/21/18 19:00 11/21/18 18:07 11/21/18 19:00 - Laboratory Result Diagrams: 11/21/18 19:00 11/21/18 19:00 Laboratory results interpreted by me: 11/21/18 11/21/18 11/21/18 19:00 19:00 19:00 RBC 3.68 L Hgb 10.4 L Hct 31.0 L RDW 17.9 H BUN 33 H Creatinine 1.51 H Est GFR ( Amer) 43 L Est GFR (Non-Af Amer) 35 L Glucose 292 H AST 45 H Alkaline Phosphatase 225 H NT-Pro-B Natriuret Pep 4540 H Total Protein 5.9 L Albumin 3.2 L Urine Protein Urine Glucose (UA) 11/21/18 19:00 RBC Hgb Hct RDW BUN Creatinine Est GFR ( Amer) Est GFR (Non-Af Amer) Glucose AST Alkaline Phosphatase NT-Pro-B Natriuret Pep Total Protein Albumin Urine Protein >=500 H Urine Glucose (UA) >=500 H - Diagnostic Test Radiology reviewed: Image reviewed, Reports reviewed Radiology results interpreted by me: 11/21/18 20:13 Chest x-ray: No acute infiltrate or pneumothorax - EKG Interpretation by Me Additional EKG results interpreted by me: 11/21/18 20:13 Sinus rhythm. Rate 73. No ST elevations or depressions. QTC is 424. LVH is present. Discharge - Discharge Clinical Impression: Intermittent chest pain, CKD (chronic kidney disease) stage 3, GFR 30-59 ml/min Dyspnea Qualifiers: Dyspnea type: unspecified Qualified Code(s): R06.00 - Dyspnea, unspecified Condition: Good Disposition: HOME, SELF-CARE Additional Instructions: You were seen today for chest pain. The exact cause of your pain is unclear. Your bedside echocardiogram does not show any evidence of fluid around your heart. You do seem to likely have underlying congestive heart failure. However, based on your cardiac enzyme testing, chest x-ray, and EKG it does not appear that it is from an immediately life-threatening cause at this time. Although your testing here is normal is critical that you follow-up with your primary care physician for continued evaluation of this chest pain and possible stress testing. I recommended you see your physician within the next 24-48 hours to be evaluated for consideration of a stress test. Please return to emergency department immediately if you have worsening of your chest pain, shortness of breath, vomiting, become unable to exert yourself due to pain or difficulty breathing, you pass out, or have any pain that radiates into your arms, jaw, or back. Please also return if you have any additional symptoms that are concerning to you.
[2018-11-22 03:52] VITALS: BP 201/64
--- NOTE | 2018-11-22 06:43 | EKG REPORT ---
SEVERITY:- ABNORMAL ECG - SINUS RHYTHM LEFT VENTRICULAR HYPERTROPHY : Confirmed by: Hudson Carrillo MD 22-Nov-2018 06:42:59
== END 2018-11-21 22:35 | disposition home or self-care (01) ==
LOC: ER 17:21
DX: R07.9 Chest pain, unspecified (principal); R06.00 Dyspnea, unspecified; E11.22 Type 2 diabetes mellitus with diabetic chronic kidney disease; I12.9 Hypertensive chronic kidney disease with stage 1 through stage 4 chronic kidney disease, or unspecified chronic kidney disease; N18.3 Chronic kidney disease, stage 3 (moderate); R06.02 Shortness of breath; C50.919 Malignant neoplasm of unspecified site of unspecified female breast; E78.00 Pure hypercholesterolemia, unspecified; Z90.710 Acquired absence of both cervix and uterus; Z88.2 Allergy status to sulfonamides; Z94.0 Kidney transplant status
CPT/HCPCS: 93005; 36591; 99285; 36415; 87040; 82553; 82550; 85025; 80053; 81001; 84484; 83880; 71046; 93010; J3490

== ENCOUNTER → 2018-12-24 | Outpatient (CLI) | payer BC, MEDICAID ==
--- NOTE | 2018-12-24 14:47 | WOMENS IMAGING REPORT ---
EXAM DESCRIPTION: BILAT DIAGNOSTIC MAMMO W/CAD COMPLETED DATE/TIME: 12/24/2018 2:03 pm REASON FOR STUDY: Z85.3 PERSONAL HISTORY OF MALIGNANT NEOPLASM OF BREAST Z85.3 PERSONAL HISTORY OF MALIGNANT NEOPLASM OF BREAST COMPARISON: Multiple since 2016 TECHNIQUE: Standard craniocaudal and mediolateral oblique views of each breast recorded using digita l acquisition. Additional left breast 90 mediolateral view. Compression magnification views of the lumpectomy site left breast in the CC and MLO orientations LIMITATIONS: None. FINDINGS: RIGHT BREAST MASSES: No suspicious masses. CALCIFICATIONS: No new or suspicious calcifications. ARCHITECTURAL DISTORTION: None. DEVELOPING DENSITY: None. ASYMMETRY: None noted. OTHER: No other significant findings. LEFT BREAST MASSES: No suspicious masses. CALCIFICATIONS: No new or suspicious calcifications. ARCHITECTURAL DISTORTION: In the deep left upper outer quadrant, a lumpectomy site with 6 melchor is present. Post therapeutic architectural distortion. DEVELOPING DENSITY: None. ASYMMETRY: None noted. OTHER: Stereotactic biopsy clip left breast upper outer quadrant. Diffuse left breast skin thickenin g from post radiation change Read with the assistance of CAD: .[facility] - R2 Cenova Version 1.3 .[facility] Imaging - R2 Cenova Version 1.[address] .[facility] - R2 Cenova Version 2.4 .[facility] [place] [facility] - R2 Cenova Version 2.4 .[facility] - R2 Physical Chemistry Professor Version 9.2 IMPRESSION: No mammographic/ tomosynthesis evidence for malignancy bilaterally BREAST DENSITY: c. The breasts are heterogeneously dense, which may obscure small masses. BIRAD: 2 Benign findings. RECOMMENDATION: RECOMMENDED FOLLOW UP: Please continue right breast screening, left breast diagnosti c mammography/ tomosynthesis in December 2019 SPECIFIC INTERVENTION/IMAGING/CONSULTATION RECOMMENDED:No additional intervention/ imaging/consultati on needed at this time. COMMUNICATION:The negative/benign results were communicated to the patient. COMMENT: The patient has been notified of the results by letter per MQSA requirements. Additional no tification policies are in place for contacting patient with suspicious or incomplete findings. Quality ID #[id number]: The [employer] recommends an annual screening mammogram for women aged 40 years or over. This facility utilizes a reminder system to ensure that all patients receive reminder letters, and/or direct phone calls for appointments. This includes reminders for routine scr eening mammograms, diagnostic mammograms, or other Breast Imaging Interventions when appropriate. Th is patient will be placed in the appropriate reminder system. The [employer] ([employer]) has developed recommendations for screening MRI of the breast s in certain patient populations, to be used in conjunction with mammography. Breast MRI surveillanc e may be appropriate for women with more than 20% lifetime risk of developing breast cancer as deter mined by genetic testing, significant family history of the disease, or history of mantle radiation f or Hodgkins Disease. ACR Practice Guidelines 2008. TECHNICAL DOCUMENTATION: FINDING NUMBER: (1) ASSESSMENT: (1) JOB ID: [id number] [employer]- All Rights Reserved Reading location - IP/workstation name: [email or web address]
== END ==
LOC: WI 13:30
PROVIDERS: ATTEND Physician Assistant
DX: Z08 Encounter for follow-up examination after completed treatment for malignant neoplasm (principal); Z85.3 Personal history of malignant neoplasm of breast
CPT/HCPCS: 77066

== ENCOUNTER 2019-01-12 08:59 | Inpatient (IN) | payer BC ==
[2019-01-12] MEDS ORDERED: ONDANSETRON HCL INJ/PF 4 MG/2 ML SDV IV ONE (10:37)
[2019-01-12] MEDS ORDERED: NORMAL SALINE 1000 ML 1,000 ML IV ONE ×2 (10:37→11:49)
[2019-01-12] MEDS ORDERED: ACETAMINOPHEN 325 MG TABLET PO ONE (10:38)
--- NOTE | 2019-01-12 10:38 | ER Document Report ---
ED General - General Chief Complaint: Abdominal Pain Stated Complaint: ABDOMINAL PAIN Time Seen by Provider: 01/12/19 10:08 Primary Care Provider: ALYSON AMADOR PA [Primary Care Provider] - Follow up as needed TRAVEL OUTSIDE OF THE [place] IN LAST 30 DAYS: No - HPI Notes: Patient is a 58-year-old female that presents to the emergency department for chief complaint of abdominal pain. Patient presents complaining of epigastric abdominal pain for the last 3 weeks. She states 3 weeks ago she was diagnosed with hepatitis A. She is not sure how she contracted this infection. She does have Zofran at home which she has been taking. She reports increased fatigue and generalized malaise as well as difficulty eating and drinking. She states when she eats she has exacerbation o f her epigastric pain. She reports nausea with no vomiting. She states she did have 2 days of diarrhea last week but that has since resolved. She denies any fevers but does endorse chills. Patient's family was concerned that she was too tired to work which is why they brought her back to the emergency room for evaluation. Patient denies any new symptoms today compared to the last 3 weeks but states she is not feeling any better. Patient is currently on day 6 of a Bactrim prescription for urinary tract infection. She denies any urinary complaints currently. Past Medical History: Diabetes, hypertension, hepatitis A Past Surgical History: Renal transplant Social History: Denies smoking and alcohol use. Family History: Reviewed and noncontributory for presenting illness Allergies: Reviewed, see documented allergy list. REVIEW OF SYSTEMS: CONSTITUTIONAL : No fever chills No diaphoresis Malaise EENT: No vision changes No congestion No sore throat CARDIOVASCULAR: No chest pain No palpitations RESPIRATORY: No shortness of breath No cough No difficulty breathing GASTROINTESTINAL: abdominal pain nausea No vomiting diarrhea GENITOURINARY: No dysuria No hematuria No difficulty urinating MUSCULOSKELETAL: No back pain No leg pain No arm pain SKIN: No rashes No lesions LYMPHATIC: No swollen, enlarged glands. NEUROLOGICAL: No lightheadedness No headache No weakness No paresthesias PSYCHIATRIC: No anxiety No depression PHYSICAL EXAMINATION: Vital signs reviewed, nursing noted reviewed. GENERAL: Well-appearing, well-nourished and in no acute distress. HEAD: Atraumatic, normocephalic. EYES: Eyes appear normal, extraocular movements intact, sclera anicteric, conjunctiva are normal. ENT: nares patent, oropharynx clear without exudates. Dry mucous membranes. NECK: Normal range of motion, supple without lymphadenopathy LUNGS: Breath sounds clear to auscultation bilaterally and equal. No wheezes rales or rhonchi. HEART: Regular rate and rhythm without murmurs ABDOMEN: Soft, epigastric and right upper quadrant tenderness,, normoactive bowel sounds. No rebound, guarding, or rigidity. No masses appreciated. EXTREMITIES: Nontender, good range of motion, trace pretibial edema bilaterally NEUROLOGICAL: No focal neurological deficits. Moves all extremities spontaneously Motor and sensory grossly intact on exam. PSYCH: Normal mood, normal affect. SKIN: Warm, Dry, normal turgor, no rashes or lesions noted on exposed skin - Related Data Allergies/Adverse Reactions: Sulfa (Sulfonamide Antibiotics) Adverse Reaction (Verified 02/10/18 12:54) Past Medical History - Social History Smoking Status: Never Smoker Chew tobacco use (# tins/day): No Frequency of alcohol use: None Drug Abuse: None Family History: Reviewed & Not Pertinent Patient has suicidal ideation: No Patient has homicidal ideation: No - Past Medical History Cardiac Medical History: Reports: Hx Hypercholesterolemia, Hx Hypertension Endocrine Medical History: Reports: Hx Diabetes Mellitus Type 2 Renal/ Medical History: Denies: Hx Peritoneal Dialysis Malignancy Medical History: Reports: Hx Breast Cancer - chemo 2 weeks ago Past Surgical History: Reports: Hx Cardiac Surgery - Cardiac ablation 2018, Hx Hysterectomy, Hx Kidney (Renal Surgery) - left kidney transplant, Other - port Physical Exam - Vital signs Vitals: Temp Pulse Resp BP Pulse Ox 97.3 F 91 20 154/70 H 96 01/12/19 09:04 01/12/19 09:04 01/12/19 09:04 01/12/19 09:04 01/12/19 09:04 Course - Re-evaluation Re-evalutation: 01/12/19 10:37 Vitals reviewed. Nursing notes reviewed. Patient has dry mucous membranes and has been endorsing poor oral intake. She will be given IV hydration and Zofran for symptomatic management. 01/12/19 12:33 Patient's workup today shows acute kidney injury related to her dehydration and vomiting. Patient also has mild hyponatremia and hyperkalemia which will likely correct with IV hydration. She has no leukocytosis or urinary symptoms and I suspect the Bactrim she has been taking is appropriately treating her urinary tract infection. She is not septic. The remainder of her workup is unremarkable. Patient will be admitted to the hospital for IV hydration and mo nitoring of her acute kidney injury. Case discussed with Dr. Khan who accepts admission. Patient in agreement with plan of care. Laboratory 01/12/19 01/12/19 01/12/19 10:45 10:45 10:45 WBC 6.7 RBC 4.05 Hgb 11.1 L Hct 33.9 L MCV 84 MCH 27.5 MCHC 32.8 RDW 18.2 H Plt Count 278 Seg Neutrophils % 70.7 Lymphocytes % 19.6 Monocytes % 7.1 Eosinophils % 2.1 Basophils % 0.5 Absolute Neutrophils 4.7 Absolute Lymphocytes 1.3 Absolute Monocytes 0.5 Absolute Eosinophils 0.1 Absolute Basophils 0.0 VBG pH VBG pCO2 VBG HCO3 VBG Base Excess Sodium 133.5 L Potassium 5.5 H Chloride 90 L Carbon Dioxide 29 Anion Gap 15 BUN 42 H Creatinine 2.14 H Est GFR ( Amer) 29 L Est GFR (Non-Af Amer) 24 L Glucose 492 H* Calcium 9.8 Total Bilirubin 1.4 H Direct Bilirubin 0.6 H Neonat Total Bilirubin Not Reportable Neonat Direct Bilirubin Not Reportable Neonat Indirect Bili Not Reportable AST 78 H ALT 53 H Alkaline Phosphatase 639 H Total Protein 6.5 Albumin 3.6 Lipase 120.6 Urine Color Cancelled Urine Appearance Cancelled Urine pH Cancelled Ur Specific [place] Cancelled Urine Protein Cancelled Urine Glucose (UA) Cancelled Urine Ketones Cancelled Urine Blood Cancelled Urine Nitrite Cancelled Urine Bilirubin Cancelled Urine Urobilinogen Cancelled Ur Leukocyte Esterase Cancelled Urine WBC (Auto) Cancelled Urine RBC (Auto) Cancelled U Hyaline Cast (Auto) Cancelled Urine Bacteria (Auto) Cancelled Urine Red Cell Clumps Cancelled Urine WBC Clumps Cancelled Squamous Epi Cells Auto Cancelled U Non-Squamous Epis Auto Cancelled Calcium Carbonate Cryst Cancelled Calcium Phosphate Cryst Cancelled Calcium Oxalate Cr Auto Cancelled Leucine Crystals Cancelled Cystine Crystals Cancelled Uric Acid Cryst (Auto) Cancelled Triple Phos Cryst (Auto) Cancelled Tyrosine Crystals Cancelled Amorphous Sediment Auto Cancelled Cellular Casts Cancelled Epithelial Casts (Auto) Cancelled Fatty Casts Cancelled Granular Casts (Auto) Cancelled Waxy Casts (Auto) Cancelled Broad Casts Cancelled RBC Casts (Auto) Cancelled WBC Casts (Auto) Cancelled Urine Mucus (Auto) Cancelled U Trichomonas (Auto) Cancelled Ur Yeast w Hyphae Cancelled Urine Yeast (Budding) Cancelled Urine Ascorbic Acid Cancelled 01/12/19 11:55 WBC RBC Hgb Hct MCV MCH MCHC RDW Plt Count Seg Neutrophils % Lymphocytes % Monocytes % Eosinophils % Basophils % Absolute Neutrophils Absolute Lymphocytes Absolute Monocytes Absolute Eosinophils Absolute Basophils VBG pH 7.33 VBG pCO2 52.6 VBG HCO3 26.8 VBG Base Excess 0.1 Sodium Potassium Chloride Carbon Dioxide Anion Gap BUN Creatinine Est GFR ( Amer) Est GFR (Non-Af Amer) Glucose Calcium Total Bilirubin Direct Bilirubin Neonat Total Bilirubin Neonat Direct Bilirubin Neonat Indirect Bili AST ALT Alkaline Phosphatase Total Protein Albumin Lipase Urine Color Urine Appearance Urine pH Ur Specific [place] Urine Protein Urine Glucose (UA) Urine Ketones Urine Blood Urine Nitrite Urine Bilirubin Urine Urobilinogen Ur Leukocyte Esterase Urine WBC (Auto) Urine RBC (Auto) U Hyaline Cast (Auto) Urine Bacteria (Auto) Urine Red Cell Clumps Urine WBC Clumps Squamous Epi Cells Auto U Non-Squamous Epis Auto Calcium Carbonate Cryst Calcium Phosphate Cryst Calcium Oxalate Cr Auto Leucine Crystals Cystine Crystals Uric Acid Cryst (Auto) Triple Phos Cryst (Auto) Tyrosine Crystals Amorphous Sediment Auto Cellular Casts Epithelial Casts (Auto) Fatty Casts Granular Casts (Auto) Waxy Casts (Auto) Broad Casts RBC Casts (Auto) WBC Casts (Auto) Urine Mucus (Auto) U Trichomonas (Auto) Ur Yeast w Hyphae Urine Yeast (Budding) Urine Ascorbic Acid - Vital Signs Vital signs: Temp Pulse Resp BP Pulse Ox 97.3 F 91 15 143/65 H 96 01/12/19 09:04 01/12/19 09:04 01/12/19 11:01 01/12/19 11:01 01/12/19 09:04 - Laboratory Result Diagrams: 01/12/19 10:45 01/12/19 10:45 Laboratory results interpreted by me: 01/12/19 01/12/19 10:45 10:45 Hgb 11.1 L Hct 33.9 L RDW 18.2 H Sodium 133.5 L Potassium 5.5 H Chloride 90 L BUN 42 H Creatinine 2.14 H Est GFR ( Amer) 29 L Est GFR (Non-Af Amer) 24 L Glucose 492 H* Total Bilirubin 1.4 H Direct Bilirubin 0.6 H AST 78 H ALT 53 H Alkaline Phosphatase 639 H Discharge - Discharge Clinical Impression: Hyperglycemia, Acute kidney injury, Dehydration, Hyperkalemia, Hyponatremia Condition: Stable Disposition: ADMITTED OBSERVATION Admitting Provider: Hospitalist Unit Admitted: Medical Floor Referrals: ALYSON AMADOR PA [Primary Care Provider] - Follow up as needed
[2019-01-12 11:13] LABS: ABSOLUTE EOSINOPHILS # (AUTO) 0.1 10^3/uL (0.0-0.6); ABSOLUTE LYMPHOCYTES (AUTO) 1.3 10^3/uL (0.5-4.7); ABSOLUTE MONOCYTES (AUTO) 0.5 10^3/uL (0.1-1.4); ABSOLUTE NEUT (AUTO) 4.7 10^3/uL (1.7-8.2); BASOPHILS % (AUTO) 0.5 % (0-2); EOSINOPHILS % (AUTO) 2.1 % (0-6); HEMATOCRIT 33.9 % (36.0-47.0); HEMOGLOBIN 11.1 g/dL (12.0-15.5); LYMPHOCYTES % (AUTO) 19.6 % (13-45); MEAN CORPUSCULAR HEMOGLOBIN 27.5 pg (27.0-33.4); MEAN CORPUSCULAR HGB CONC 32.8 g/dL (32.0-36.0); MEAN CORPUSCULAR VOLUME 84 fl (80-97); MONOCYTES % (AUTO) 7.1 % (3-13); PLATELET COUNT 278 10^3/uL (150-450); RED BLOOD COUNT 4.05 10^6/uL (3.72-5.28); RED CELL DISTRIBUTION WIDTH 18.2 % (11.5-14.0); SEGMENTED NEUTROPHILS % (AUTO) 70.7 % (42-78); TOTAL CELLS COUNTED % (AUTO) 100 %; WHITE BLOOD COUNT 6.7 10^3/uL (4.0-10.5)
[2019-01-12 11:32] LABS: ALANINE AMINOTRANSFERASE 53 U/L (9-52); ALBUMIN 3.6 g/dL (3.5-5.0); ALKALINE PHOSPHATASE 639 U/L (38-126); ANION GAP 15 (5-19); ASPARTATE AMINO TRANSFERASE 78 U/L (14-36); BILIRUBIN,DIRECT 0.6 mg/dL (0.0-0.4); BILIRUBIN,TOTAL 1.4 mg/dL (0.2-1.3); BLOOD UREA NITROGEN 42 mg/dL (7-20); CALCIUM 9.8 mg/dL (8.4-10.2); CARBON DIOXIDE 29 mmol/L (22-30); CHLORIDE 90 mmol/L (98-107); LIPASE 120.6 U/L (23-300); POTASSIUM 5.5 mmol/L (3.6-5.0); SODIUM 133.5 mmol/L (137-145); TOTAL PROTEIN 6.5 g/dL (6.3-8.2)
[2019-01-12 11:48] LABS: GLUCOSE 492 mg/dL (75-110)
[2019-01-12 12:18] LABS: VENOUS BLOOD BASE EXCESS 0.1 mmol/L; VENOUS BLOOD HCO3 26.8 mmol/L (20-32); VENOUS BLOOD PCO2 52.6 mmHg (35-63); VENOUS BLOOD PH 7.33 (7.30-7.42)
[2019-01-12] MEDS ORDERED: ONDANSETRON HCL INJ/PF 4 MG/2 ML SDV IV PRN (13:21)
[2019-01-12] MEDS ORDERED: PROMETHAZINE HCL INJ 25 MG/1 ML VIAL IV PRN (13:21)
[2019-01-12] MEDS ORDERED: OXYCODONE-ACETAMINOPHEN 5-325 MG TABLET PO PRN (13:21)
[2019-01-12] MEDS ORDERED: ACETAMINOPHEN 325 MG TABLET PO PRN (13:21)
[2019-01-12] MEDS ORDERED: NORMAL SALINE 1000 ML 1,000 ML IV PRN (13:21)
[2019-01-12] MEDS ORDERED: GLUCAGON,HUMAN RECOMB 1 MG INJ IM PRN (13:25)
[2019-01-12] MEDS ORDERED: DEXTROSE 50%-WATER 25 GM/50 ML DISP.SYRIN IV PRN ×2 (13:25)
[2019-01-12] MEDS ORDERED: DEXTROSE 40% GEL 15 GM TUBE PO PRN ×2 (13:25)
--- NOTE | 2019-01-12 13:46 | PDOC H&P ---
History of Present Illness Admission Date/PCP: 01/12/19 13:16 DARIN GOMEZ Patient complains of: Nausea and diarrhea for the last 5 days History of Present Illness: CINTHIA ROSS is a 58 year old female with history of diabetes mellitus hypertension hyperlipidemia osteoarthritis, kidney failure with kidney transplant 20 years ago, atrial fibrillation with ablation last year came to the emergency room with complaints of abdominal pain for the last 1 month. Pain is significantly worsened for the last 5 days she is taking tramadol without any improvement decided to came to the emergency room for further evaluation. Abdominal pain is 5-6 x 10 in severity in association with nausea denies any vomiting complaining of loose stools for the last few days to 3 watery stools every day. Denies any blood in the stool. Denies any chest pains but compla ining of shortness of breath. Denies any fever but complains of cold symptoms. Complains of mild headaches denies any dizzy spells. Is also saying started taking antibiotic for a urinary tract infection for the last 6 days. She does not know the name of the antibiotic. Patient is also complaining of decreased appetite. ER physician called for medical consult for admission after noticing creatinine was bumped from 1.3-2.14 today for possible dehydration. Past Medical History Cardiac Medical History: Reports: Hyperlipidema, Hypertension Endocrine Medical History: Reports: Diabetes Mellitus Type 2 Renal/ Medical History: Reports: Chronic Kidney Disease Malignancy Medical History: Reports: Breast Cancer - chemo 2 weeks ago Musculoskeltal Medical History: Reports: Arthritis Hematology: Reports: Anemia - Iron deficiency anemia Infectious Medical History: Reports: Other Past Surgical History Past Surgical History: Reports: Hysterectomy, Other - port Social History Smoking Status: Never Smoker Frequency of Alcohol Use: None Hx Recreational Drug Use: No Drugs: None - Advance Directive Resuscitation Status: Full Code Family History Family History: Reviewed & Not Pertinent Parental Family History Reviewed: Yes - Family history of diabetes mellitus, hypertension and breast cancer Children Family History Reviewed: Yes Sibling(s) Family History Reviewed.: Yes Medication/Allergy Allergies/Adverse Reactions: Sulfa (Sulfonamide Antibiotics) Adverse Reaction (Verified 02/10/18 12:54) Review of Systems Constitutional: PRESENT: chills, headache(s). ABSENT: fever(s) Eyes: ABSENT: visual disturbances Ears: ABSENT: hearing changes Nose, Mouth, and Throat: ABSENT: sore throat Cardiovascular: ABSENT: dyspnea on exertion, orthropnea, palpitations Respiratory: PRESENT: cough. ABSENT: dyspnea, hemoptysis Gastrointestinal: PRESENT: abdominal pain, diarrhea, nausea Musculoskeletal: ABSENT: joint swelling Integumentary: ABSENT: rash, wounds Neurological: ABSENT: abnormal gait, abnormal speech, confusion, dizziness, focal weakness, syncope Psychiatric: ABSENT: anxiety, depression, homidical ideation, suicidal ideation Physical Exam Vital Signs: Temp Pulse Resp BP Pulse Ox 97.3 F 91 18 136/47 H 96 01/12/19 09:04 01/12/19 09:04 01/12/19 12:01 01/12/19 12:01 01/12/19 09:04 Intake & Output 01/11/19 01/12/19 01/13/19 06:59 06:59 06:59 Intake Total 1000 Balance 1000 Weight 81.6 kg General appearance: PRESENT: no acute distress Head exam: PRESENT: atraumatic Eye exam: PRESENT: PERRLA Mouth exam: PRESENT: moist, tongue midline Neck exam: ABSENT: carotid bruit, JVD, lymphadenopathy, thyromegaly Respiratory exam: PRESENT: clear to auscultation niki. ABSENT: rales, rhonchi, wheezes Cardiovascular exam: PRESENT: RRR. ABSENT: diastolic murmur, rubs, systolic murmur GI/Abdominal exam: PRESENT: normal bowel sounds, soft. ABSENT: distended, guarding, mass, organolmegaly, rebound, tenderness Extremities exam: PRESENT: full ROM. ABSENT: calf tenderness, clubbing, pedal edema Neurological exam: PRESENT: alert, awake, oriented to person, oriented to place, oriented to time, oriented to situation, CN II-XII grossly intact. ABSENT: motor sensory deficit Psychiatric exam: PRESENT: appropriate affect, normal mood. ABSENT: homicidal ideation, suicidal ideation Results Laboratory Results: 01/12/19 10:45 01/12/19 10:45 01/12/19 01/12/19 01/12/19 10:45 10:45 10:45 WBC 6.7 RBC 4.05 Hgb 11.1 L Hct 33.9 L MCV 84 MCH 27.5 MCHC 32.8 RDW 18.2 H Plt Count 278 Seg Neutrophils % 70.7 Lymphocytes % 19.6 Monocytes % 7.1 Eosinophils % 2.1 Basophils % 0.5 Absolute Neutrophils 4.7 Absolute Lymphocytes 1.3 Absolute Monocytes 0.5 Absolute Eosinophils 0.1 Absolute Basophils 0.0 VBG pH VBG pCO2 VBG HCO3 VBG Base Excess Sodium 133.5 L Potassium 5.5 H Chloride 90 L Carbon Dioxide 29 Anion Gap 15 BUN 42 H Creatinine 2.14 H Est GFR ( Amer) 29 L Est GFR (Non-Af Amer) 24 L Glucose 492 H* Calcium 9.8 Total Bilirubin 1.4 H AST 78 H ALT 53 H Alkaline Phosphatase 639 H Total Protein 6.5 Albumin 3.6 Lipase 120.6 Urine Color Cancelled Urine Appearance Cancelled Urine pH Cancelled Ur Specific [place] Cancelled Urine Protein Cancelled Urine Glucose (UA) Cancelled Urine Ketones Cancelled Urine Blood Cancelled Urine Nitrite Cancelled Ur Leukocyte Esterase Cancelled Urine WBC (Auto) Cancelled Urine RBC (Auto) Cancelled 01/12/19 11:55 WBC RBC Hgb Hct MCV MCH MCHC RDW Plt Count Seg Neutrophils % Lymphocytes % Monocytes % Eosinophils % Basophils % Absolute Neutrophils Absolute Lymphocytes Absolute Monocytes Absolute Eosinophils Absolute Basophils VBG pH 7.33 VBG pCO2 52.6 VBG HCO3 26.8 VBG Base Excess 0.1 Sodium Potassium Chloride Carbon Dioxide Anion Gap BUN Creatinine Est GFR ( Amer) Est GFR (Non-Af Amer) Glucose Calcium Total Bilirubin AST ALT Alkaline Phosphatase Total Protein Albumin Lipase Urine Color Urine Appearance Urine pH Ur Specific [place] Urine Protein Urine Glucose (UA) Urine Ketones Urine Blood Urine Nitrite Ur Leukocyte Esterase Urine WBC (Auto) Urine RBC (Auto) Assessment & Plan - Diagnosis (1) Acute kidney injury Is this a current diagnosis for this admission?: Yes Plan: 01/12/2019-patient was admitted for acute kidney injury. Patient's baseline creatinine is 1.3 on admission today is 2.14. Most likely secondary to nausea and diarrhea in association with poor oral intake. Plan is to put her in telemetry as inpatient. Start IV fluids normal saline at 75 cc/h. Stool for C. difficile, WBC, Gram stain and culture was sent. CT of the abdomen without oral and IV contrast was requested. Chest x-ray was requested. Started on IV Zofran 4 mg every 4 as needed and Phenergan 12.5 mg every 4 as needed for nausea. Plan to repeat the renal panel tomorrow. GI prophylaxis and DVT prophylaxis was requested. Will start her on p.o. vancomycin 125 mg every 6 hours (2) Hyperkalemia Is this a current diagnosis for this admission?: Yes Plan: 01/12/2019-patient's admission potassium is 5.5. to give Velt[place] 25.6 g p.o. daily. EKG was requested. (3) Diabetes mellitus Qualifiers: Diabetes mellitus type: type 2 Diabetes mellitus chcf insulin use: with termite inspector use Diabetes mellitus complication status: with unspecified complications Qualified Code(s): E11.8 - Type 2 diabetes mellitus with unspecified complications; Z79.4 - terminologist (current) use of insulin; Z79.4 - terminologist (current) use of insulin; Z79.4 - terminologist (current) use of insulin; Z79.4 - terminologist (current) use of insulin Is this a current diagnosis for this admission?: Yes Plan: 01/12/2019 patient is given the history of type 2 diabetes mellitus. She is not sure about her home medications. She was placed on insulin sliding scale before meals and at bedtime plan is to check her hemoglobin A1c tomorrow morning. Diet exercise weight loss lifestyle modifications and dietary consult was requested. (5) Breast cancer Qualifiers: Breast location: unspecified site of breast Laterality: unspecified laterality Is this a current diagnosis for this admission?: No Plan: 01/18/2019-patient is given the history of breast cancer status post lumpectomy. She is follow-up with oncologist outside the town. She did not remember the name. (6) Hyponatremia Is this a current diagnosis for this admission?: Yes Plan: 01/12/2019-serum sodium as well on admission is 133.5. It may be secondary to stage III kidney disease she has with creatinine of 1.3 baseline or may be due to poor oral intake association with diarrhea. (7) Hypertension Qualifiers: Hypertension type: essential hypertension Qualified Code(s): I10 - Essential (primary) hypertension Is this a current diagnosis for this admission?: Yes Plan: 01/12/2019-patient is given the history of hypertension blood pressure is 136/74. Be going to resume home medications once list is available. - Time Time Spent: 50 to 70 Minutes Medications reviewed and adjusted accordingly: Yes Anticipated discharge: Home
[2019-01-12 14:11] LABS: CREATINE KINASE MB 1.32 ng/mL (<4.55); TROPONIN I 0.018 ng/mL
--- NOTE | 2019-01-12 14:21 | RADIOLOGY REPORT (SQ) ---
EXAM DESCRIPTION: CHEST SINGLE VIEW COMPLETED DATE/TIME: 01/12/2019 2:11 pm REASON FOR STUDY: shortness of breath COMPARISON: 11/21/2018 EXAM PARAMETERS: NUMBER OF VIEWS: One view. TECHNIQUE: Single frontal radiographic view of the chest acquired. RADIATION DOSE: NA LIMITATIONS: None. FINDINGS: LUNGS AND PLEURA: No opacities, masses or pneumothorax. No pleural effusion. MEDIASTINUM AND HILAR STRUCTURES: No masses. Contour normal. HEART AND VASCULAR STRUCTURES: Heart normal in size. Normal vasculature. BONES: No acute findings. HARDWARE: [id number] catheter, stable finding. OTHER: No other significant finding. IMPRESSION: 1. No significant interval changes since the prior study dated 11/21/2018. No acute fi ndings. TECHNICAL DOCUMENTATION: JOB ID: [id number] [employer]- All Rights Reserved Reading location - IP/workstation name: [email or web address]
--- NOTE | 2019-01-12 15:46 | RADIOLOGY REPORT (SQ) ---
EXAM DESCRIPTION: CT ABD/PELVIS NO ORAL OR IV COMPLETED DATE/TIME: 01/12/2019 3:34 pm REASON FOR STUDY: abd pain COMPARISON: 2017 TECHNIQUE: CT scan of the abdomen and pelvis performed without intravenous or oral contrast. Images reviewed with lung, soft tissue, and bone windows. Reconstructed coronal and sagittal MPR images revi ewed. All images stored on PACS. All CT scanners at this facility use dose modulation, iterative reconstruction, and/or weight based d osing when appropriate to reduce radiation dose to as low as reasonably achievable (ALARA). [facility]: Dose Right [facility]: CareDose [facility]: Dose Right [facility]: Teradose 4D [facility]: DealDash RADIATION DOSE: CT Rad equipment meets quality standard of care and radiation dose reduction techniq ues were employed. CTDIvol: 9.8 mGy. DLP: 532 mGy-cm.mGy. LIMITATIONS: None. FINDINGS: LOWER CHEST: No significant findings. No nodules or infiltrates. NON-CONTRASTED LIVER, SPLEEN, ADRENALS: Evaluation limited by lack of IV contrast. No identified sign ificant masses. PANCREAS: No masses. No peripancreatic inflammatory changes. GALLBLADDER: No identified stones by CT criteria. No inflammatory changes to suggest cholecystitis. RIGHT KIDNEY AND URETER: Atrophic. LEFT KIDNEY AND URETER: Atrophic. Transplanted kidney left lower quadrant. No urinary tract stones. AORTA AND RETROPERITONEUM: No aneurysm. No retroperitoneal masses or adenopathy. BOWEL AND PERITONEAL CAVITY: No obvious masses or inflammatory changes. No free fluid. APPENDIX: Normal. PELVIS, BLADDER, AND ABDOMINAL WALL:No abnormal masses. No free fluid. Bladder normal. BONES: Nothing acute. OTHER: No other significant finding. IMPRESSION: No acute findings. Transplant kidney left lower quadrant. TECHNICAL DOCUMENTATION: JOB ID: [id number] Quality ID # [id number]: Final reports with documentation of one or more dose reduction techniques (e.g., Au tomated exposure control, adjustment of the mA and/or kV according to patient size, use of iterative reconstruction technique) 2010 [employer]- All Rights Reserved Reading location - IP/workstation name: [email or web address]
[2019-01-12] MEDS: HEPARIN SOD (PORCINE) 5,000 UNIT/ML 1 ML SYRINGE SUBCUT SCH ×2 (15:48→22:52)
[2019-01-12] MEDS: INSULIN LISPRO 100 UNIT/ML 3 ML VIAL SUBCUT SCH ×2 (17:22→22:52)
[2019-01-12] MEDS ORDERED: VANCOMYCIN HCL INJ 500 MG VIAL PO SCH (18:00)
[2019-01-12] MEDS: DOCUSATE SODIUM 100 MG CAPSULE PO SCH (18:45)
[2019-01-12] MEDS: TACROLIMUS ANHYDROUS 1 MG CAPSULE PO SCH (18:49)
[2019-01-12 19:48] LABS: APPEARANCE,URINE CLEAR; BILIRUBIN,URINE NEGATIVE (NEGATIVE); COLOR,URINE YELLOW; GLUCOSE, URINE >=500 mg/dL (NEGATIVE); KETONES,URINE TRACE mg/dL (NEGATIVE); LEUKOCYTE ESTERASE,URINE SMALL (NEGATIVE); NITRITE,URINE NEGATIVE (NEGATIVE); PROTEIN,URINE 100 mg/dL (NEGATIVE); URINE SPECIFIC GRAVITY 1.015; UROBILINOGEN,URINE NEGATIVE mg/dL (<2.0)
[2019-01-12 21:07] LABS: CREATINE KINASE MB 1.33 ng/mL (<4.55); TROPONIN I 0.027 ng/mL
[2019-01-12] MEDS ORDERED: ATORVASTATIN CALCIUM 80 MG TABLET PO SCH (22:00)
[2019-01-12] MEDS ORDERED: FAMOTIDINE 20 MG TABLET PO SCH ×2 (22:00)
[2019-01-12] MEDS: GABAPENTIN 300 MG CAPSULE PO SCH (22:53)
--- NOTE | 2019-01-12 23:40 | EKG REPORT ---
SEVERITY:- ABNORMAL ECG - SINUS TACHYCARDIA LEFT VENTRICULAR HYPERTROPHY BORDERLINE T ABNORMALITIES, INFERIOR LEADS : Confirmed by: Amelia Issa MD 12-Jan-2019 23:39:35
[2019-01-13] MEDS ORDERED: TRAMADOL HCL 50 MG TABLET PO PRN (01:11)
[2019-01-13 03:02] LABS: ABSOLUTE EOSINOPHILS # (AUTO) 0.2 10^3/uL (0.0-0.6); ABSOLUTE LYMPHOCYTES (AUTO) 1.1 10^3/uL (0.5-4.7); ABSOLUTE MONOCYTES (AUTO) 0.4 10^3/uL (0.1-1.4); ABSOLUTE NEUT (AUTO) 2.9 10^3/uL (1.7-8.2); BASOPHILS % (AUTO) 0.9 % (0-2); EOSINOPHILS % (AUTO) 3.5 % (0-6); HEMATOCRIT 29.1 % (36.0-47.0); HEMOGLOBIN 9.6 g/dL (12.0-15.5); LYMPHOCYTES % (AUTO) 24.4 % (13-45); MEAN CORPUSCULAR HEMOGLOBIN 26.9 pg (27.0-33.4); MEAN CORPUSCULAR VOLUME 82 fl (80-97); PLATELET COUNT 230 10^3/uL (150-450); RED BLOOD COUNT 3.57 10^6/uL (3.72-5.28); RED CELL DISTRIBUTION WIDTH 18.4 % (11.5-14.0); SEGMENTED NEUTROPHILS % (AUTO) 62.2 % (42-78); TOTAL CELLS COUNTED % (AUTO) 100 %; WHITE BLOOD COUNT 4.6 10^3/uL (4.0-10.5)
[2019-01-13 03:26] LABS: ALANINE AMINOTRANSFERASE 44 U/L (9-52); ALBUMIN 2.5 g/dL (3.5-5.0); ALKALINE PHOSPHATASE 445 U/L (38-126); ANION GAP 7 (5-19); ASPARTATE AMINO TRANSFERASE 70 U/L (14-36); BILIRUBIN,DIRECT 0.5 mg/dL (0.0-0.4); BILIRUBIN,TOTAL 0.9 mg/dL (0.2-1.3); BLOOD UREA NITROGEN 32 mg/dL (7-20); CALCIUM 8.7 mg/dL (8.4-10.2); CARBON DIOXIDE 25 mmol/L (22-30); CHLORIDE 106 mmol/L (98-107); GLUCOSE 181 mg/dL (75-110); POTASSIUM 4.6 mmol/L (3.6-5.0); SODIUM 137.9 mmol/L (137-145); TRIGLYCERIDES 134 mg/dL (<150)
[2019-01-13 03:36] LABS: DIRECT LDL 50 mg/dL (<100)
[2019-01-13 03:37] LABS: CREATINE KINASE MB 0.8 ng/mL (<4.55); TROPONIN I 0.023 ng/mL
[2019-01-13] MEDS: HEPARIN SOD (PORCINE) 5,000 UNIT/ML 1 ML SYRINGE SUBCUT SCH (05:55)
[2019-01-13] MEDS: INSULIN LISPRO 100 UNIT/ML 3 ML VIAL SUBCUT SCH ×2 (07:58→12:33)
[2019-01-13] MEDS ORDERED: PREDNISONE 5 MG TABLET PO SCH (08:00)
[2019-01-13] MEDS: DOCUSATE SODIUM 100 MG CAPSULE PO SCH (09:43)
[2019-01-13] MEDS: GABAPENTIN 300 MG CAPSULE PO SCH (09:43)
[2019-01-13] MEDS: TACROLIMUS ANHYDROUS 1 MG CAPSULE PO SCH (09:44)
[2019-01-13] MEDS ORDERED: FERROUS SULFATE 325 MG TABLET PO SCH (10:00)
[2019-01-13] MEDS ORDERED: AMLODIPINE BESYLATE 10 MG TABLET PO SCH (10:00)
[2019-01-13] MEDS ORDERED: METOPROLOL SUCCINATE 50 MG TAB.SR.24H PO SCH (10:00)
[2019-01-13] MEDS ORDERED: MULTIVITAMIN TABLET PO SCH (10:00)
[2019-01-13] MEDS ORDERED: CYANOCOBALAMIN (VITAMIN B-12) 1,000 MCG TABLET PO SCH (10:00)
--- NOTE | 2019-01-13 12:00 | PDOC DISCHARGE SUMMARY ---
General - Admit/Disc Date/PCP Admission Date/Primary Care Provider: 01/12/19 13:16 DARIN GOMEZ Discharge Date: 01/13/19 - Discharge Diagnosis (1) Acute kidney injury Is this a current diagnosis for this admission?: Yes Summary: 01/12/2019-patient was admitted for acute kidney injury. Patient's baseline creatinine is 1.3 on admission today is 2.14. Most likely secondary to nausea and diarrhea in association with poor oral intake. Plan is to put her in telemetry as inpatient. Start IV fluids normal saline at 75 cc/h. Stool for C. difficile, WBC, Gram stain and culture was sent. CT of the abdomen without oral and IV contrast was requested. Chest x-ray was requested. Started on IV Zofran 4 mg every 4 as needed and Phenergan 12.5 mg every 4 as needed for nausea. Plan to repeat the renal panel tomorrow. GI prophylaxis and DVT prophylaxis was requested. Will start her on p.o. vancomycin 125 mg every 6 hours 01/13/2019-patient was admitted with acute kidney injury most likely prerenal secondary to nausea and vomitings. Admission creatinine is 2.1 4 repeat cr eatinine today is 1.6. Acute kidney injury is resolved. And is expressing desire to go home today. (2) Hyperkalemia Is this a current diagnosis for this admission?: Yes Summary: 01/12/2019-patient's admission potassium is 5.5. to give V[place] 25.6 g p.o. daily. EKG was requested. 01/13/2019-patient's potassium level is 4.6 today admission potassium is 5.5 hyperkalemia is resolved. (3) Diabetes mellitus Is this a current diagnosis for this admission?: Yes Summary: 01/12/2019 patient is given the history of type 2 diabetes mellitus. She is not sure about her home medications. She was placed on insulin sliding scale before meals and at bedtime plan is to check her hemoglobin A1c tomorrow morning. Diet exercise weight loss lifestyle modifications and dietary consult was requested. 01/13/2019-patient has history of type 2 diabetes mellitus she was placed on insulin sliding scale during the hospital latest blood sugar is 163. Dietary consult was requested diet exercise complete the medications, lifestyle modifications are requested. Hemoglobin A1c came back as 13. Patient is on glyburide at home I am going to increase it to 5 mg p.o. twice a day. And strongly advised to follow-up with her primary care physician for further management of the blood sugars. (5) Breast cancer Is this a current diagnosis for this admission?: No Summary: 01/12/2019-patient is given the history of breast cancer status post lumpectomy. She is follow-up with oncologist outside the town. She did not remember the name. 01/13/2019-patient has history of breast cancer status post lumpectomy. She follows the oncologist out of town. (6) Hyponatremia Is this a current diagnosis for this admission?: Yes Summary: 01/12/2019-serum sodium as well on admission is 133.5. It may be secondary to stage III kidney disease she has with creatinine of 1.3 baseline or may be due to poor oral intake association with diarrhea. 01/13/2019-serum sodium is 138 admission sodium is 133.5 hyponatremia most likely secondary to nausea and vomitings which was resolved. (7) Hypertension Is this a current diagnosis for this admission?: Yes Summary: 01/12/2019-patient is given the history of hypertension blood pressure is 136/74. Be going to resume home medications once list is available. 01/13/2019-patient blood pressure is 143/64. Patient is on amlodipine 10 mg p.o. daily and metoprolol 100 mg p.o. daily patient was advised to resume the medications at home. - Additional Information Resuscitation Status: Full Code Home Medications: Amlodipine Besylate [Norvasc 10 mg Tablet] 10 mg PO DAILY 01/12/19 Amoxicillin/Potassium Clav [Augmentin 500-125 Tablet] 1 tab PO Q12 01/12/19 Atorvastatin Calcium [Lipitor 80 mg Tablet] 80 mg PO QHS 01/12/19 Cyanocobalamin (Vitamin B-12) [Vitamin B-12 1000 mcg Tablet] 1,000 mcg PO DAILY 01/12/19 Esomeprazole Mag Trihydrate [Nexium] 40 mg PO ACBRKFST 01/12/19 Ferrous Sulfate [Feosol 325 mg Tablet] 325 mg PO DAILY 01/12/19 Gabapentin [Neurontin 300 mg Capsule] 300 mg PO Q12 01/12/19 Glyburide [Diabeta 5 mg Tablet] 5 mg PO DAILY 01/12/19 Insulin Aspart [Novolog Flexpen] 0 units SQ .PERSLIDINGSCALE 01/12/19 Losartan Potassium [Cozaar 50 mg Tablet] 50 mg PO DAILY 01/12/19 Metoprolol Succinate [Toprol XL 100 mg Tablet] 100 mg PO DAILY 01/12/19 Multivitamin [Multiple Vitamins] 1 tab PO DAILY 01/12/19 Ondansetron [Zofran Odt 4 mg Tablet] 8 mg PO Q6HP PRN 01/12/19 Prednisone [Deltasone 5 mg Tablet] 5 mg PO WBRKFST 01/12/19 Tacrolimus Anhydrous [Prograf 1 mg Capsule] 1 mg PO BID 01/12/19 Tramadol HCl [Ultram 50 mg Tablet] 50 mg PO Q6HP PRN 01/12/19 History of Present Illness History of Present Illness: CINTHIA ROSS is a 58 year old female with history of diabetes mellitus hypertension hyperlipidemia osteoarthritis, kidney failure with kidney transplant 20 years ago, atrial fibrillation with ablation last year came to the emergency room with complaints of abdominal pain for the last 1 month. Pain is significantly worsened for the last 5 days she is taking tramadol without any im provement decided to came to the emergency room for further evaluation. Abdominal pain is 5-6 x 10 in severity in association with nausea denies any vomiting complaining of loose stools for the last few days to 3 watery stools every day. Denies any blood in the stool. Denies any chest pains but c omplaining of shortness of breath. Denies any fever but complains of cold symptoms. Complains of mild headaches denies any dizzy spells. Is also saying started taking antibiotic for a urinary tract infection for the last 6 days. She does not know the name of the antibiotic. Patient is also complaining of decreased appetite. ER physician called for medical consult for admission after noticing creatinine was bumped from 1.3-2.14 today for possible dehydration. Physical Exam Vital Signs: Temp Pulse Resp BP Pulse Ox 98.8 F 88 16 145/68 H 100 01/13/19 11:21 01/13/19 11:21 01/13/19 11:21 01/13/19 11:21 01/13/19 07:45 Intake & Output 01/12/19 01/13/19 01/14/19 06:59 06:59 06:59 Intake Total 2000 Balance 2000 Weight 81 kg General appearance: PRESENT: no acute distress, obese Head exam: PRESENT: atraumatic Eye exam: PRESENT: PERRLA Mouth exam: PRESENT: moist, tongue midline Neck exam: ABSENT: carotid bruit, JVD, lymphadenopathy, thyromegaly Cardiovascular exam: PRESENT: RRR. ABSENT: diastolic murmur, rubs, systolic murmur GI/Abdominal exam: PRESENT: normal bowel sounds, soft. ABSENT: distended, guarding, mass, organolmegaly, rebound, tenderness Extremities exam: PRESENT: full ROM. ABSENT: calf tenderness, clubbing, pedal edema Neurological exam: PRESENT: alert, awake, oriented to person, oriented to place, oriented to time, oriented to situation, CN II-XII grossly intact. ABSENT: motor sensory deficit Psychiatric exam: PRESENT: appropriate affect, normal mood. ABSENT: homicidal ideation, suicidal ideation Results Laboratory Results: 01/13/19 02:46 01/13/19 02:46 01/12/19 01/12/19 01/12/19 11:55 16:00 16:00 WBC RBC Hgb Hct MCV MCH MCHC RDW Plt Count Seg Neutrophils % Lymphocytes % Monocytes % Eosinophils % Basophils % Absolute Neutrophils Absolute Lymphocytes Absolute Monocytes Absolute Eosinophils Absolute Basophils VBG pH 7.33 VBG pCO2 52.6 VBG HCO3 26.8 VBG Base Excess 0.1 Sodium Potassium Chloride Carbon Dioxide Anion Gap BUN Creatinine Est GFR ( Amer) Est GFR (Non-Af Amer) Glucose Calcium Magnesium Total Bilirubin AST ALT Alkaline Phosphatase Total Protein Albumin Triglycerides Cholesterol LDL Cholesterol Direct VLDL Cholesterol HDL Cholesterol TSH Urine Color YELLOW Urine Appearance CLEAR Urine pH 6.0 Ur Specific [place] 1.015 Urine Protein 100 H Urine Glucose (UA) >=500 H Urine Ketones TRACE H Urine Blood NEGATIVE Urine Nitrite NEGATIVE Ur Leukocyte Esterase SMALL H Urine WBC (Auto) 19 Urine RBC (Auto) 2 Stool for White Cells NO WBCs SEEN 01/13/19 01/13/19 01/13/19 02:46 02:46 02:46 WBC 4.6 RBC 3.57 L Hgb 9.6 L Hct 29.1 L MCV 82 MCH 26.9 L MCHC 33.0 RDW 18.4 H Plt Count 230 Seg Neutrophils % 62.2 Lymphocytes % 24.4 Monocytes % 9.0 Eosinophils % 3.5 Basophils % 0.9 Absolute Neutrophils 2.9 Absolute Lymphocytes 1.1 Absolute Monocytes 0.4 Absolute Eosinophils 0.2 Absolute Basophils 0.0 VBG pH VBG pCO2 VBG HCO3 VBG Base Excess Sodium 137.9 Potassium 4.6 Chloride 106 Carbon Dioxide 25 Anion Gap 7 BUN 32 H Creatinine 1.60 H Est GFR ( Amer) 40 L Est GFR (Non-Af Amer) 33 L Glucose 181 H Calcium 8.7 Magnesium 1.5 L Total Bilirubin 0.9 AST 70 H ALT 44 Alkaline Phosphatase 445 H Total Protein 5.0 L Albumin 2.5 L Triglycerides 134 Cholesterol 91.10 LDL Cholesterol Direct 50 VLDL Cholesterol 27.0 HDL Cholesterol 23 L TSH 0.66 Urine Color Urine Appearance Urine pH Ur Specific [place] Urine Protein Urine Glucose (UA) Urine Ketones Urine Blood Urine Nitrite Ur Leukocyte Esterase Urine WBC (Auto) Urine RBC (Auto) Stool for White Cells 01/12/19 01/12/19 01/12/19 10:45 10:45 20:26 Creatine Kinase 129 134 CK-MB (CK-2) 1.32 Troponin I 0.018 NT-Pro-B Natriuret Pep 01/12/19 01/13/19 01/13/19 20:26 02:46 02:46 Creatine Kinase 95 CK-MB (CK-2) 1.33 0.80 Troponin I 0.027 0.023 NT-Pro-B Natriuret Pep 01/13/19 02:46 Creatine Kinase CK-MB (CK-2) Troponin I NT-Pro-B Natriuret Pep 2270 H Impressions: Abdomen/Pelvis CT 01/12/19 00:00 IMPRESSION: No acute findings. Transplant kidney left lower quadrant. Chest X-Ray 01/12/19 13:23 IMPRESSION: 1. No significant interval changes since the prior study dated 11/21/2018. No acute findings. Qualifiers - * PATIENT BEING DISCHARGED WITH ANY OF THE FOLLOWING DIAGNOSIS: No VTE patient discharged on overlapping Therapy?: No
[2019-01-13 12:56] VITALS: BP 119/46
[2019-01-13] MEDS ORDERED: MAGNESIUM OXIDE 400 MG TABLET PO SCH (18:00)
[2019-01-19 11:38] LABS: HEPATITIS C QUANTITATION HCV Not Detected IU/mL (.)
== END 2019-01-13 13:31 | disposition home or self-care (01) | DRG 683 ==
LOC: ER 08:59 → OBSVTOIN 13:16 → EH 13:16 → 4S 19:23
PROVIDERS: ADMIT Internal Medicine; ATTEND Internal Medicine
DX: N17.9 Acute kidney failure, unspecified (principal); E87.1 Hypo-osmolality and hyponatremia; Z94.0 Kidney transplant status; N39.0 Urinary tract infection, site not specified; E87.5 Hyperkalemia; E11.9 Type 2 diabetes mellitus without complications; I10 Essential (primary) hypertension; E78.5 Hyperlipidemia, unspecified; M19.90 Unspecified osteoarthritis, unspecified site; R06.02 Shortness of breath; R11.2 Nausea with vomiting, unspecified; Z79.84 Long term (current) use of oral hypoglycemic drugs; Z85.3 Personal history of malignant neoplasm of breast; Z79.4 Long term (current) use of insulin; Z79.52 Long term (current) use of systemic steroids
CPT/HCPCS: 36415; 71045; 74176; 80053; 80061; 81001; 82550; 82553; 82803; 82962; 83036; 83690; 83735; 83880; 84443; 84484; 85025; 86709; 87045; 87205; 87493; 87522; 89055; 93005; 93010; 96361; 96374; 99285; J1644; J1815; J2405; J7030; J7507; J7512

== ENCOUNTER → 2019-01-23 | Outpatient (CLI) | payer BC ==
--- NOTE | 2019-01-23 11:02 | RADIOLOGY REPORT (SQ) ---
EXAM DESCRIPTION: CT ABD/PELVIS NO ORAL OR IV COMPLETED DATE/TIME: 01/23/2019 9:33 am REASON FOR STUDY: R10.9 UNSPECIFIED ABDOMINAL PAIN R10.9 UNSPECIFIED ABDOMINAL PAIN Z94.0 KIDNEY T RANSPLANT STATUS R74.8 ABNORMAL LEVELS OF OTHER SERUM ENZYMES COMPARISON: CT abdomen pelvis 01/12/2019, 04/01/2017 TECHNIQUE: CT scan of the abdomen and pelvis performed without intravenous or oral contrast. Images reviewed with lung, soft tissue, and bone windows. Reconstructed coronal and sagittal MPR images revi ewed. All images stored on PACS. All CT scanners at this facility use dose modulation, iterative reconstruction, and/or weight based d osing when appropriate to reduce radiation dose to as low as reasonably achievable (ALARA). [facility]: Dose Right [facility]: CareDose [facility]: Dose Right [facility]: Teradose 4D [facility]: [employer] RADIATION DOSE: CT Rad equipment meets quality standard of care and radiation dose reduction techniq ues were employed. CTDIvol: 7.1 mGy. DLP: 395 mGy-cm.mGy. LIMITATIONS: None. FINDINGS: LOWER CHEST: No significant findings. No nodules or infiltrates. NON-CONTRASTED LIVER, SPLEEN, ADRENALS: There are multiple liver masses worrisome for metastatic dise ase, index lesions include a 3 x 3 cm right lobe liver nodule axial image 21, and a 5 x 5 cm mass and 3.5 x 3.2 cm mass in the left lobe liver on axial image 19. Spleen, adrenal glands are unremarkable . PANCREAS: No masses. No peripancreatic inflammatory changes. GALLBLADDER: No identified stones by CT criteria. No inflammatory changes to suggest cholecystitis. ZUNI KIDNEYS AND URETERS: Small [place] kidneys bilaterally, with profound cortical thinning No sign ificant calcifications. No hydronephrosis or hydroureter. LEFT LOWER QUADRANT TRANSPLANT KIDNEY: No suspicious masses. Assessment limited by lack of IV contras t. No significant calcifications. No hydronephrosis or hydroureter. AORTA AND RETROPERITONEUM: No aneurysm. No retroperitoneal masses or adenopathy. BOWEL AND PERITONEAL CAVITY: No obvious masses or inflammatory changes. No free fluid. APPENDIX: Normal. PELVIS, BLADDER, AND ABDOMINAL WALL:No abnormal masses. No free fluid. Bladder normal. POST HYSTEREC ARPAN BONES: No significant findings. OTHER: No other significant finding. IMPRESSION: Multiple liver masses worrisome for metastatic disease. Left lower quadrant transplant kidney unremarkable. COMMENT: Quality ID # [id number]: Final reports with documentation of one or more dose reduction techniques (e.g., Automated exposure control, adjustment of the mA and/or kV according to patient size, use of iterative reconstruction technique) TECHNICAL DOCUMENTATION: JOB ID: [id number] [employer]- All Rights Reserved Reading location - IP/workstation name: [email or web address]
--- NOTE | 2019-01-23 13:44 | RADIOLOGY REPORT (SQ) ---
EXAM DESCRIPTION: NM WHOLE BODY BONE SCAN COMPLETED DATE/TIME: 01/23/2019 1:33 pm REASON FOR STUDY: R74.8 ABNORMAL LEVELS OF OTHER SERUM ENZYMES R10.9 UNSPECIFIED ABDOMINAL PAIN Z94 .0 KIDNEY TRANSPLANT STATUS R74.8 ABNORMAL LEVELS OF OTHER SERUM ENZYMES COMPARISON: CT abdomen pelvis 01/23/2019, 01/12/2019 RADIONUCLIDE AND DOSE: 21.3 millicuries Tc99m MDP. The route of agent administration: Intravenous. ADDITIONAL DRUGS AND DOSES: None. TECHNIQUE: Routine delayed images at 3 hour post radionuclide injection acquired of the bony skeleto n including anterior and posterior whole-body projections and additional focused images as needed. LIMITATIONS: None. FINDINGS: BONES: Normal visualization without areas of photopenia or increased bony uptake of radiop harmaceutical. KIDNEYS: Activity in the left lower quadrant transplant kidney. OTHER: No other significant finding. IMPRESSION: NORMAL BONE SCAN. COMMENT: Quality measure 147: Current bone scan is compared with any available plain radiographs, p rior bone scans, and CT/MRI. TECHNICAL DOCUMENTATION: JOB ID: [id number] [employer]- All Rights Reserved Reading location - IP/workstation name: [email or web address]
== END ==
LOC: RAD 09:00
PROVIDERS: ATTEND Physician Assistant Medical
DX: R74.8 Abnormal levels of other serum enzymes (principal); R10.9 Unspecified abdominal pain; Z94.0 Kidney transplant status
CPT/HCPCS: 78306; 74176; A9561; Q9969